=== PATIENT | male | born 1975 | race Caucasian/White ===

== ENCOUNTER 2024-05-02 10:38 | Emergency (ER) | payer SELFPAY ==
[2024-05-02] VITALS (15 sets, daily range): BP systolic 128–161; BP diastolic 69–89; PULSE 66–78; TEMP 36.6; O2SAT 95–100; BMI 32.4
--- NOTE | 2024-05-02 10:45 | ECG_ITS ---
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
--- NOTE | 2024-05-02 10:45 | XR_ITS ---
The [address] [address] Patient Name: JULIO CONCEPCION MRN: [id number] date: 1975 Sex: M Assigned Patient Location: ED.MAIN Current Patient Location: ED.MAIN Accession/Order Number: [id number] Exam Date: 05/02/2024 12:10 Report Date: 05/02/2024 12:27 At the request of: IDRSI QUINTANILLA Procedure: XR chest 1V EXAM: XR chest 1V HISTORY: Shortness of breath COMPARISON: 10/11/2019 TECHNIQUE: Single view of the chest FINDINGS: Heart and vascularity are unremarkable. Lungs are free of focal infiltrates. Minimal increased density is noted in the right cost phrenic angle. Right upper lobe is unremarkable. EKG leads overlie the chest. XR/XR chest 1V IMPRESSION: Small amount of increased density in the left cost phrenic angle. Findings could represent atelectasis, scarring, or less likely an early infiltrate. Remainder of lung mann are unremarkable. Electronically authenticated by: HA MIRANDA Date: 05/02/2024 12:27
[2024-05-02 11:01] LABS: Basophils Absolute Auto 0.1 10^3/uL (0.0-0.1); Basophils Percent Auto 0.6 % (0.2-2.0); Eosinophils Absolute Auto 0.6 10^3/uL (0.0-0.7); Eosinophils Percent Auto 4.4 % (0.9-7.0); Hematocrit 43.4 % (42.0-54.0); Immature Granulocytes Abs Auto 0.05 10^3/uL (0.00-0.03); Immature Granulocytes Pct Auto 0.4 % (0.0-0.5); Lymphocytes Absolute Auto 3.6 10^3/uL (1.2-3.8); Lymphocytes Percent Auto 28.2 % (20.5-60.0); Mean Corpuscular HGB Conc 34.6 g/dL (29.9-35.2); Mean Corpuscular Hemoglobin 27.8 pg (25.9-34.0); Mean Corpuscular Volume 80.5 fL (80.0-94.0); Mean Platelet Volume 9.3 fL (9.5-13.5); Monocytes Absolute Auto 0.7 10^3/uL (0.3-0.8); Monocytes Percent Auto 5.5 % (1.7-12.0); Neutrophils Absolute Auto 7.7 10^3/uL (1.4-6.5); Neutrophils Percent Auto 60.9 % (43.0-75.0); Platelet Count 270 10^3/uL (150-450); Red Blood Count 5.39 10^6/uL (4.70-6.10); Red Cell Distribution Width 13.4 % (11.0-15.0); White Blood Count 12.7 10^3/uL (4.0-11.0)
[2024-05-02] MEDS: IPRATROPIUM/ALBUTEROL SULFATE 3 ML AMPUL.NEB IH ×2 (11:16→13:46)
[2024-05-02 11:21] LABS: Prothrombin Time 9.8 sec (9.0-11.6)
[2024-05-02] MEDS: METHYLPREDNISOLONE SOD SUCC PF 125 MG/2 ML VIAL IVP (11:23)
[2024-05-02 11:26] LABS: Alanine Aminotransferase 23 U/L (16-63); Albumin Globulin Ratio 0.7; Albumin Level 3.2 g/dL (3.4-5.0); Alkaline Phosphatase 93 U/L (46-116); Anion Gap 14.2; BUN Creatinine Ratio 19.8; Bilirubin Total 0.4 mg/dL (0.2-1.0); Calcium 9.2 mg/dL (8.5-10.1); Carbon Dioxide 24.1 mmol/L (21.0-32.0); Estimated GFR (African America >60 (>=60); Estimated GFR (Non-African Ame >60 (>=60); Globulin 4.3 g/dL; Glucose 272 mg/dL (74-106); Magnesium 1.8 mg/dL (1.8-2.4); Total Protein 7.5 g/dL (6.4-8.2); Troponin I High Sensitivity 4.9 pg/mL (4.0-76.1)
[2024-05-02 11:30] LABS: INR <0.93
[2024-05-02 11:30] LABS: Internal Control Within Normal Limits; SARS-CoV-2 Ag NEGATIVE (NEGATIVE)
[2024-05-02 11:31] LABS: Lactate/Lactic Acid 1.3 mmol/L (0.4-2.0)
[2024-05-02 11:45] LABS: Aspartate Amino Transferase <5 U/L (15-37); Chloride 97 mmol/L (98-107); Sodium 131 mmol/L (136-145)
[2024-05-02 11:58] LABS: Potassium 4.3 mmol/L (3.5-5.1)
[2024-05-02 12:14] LABS: Ethanol 3 mg/dL
--- NOTE | 2024-05-02 12:59 | ED_ITS ---
HPI - SOB/Dyspnea General Chief Complaint: Shortness of Breath/Dyspnea Stated Complaint: SOB Time Seen by Provider: 05/02/24 10:45 Source: patient Mode of arrival: Wheelchair Limitations: no limitations History of Present Illness HPI Narrative: The patient have history of COPD he is a smoker of 2 packs of cigarettes daily, presenting to us with 2 days history of generalized body ache associated with cough as well as shortness of breath, it was noted that the patient almost passed out and fell to the floor when he got to the registration he did not actually pass out when I presented to evaluate him he was awake. 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 05/02/24 05/02/24 unit-liraglutide 3.6 mg/mL(3 mL) subcutaneous pen (Xultophy 100/3.6) lisinopril 5 mg tablet 5 mg PO DAILY 05/02/24 05/02/24 metoprolol tartrate 50 mg tablet 50 mg PO BID 05/02/24 05/02/24 oxycodone-acetaminophen 10 mg-325 1 tab PO Q6H PRN pain 05/02/24 05/02/24 mg tablet terbinafine HCl 250 mg tablet 250 mg PO DAILY 05/02/24 05/02/24 Allergies Allergy/AdvReac Type Severity Reaction Status Date / Time morphine Allergy Severe Anaphylaxis Verified 05/02/24 10:51 Review of Systems ROS Status of ROS 10 or more systems reviewed and unremark able except as noted in history and below Exam Narrative Exam Narrative: Nurses notes and vital signs reviewed and patient is not hypoxic. General: Well-appearing and in no apparent distress. Skin: Warm, dry, no pallor noted. No rash. Head: Normocephalic, atraumatic. Neck: Supple, non-tender. Eye: Pupils are equal, round and EOMI. No scleral icterus. Ears, Nose, Mouth, and Throat: TM are clear, no nasal mucosal hypertrophy. Oral mucosa is moist, no posterior oropharynx erythema, uvula is mid-line Cardiovascular: Regular Rate and Rhythm without murmur, gallop or rub. Respiratory: Distant breathing sound bilaterally Chest Wall: no tenderness Back: No midline thoracic or lumbar vertebral tenderness. No CVA tenderness Musculoskeletal: normal ROM, no calf or popliteal tenderness, no lower extremity edema/swelling GI: Abdomen is soft, non-distended. Normal bowel sounds. No masses appreciated. No tenderness to palpation. No rebound, guarding, or rigidity noted. Neurological: A&O x4. No cranial nerve dysfunction observed. No truncal ataxia. Moves all extremities. Sensation intact. Psychiatric: Cooperative and interactive. Normal mood and affect. Constitutional Vital Signs, click to edit/add: Last Vital Signs Temp 97.9 F 05/02/24 10:45 Pulse 67 05/02/24 13:25 Resp 14 05/02/24 13:25 BP 146/82 H 05/02/24 13:25 Pulse Ox 98 05/02/24 13:25 O2 Del Method Room Air 05/02/24 11:17 Course Vital Signs Vital signs: Vital Signs Temperature 97.9 F 05/02/24 10:45 Pulse Rate 78 05/02/24 10:45 Respiratory Rate 22 H 05/02/24 10:45 Blood Pressure 161/89 H 05/02/24 10:45 Pulse Oximetry 98 05/02/24 10:45 Oxygen Delivery Method Room Air 05/02/24 10:45 Temperature 97.9 F 05/02/24 10:45 Pulse Rate 67 05/02/24 13:25 Respiratory Rate 14 05/02/24 13:25 Blood Pressure 146/82 H 05/02/24 13:25 Pulse Oximetry 98 05/02/24 13:25 Oxygen Delivery Method Room Air 05/02/24 11:17 MDM - SOB/Dyspnea MDM Narrative Medical decision making narrative: The patient EKG in the ER showing sinus rhythm with a heart rate of [address] elevation or depression Upon presentation the patient mentioned that he smokes cigarettes almost 2 packs a day His presentation was shortness of breath on exertion as well as generalized body ache could be secondary to viral illness and COPD exacerbation Chest x-ray showed possible infiltrate or atelectasis with the patient presentation he will be covered with azithromycin The patient was feeling much better after breathing treatment in the ER as well as Solu-Medrol Patient was discharged home with the prednisone as well as Z-Pratik The patient is to follow up with primary care physician in next 2-3 days or to return to the emergency department should any of the signs or symptoms worsen or new symptoms develop. The patient agrees with the following Diagnosis and Treatment plan and the patient will be discharged home. Lab Data Labs: Lab Results 05/02/24 05/02/24 Range/Units 10:53 11:07 WBC 12.7 H (4.0-11.0) 10^3/uL RBC 5.39 (4.70-6.10) 10^6/uL Hgb 15.0 (14.0-18.0) g/dL Hct 43.4 (42.0-54.0) % MCV 80.5 (80.0-94.0) fL MCH 27.8 (25.9-34.0) pg MCHC 34.6 (29.9-35.2) g/dL RDW 13.4 (11.0-15.0) % Plt Count 270 (150-450) 10^3/uL MPV 9.3 L (9.5-13.5) fL Neut % (Auto) 60.9 (43.0-75.0) % Lymph % (Auto) 28.2 (20.5-60.0) % [place] % (Auto) 5.5 (1.7-12.0) % Eos % (Auto) 4.4 (0.9-7.0) % Baso % (Auto) 0.6 (0.2-2.0) % Neut # (Auto) 7.7 H (1.4-6.5) 10^3/uL Lymph # (Auto) 3.6 (1.2-3.8) 10^3/uL [place]uming # (Auto) 0.7 (0.3-0.8) 10^3/uL Eos # (Auto) 0.6 (0.0-0.7) 10^3/uL Baso # (Auto) 0.1 (0.0-0.1) 10^3/uL Abs Immat Gran (auto) 0.05 H (0.00-0.03) 10^3/uL Imm/Tot Granulo (auto) 0.4 (0.0-0.5) % PT 9.8 (9.0-11.6) sec INR <0.93 Sodium 131 L (136-145) mmol/L Potassium 4.3 (3.5-5.1) mmol/L Chloride 97 L (98-107) mmol/L Carbon Dioxide 24.1 (21.0-32.0) mmol/L Anion Gap 14.2 BUN 16.0 (7.0-18.0) mg/dL Creatinine 0.81 (0.70-1.30) mg/dL Est GFR ( Amer) >60 (>=60) Est GFR (Non-Af Amer) >60 (>=60) BUN/Creatinine Ratio 19.8 Glucose 272 H (74-106) mg/dL Lactate 1.3 (0.4-2.0) mmol/L Calcium 9.2 (8.5-10.1) mg/dL Magnesium 1.8 (1.8-2.4) mg/dL Total Bilirubin 0.4 (0.2-1.0) mg/dL AST <5 L (15-37) U/L ALT 23 (16-63) U/L Alkaline Phosphatase 93 (46-116) U/L Troponin I High Sens 4.9 (4.0-76.1) pg/mL Total Protein 7.5 (6.4-8.2) g/dL Albumin 3.2 L (3.4-5.0) g/dL Globulin 4.3 g/dL Albumin/Globulin Ratio 0.7 Ethanol Quant 3 mg/dL SARS-CoV-2 Ag (CV2AG) Negative (NEGATIVE) Discharge Plan Discharge Stand Alone Forms: Work/School Release, Portal Instructions Chief Complaint: Shortness of Breath/Dyspnea Clinical Impression: COPD exacerbation, Community acquired pneumonia Patient Disposition: Home, Self-Care Time of Disposition Decision: 13:36 Condition: Good Prescriptions / Home Meds: No Action terbinafine HCl 250 mg tablet 250 mg PO DAILY oxycodone-acetaminophen 10-325 mg tablet 1 tab PO Q6H PRN (Reason: pain) metoprolol tartrate 50 mg tablet 50 mg PO BID lisinopril 5 mg tablet 5 mg PO DAILY fluocinonide 0.05 % cream 1 applic TOPICAL BID Xultophy 100/3.6 100 unit-3.6 mg /mL (3 mL) insulin pen 50 unit SUBCUT .a.m. Print Language: [place] Instructions: COPD (Chronic Obstructive Pulmonary Disease) (DC), Community Acquired Pneumonia (ED) Referrals: Physician,Non-Staff, MD [Primary Care Provider] - 1 week
[2024-05-02] MEDS: KETOROLAC TROMETHAMINE 30 MG/ML VIAL 15 MG IVP (13:49)
[2024-05-02] MEDS: AZITHROMYCIN 250 MG TABLET 500 MG PO (13:50)
== END 2024-05-02 14:05 | disposition home or self-care (01) ==
PROVIDERS: Emergency Provider Emergency Medicine; Family Provider Internal Medicine
DX: J18.9 Pneumonia, unspecified organism (principal); J44.1 Chronic obstructive pulmonary disease with (acute) exacerbation; J44.0 Chronic obstructive pulmonary disease with (acute) lower respiratory infection; F17.210 Nicotine dependence, cigarettes, uncomplicated; Z20.822 Contact with and (suspected) exposure to COVID-19
CPT/HCPCS: 36415; 71045; 80053; 80320; 83605; 83735; 84484; 85025; 85610; 87811; 93005; 94640; 96374; 96375; 99285; J1885; J2919

== ENCOUNTER 2025-01-31 13:48 | Outpatient (OUT) | payer MEDICARE, SELFPAY ==
[2025-01-31 14:11] LABS: Basophils Absolute Auto 0.1 10^3/uL (0.0-0.1); Basophils Percent Auto 0.7 % (0.2-2.0); Eosinophils Absolute Auto 0.9 10^3/uL (0.0-0.7); Eosinophils Percent Auto 7.8 % (0.9-7.0); Hematocrit 42.7 % (42.0-54.0); Hemoglobin 13.8 g/dL (14.0-18.0); Immature Granulocytes Abs Auto 0.05 10^3/uL (0.00-0.03); Immature Granulocytes Pct Auto 0.4 % (0.0-0.5); Lymphocytes Absolute Auto 2.9 10^3/uL (1.2-3.8); Mean Corpuscular HGB Conc 32.3 g/dL (29.9-35.2); Mean Corpuscular Hemoglobin 24.9 pg (25.9-34.0); Mean Corpuscular Volume 77.1 fL (80.0-94.0); Mean Platelet Volume 9.4 fL (9.5-13.5); Monocytes Absolute Auto 0.5 10^3/uL (0.3-0.8); Monocytes Percent Auto 4.6 % (1.7-12.0); Neutrophils Absolute Auto 6.8 10^3/uL (1.4-6.5); Neutrophils Percent Auto 60.5 % (43.0-75.0); Platelet Count 408 10^3/uL (150-450); Red Blood Count 5.54 10^6/uL (4.70-6.10); Red Cell Distribution Width 14.7 % (11.0-15.0); White Blood Count 11.3 10^3/uL (4.0-11.0)
--- NOTE | 2025-01-31 14:24 | CT_ITS ---
The [address] [address] Patient Name: JULIO CONCEPCION MRN: [id number] date: 1975 Sex: M Assigned Patient Location: CT Current Patient Location: CT Accession/Order Number: [id number] Exam Date: 01/31/2025 15:59 Report Date: 01/31/2025 16:15 At the request of: IMANI SMITH Procedure: CT abdomen pelvis w con CT abdomen pelvis w con 01/31/2025 3:54 PM SIGNS AND SYMPTOMS: Abdominal pain greatest in the right upper quadrant TECHNIQUE: Multidetector ct axial images of the abdomen and pelvis were obtained without IV contrast. Multiplanar reformats were performed and reviewed to further define anatomy and possible pathology. CT was performed with one or more of the following dose reduction techniques: Automated exposure control, adjustment of the mA and/or kV according to patient size, or use of iterative reconstruction technique. COMPARISON: 03/12/2020 and 02/28/2020 FINDINGS: Lower Chest: Within normal limits. ABDOMEN: Liver: The liver is mildly hypoattenuating suggesting hepatic steatosis. Bile Ducts: Normal caliber. Gallbladder: No calcified gallstones. Normal caliber wall. Pancreas: There is a heterogeneously enhancing 3.9 x 4.2 cm structure within the body of the pancreas with dilation of the pancreatic duct distally. There are accompanying calcifications. This is larger when compared to the prior exam. This abuts the splenic artery appears to be patent. There is soft tissue fullness in the periportal region suggesting lymphadenopathy with the largest lymph node measuring 1.2 cm in short axis. These are more pronounced when compared to the prior exam suggestive of local metastatic disease. Spleen: Within normal limits. Adrenals: Within normal limits. Kidneys: There is a simple cyst in the left renal cortex requiring no further follow-up. Pelvis: Reproductive Organs: No pelvic masses. Ureters: Within normal limits. Bladder: Within normal limits. Bowel: There is a large amount stool within the rectum suggesting fecal impaction. Uncomplicated colonic diverticula are present. There is a normal appendix in the right lower quadrant. Mesenteric Lymph Nodes: No enlarged mesenteric lymph nodes. Peritoneum: No ascites or free air, no fluid collection. Vessels: within normal limits Retroperitoneum: Within normal limits. Abdominal Wall: Within normal limits. Bones: Degenerative changes are noted in the thoracolumbar spine, greatest at L5-S1 with significant bilateral neural foraminal narrowing at L3-L4, L4-5, and L5-S1. There is evidence of prior posterior decompression at L5-S1. CT/CT abdomen pelvis w con IMPRESSION: There is a heterogeneously enhancing 3.9 x 4.2 cm structure within the body of the pancreas with dilation of the pancreatic duct distally. There are accompanying calcifications. This is larger when compared to the prior exam. This abuts the splenic artery appears to be patent. There is soft tissue fullness in the periportal region suggesting lymphadenopathy with the largest lymph node measuring 1.2 cm in short axis. These are more pronounced when compared to the prior exam suggestive of local metastatic disease. The liver is mildly hypoattenuating suggesting hepatic steatosis. There is a large amount stool within the rectum suggesting fecal impaction. Uncomplicated colonic diverticula are present. Impression dictated by: Farzad Ashby M.D. 01/31/2025 4:15 PM Dictation Location: [place] [address] Electronically authenticated by: [id number] Y Date: 01/31/2025 16:15
[2025-01-31 14:32] LABS: Amylase 124 U/L (25-115)
[2025-01-31 14:34] LABS: Alanine Aminotransferase 19 U/L (16-63); Albumin Globulin Ratio 0.6; Albumin Level 2.9 g/dL (3.4-5.0); Alkaline Phosphatase 103 U/L (46-116); Anion Gap 12.1; Aspartate Amino Transferase 11 U/L (15-37); Bilirubin Total 0.2 mg/dL (0.2-1.0); Calcium 9.1 mg/dL (8.5-10.1); Carbon Dioxide 29.6 mmol/L (21.0-32.0); Chloride 100 mmol/L (98-107); Estimated GFR (African America >60 (>=60 mL/min/1.73m^2); Estimated GFR (Non-African Ame >60 (>=60 mL/min/1.73m^2); Glucose 308 mg/dL (74-106); Potassium 4.7 mmol/L (3.5-5.1); Sodium 137 mmol/L (136-145); Total Protein 7.9 g/dL (6.4-8.2)
--- OUTSIDE RECORDS SUMMARY | 2025-01-31 18:31 | XMS_ITS | CCD ---
Author Organization [facility] Care Team Providers Care Import/Export Clerk Name Role Phone AMBER ZAMARRIPA Unavailable Unavailable AMBER ZAMARRIPA Unavailable Unavailable KIRYB HOLT Unavailable Unavailable DEJEМАРИЯEAMADO N Unavailable Unavailable IKEZUAGU, MBONU N Unavailable Unavailable KIRBY HLOT B Unavailable Unavailable SINCERE LEA Unavailable Unavailable KIRBY HOLT B Unavailable Unavailable ZAKERI, AHMAD Unavailable Unavailable IKEZUAGU, MBONU N Unavailable Unavailable IKEZUAGU, MBONU N Unavailable Unavailable BLOOD, DAYANA P Unavailable Unavailable NARWAL, RAWAN Unavailable Unavailable IKEZUAGU, MBONU N Unavailable Unavailable MYRIAM, CECELIA S Unavailable Unavailable LOBARYEN Unavailable Unavailable CULLEN MONTANA Attending Unavailable CULLEN MONTANA Admitting Unavailable SARAH, DR DIALLO Primary Care Unavailable SARAH, DR DIALLO Primary Care Unavailable CULLEN MONTANA Admitting Unavailable CULLEN MONTANA Attending Unavailable LYNETTE, DR WISE Attending Unavailable LYNETTE, DR WISE Admitting Unavailable SARAH, DR DIALLO Primary Care Unavailable LYNETTE, DR WISE Consulting Unavailable CHIQUIS LOCK Consulting Unavailable SWATHI TITUS Consulting Unavailable ERICA CLAYTON Consulting Unavailable SARAH, DR DIALLO Primary Care Unavailable CULLEN MONTANA Admitting Unavailable CULLEN MONTANA Attending Unavailable SARAH, DR DIALLO Primary Care Unavailable CULLEN MONTANA Attending Unavailable CULLEN MONTANA Admitting Unavailable SARAH, DR DIALLO Primary Care Unavailable CULLEN MONTANA Admitting Unavailable CULLEN MONTANA Attending Unavailable PRINCESS TEJEDA Attending Unavailable PRINCESS TEJEDA Admitting Unavailable SARAH, DR DIALLO Primary Care Unavailable DR MARIE PORTILLO Consulting Unavailable NIRMALA, DR JOYA Garcia Consulting Unavailable CULLEN MONTANA Consulting Unavailable PRINCESS TEJEDA Consulting Unavailable JOSE LEGGETT Consulting Unavailable STEPHAN KC Consulting Unavailable HEATHER, DR GAIL Garcia Attending Unavailable HEATHER, DR GAIL Garcia Admitting Unavailable SARAH, DR DIALLO Primary Care Unavailable HEATHER, DR GAIL Garcia Consulting Unavailable SARAH, DR DIALLO Consulting Unavailable SARAH, DR DIALLO Attending Unavailable SARAH, DR DIALLO Admitting Unavailable SARAH, DR DIALLO Primary Care Unavailable ALLYSON RODRIGEZ Consulting Unavailable SAILAJA SHAW Attending UnavailSTEPHAN Powell Admitting Unavailable HOLT, DR DIALLO Primary Care Unavailable ZIMARIBETH, DR JOYA Garcia Consulting Unavailable SAILAJA SHAW Consulting Unavailabl e CULLEN MONTANA Attending Unavailable HIGHLANDER, CULLEN Ocampo Admitting Unavailable HOLT, DR DIALLO Primary Care Unavailable HOLT, DR DIALLO Primary Care Unavailable HIGHLRAQUEL, CULLEN Ocampo Admitting Unavailable RUBÉN, CULLEN Ocampo Attending Unavailable SARAH, DR DIALLO Primary Care Unavailable RUBÉN, CULLEN Ocampo Admitting Unavailable HIGHLANDER, CULLEN Ocampo Attending Unavailable SARAH, DR DIALLO Primary Care Unavailable RUBÉN, CULLEN Ocampo Admitting Unavailable HIGHLRAQUEL, CULLEN Ocampo Attending Unavailable SARAH, DR DIALLO Primary Care Unavailable CULLEN MONTANA Admitting Unavailable RUBÉN, CULLEN Ocampo Attending Unavailable Kirby Holt MD Primary Care Provider Kirby Holt MD Unavailable [phone] Santiago INSTRUCTIONAL TECHNOLOGY INSTRUCTOR, Faith Unavailable NONE, XXXX Primary Care Physician Unavailab Julio Ramires Attending Unavailable Zahra Wright RN Unavailable Santiago INSTRUCTIONAL TECHNOLOGY INSTRUCTOR, Humera Unavailable Unavailable SELENA CONTRERAS Attending Unavailable KIRBY HOLT Attending Unavailable KIRBY HOLT Attending Unavailable KIRBY HOLT Attending Unavailable KIRBY HOLT Attending Unavailable ANUJ ROBERTSON Attending Unavailable KIRBY HOLT Referring Unavailable Allergies Allergy Classification Reported Allergen(s) Allergy Type Date of Onset Reaction(s) Facility (1 source) Cephalexin Drug Allergy 10-29-2019 [facility] Rep[facility] (3 sources) Morphine; Translations: [morphine] Drug Allergy 08-05-2014 [facility] (20 sources) Morphine; Translations: [morphine] Drug Allergy 05-20-2018 Unknown [facility] Healthcare Work Phone: Medications Current Medications Medication Drug Class(es) Dates Sig (Normalized) Sig (Original) acetaminophen 325 mg / oxyCODONE hydrochloride 10 mg oral tablet (20 sources) Opioid Agonist Start: 12-14-2024 End: 02-18-2025 take 1 tablet by mouth every six hours for pain oxyCODONE-acetamino phen (Percocet) 10-325 MG tablet Indications: Spinal stenosis of lumbar region, unspecified whether neurogenic claudication present Take 1 tablet by mouth every 6 (six) hours if needed for severe pain 120 tablet 01/19/2025 02/18/2025 Active Start: 11-02-2024 End: 12-12-2024 take 1 tablet by mouth every six hours for pain oxyCODONE-acetaminophen (Percocet) 10-32 5 MG tablet Indications: Spinal stenosis of lumbar region, unspecified whether neurogenic claudication present Take 1 tablet by mouth every 6 (six) hours if needed for severe pain 120 tablet 11/07/2024 12/12/2024 Discontinued (Reorder) Start: 07-05-2024 End: 10-31-2024 take 1 tablet by mouth every six hours for pain oxyCODONE-acetaminophen (Percocet) 10-32 5 MG tablet Indications: Spinal stenosis of lumbar region, unspecified whether neurogenic claudication present Take 1 tablet by mouth every 6 (six) hours if needed for severe pain 120 tablet 09/30/2024 10/31/2024 Discontinued (Reorder) Start: 03-30-2024 End: 06-02-2024 take 1 tablet by mouth every six hours for pain oxyCODONE-acetaminophen (Percocet) 10-32 5 MG tablet Indications: Spinal stenosis of lumbar region, unspecified whether neurogenic claudication present Take 1 tablet by mouth every 6 (six) hours if needed for severe pain 120 tablet 06/02/2024 Active [id number] actuat albuterol 0.09 mg/actuat metered dose inhaler (20 sources) beta2-Adrenergic Agonist Start: 06-02-2024 End: 06-02-2025 take 2 puff(s) by inhalation every four hours for wheezing albuterol HFA (Ventolin HFA) 90 mcg/act inhaler Indications: Tachycardia Inhale 2 puffs every 4 (four) hours if needed for wheezing 18 g 11 06/02/2024 06/02/2025 Active End: 06-02-2024 take 1 puff(s) by inhalation every six hours for wheezing albuterol HFA 90 mcg/act inhaler Inhale 1 puff every 6 (six) hours if needed for wheezing or shortness of breath. 06/02/2024 Discontinued ALPRAZolam 0.5 mg oral tablet (20 sources) Benzodiazepine Start: 07-03-2022 take 1 tablet by mouth four times daily as needed for anxiety ALPRAZolam (Xanax) 0.5 MG tablet Take 0.5 mg by mouth 4 (four) times a day as needed for anxiety. 07/03/2022 Active amoxicillin 875 mg / clavulanate 125 mg oral tablet (2 sources) Penicillin-class Antibacterial Start: 08-01-2024 End: 08-11-2024 take 1 tablet by mouth in the morning amoxicillin-clavul anate (Augmentin) 875-125 MG tablet Indications: Acute non-recurrent sinusitis, unspecified location Take 1 tablet (875 mg) by mouth in the morning and 1 tablet (875 mg) before bedtime. Do all this for 10 days. 20 tablet 08/01/2024 08/11/2024 Active azithromycin 250 mg oral tablet (3 sources) Macrolide Antimicrobial Start: 05-02-2024 End: 05-07-2024 azithromycin (Zithromax) 250 MG tablet 05/02/2024 05/07/2024 Active famotidine 20 mg oral tablet (2 sources) Histamine-2 Receptor Antagonist take 1 tablet by mouth once daily famotidine (Pepcid) 20 MG tablet Take 20 mg by mouth Daily Active fluocinonide 0.5 mg/ml topical cream (20 sources) Corticosteroid Start: 04-04-2024 fluocinonide (Lidex) 0.05 % cream Indications: Onychomycosis APPLY TO AFFECTED AREA TWICE A DAY 60 g 5 04/04/2024 Active 3 ml insulin degludec 100 unt/ml / liraglutide 3.6 mg/ml pen injector (20 sources) Insulin Analog, GLP-1 Receptor Agonist Start: 01-01-2024 End: 12-31-2024 insulin degludec-liragluti de (Xultophy) 100-3.6 UNIT-MG/ML pen Indications: Type 2 diabetes mellitus with diabetic polyneuropathy, with long-term current use of insulin ([facility]) , Type 2 diabetes mellitus with other skin complications INJECT 50 UNITS UNDER THE SKIN EVERY DAY 15 mL 9 06/29/2024 Active lisinopril 5 mg oral tablet (20 sources) Angiotensin Converting Enzyme Inhibitor Start: 07-27-2024 End: 08-26-2024 take 1 tablet by mouth once daily lisinopril 5 MG tablet Indications: Essential hypertension (CMS/HCC) Take 1 tablet (5 mg) by mouth Daily 30 tablet 07/27/2024 Active Start: 05-12-2023 End: 05-04-2024 take 1 tablet by mouth once daily lisinopril 5 MG tablet Indications: Essential hypertension (CMS/HCC) Take 1 tablet (5 mg) by mouth Daily 100 tablet 3 05/04/2024 Active loratadine 10 mg oral tablet (20 sources) take 1 tablet by mouth in the morning loratadine (Claritin) 10 MG tablet Take 10 mg by mouth in the morning. Active metoprolol tartrate 50 mg oral tablet (20 sources) beta-Adrenergic Denny Start: 03-18-20 End: 06-02-20 take 1 tablet by mouth in the morning metoprolol tartrate (Lopressor) 50 MG tablet Indications: Tachycardia Take 1 tablet (50 mg) by mouth in the morning and 1 tablet (50 mg) before bedtime. 180 tablet 3 06/02/2024 06/02/2025 Active naproxen 500 mg oral tablet (1 source) Nonsteroidal Anti-inflammatory Drug Start: 08-15-20 End: 08-25-20 take 1 tablet by mouth twice daily naproxen 500 mg Tab 500 mg = 1 tab(s), Oral, BID, X 10 day(s), # 20 tab(s), Refills(s) 0, Pharmacy: [facility]/pharmacy #[id number], 193, cm, 08/15/24 11:51:00 EST, Height/Length Dosing, 119.5, kg, 08/15/24 11:51:00 EST, Weight Dosing Start Date: 08/15/24 Stop Date: 08/25/24 Status: Ordered nystatin 100 unt/mg topical powder (20 sources) Polyene Antifungal Start: 03-31-20 nystatin (Mycostatin) 387449 UNIT/GM powder APPLY DAILY TO SKIN TO AFFECTED AREA TWICE A DAY FOR 2 WEEKS 03/31/2022 Active omeprazole 40 mg delayed release oral capsule (2 sources) Proton Pump Inhibitor Start: 01-24-20 End: 01-24-20 take 1 capsule by mouth in the morning omeprazole (PriLOSEC) [address] capsule Indications: Gastroesophageal reflux disease, unspecified whether esophagitis present Take 1 capsule (40 mg) by mouth in the morning and 1 capsule (40 mg) in the evening. Take before meals. Do not crush or chew. 60 capsule 1 01/23/2025 01/23/2026 Active predniSONE 20 mg oral tablet (3 sources) Start: 05-02-20 End: 05-08-20 predniSONE (Deltasone) 20 MG tablet 05/02/2024 05/08/2024 Active terbinafine 250 mg oral tablet (20 sources) Allylamine Antifungal Start: 07-05-20 End: 11-08-19 take 1 tablet by mouth in the morning terbinafine (LamISIL) 250 MG tablet Indications: Onychomycosis Take 1 tablet (250 mg) by mouth in the morning. 60 tablet 11/07/2024 Active Start: 02-22-2024 End: 05-04-2024 take 1 tablet by mouth in the morning terbinafine (LamISIL) 250 MG tablet Indications: Onychomycosis Take 1 tablet (250 mg) by mouth in the morning. 60 tablet 05/04/2024 Active Completed/Discontinued Medications Medication Drug Class(es) Dates Sig (Normalized) Sig (Original) methylPREDNISolone (7 sources) Corticosteroid Start: 12-29-2024 End: 01-23-2025 methylPREDNISolone (Medrol Dospak) 4 MG tablets Indications: Spinal stenosis of lumbar region, unspecified whether neurogenic claudication present TAKE 6 TABLETS ON DAY 1 DIRECTED ON PACKAGE AND DECREASE BY 1 TAB EACH DAY FOR A TOTAL OF 6 DAYS each 12/29/2024 01/23/2025 Discontinued (Therapy completed) Start: 12-29-2024 methylPREDNISo lone (Medrol Dospak) 4 MG tablets Indications: Spinal stenosis of lumbar region, unspecified whether neurogenic claudication present TAKE 6 TABLETS ON DAY 1 DIRECTED ON PACKAGE AND DECREASE BY 1 TAB EACH DAY FOR A TOTAL OF 6 DAYS 21 each 12/29/2024 Active Start: 09-01-2024 End: 09-08-2024 methylPREDNISolone (Medrol D ospak) 4 MG tablets Indications: Spinal stenosis of lumbar region, unspecified whether neurogenic claudication present Follow schedule on package instructions 21 tablet 09/01/2024 09/08/2024 Active Start: 08-15-2024 End: 08-21-2024 Medrol 4 mg Tab = 1 packet(s ), Oral, As Directed, as directed on package labeling, X 6 day(s), # 21 tab(s), Refills(s) 0, Pharmacy: [facility]/pharmacy #[id number], 193, cm, 08/15/24 11:51:00 EST, Height/Length Dosing, 119.5, kg, 08/15/24 11:51:00 EST, Weight Dosing Start Date: 08/15/24 Stop Date: 08/21/24 Status: Ordered pantoprazole 20 mg delayed release oral tablet (20 sources) Proton Pump Inhibitor End: 01-23-2025 take 1 tablet by mouth before mealtime pantoprazole (Protonix) 20 MG EC tablet Take 20 mg by mouth in the morning. Take before meals. 01/23/2025 Discontinued Problems Active Problems Problem Classification Problem Date Documented Date Episodic/Chronic Abdominal pain (10 sources) Unspecified abdominal pain; Translations: [Epigastric pain] Onset: 01-12-2022 Episodic Anxiety disorders (10 sources) Anxiety disorder, unspecified; Translations: [Generalized anxiety disorder] Onset: 01-10-2022 11-07-2024 Chronic Asthma (20 sources) Mild intermittent asthma; Translations: [Mild intermittent asthma, uncomplicated] Onset: 01-15-2024 01-15-2024 Chronic Chronic obstructive pulmonary disease and bronchiectasis (1 source) Chronic obstructive pulmonary disease, unspecified; Translations: [COPD UNSPECIFIED] Onset: 01-14-2022 Chronic Chronic ulcer of skin (20 sources) Non-pressure chronic ulcer of other part of right foot limited to breakdown of skin; Translations: [Non-pressure chronic ulcer of other part of right foot with fat layer exposed] Onset: 08-15-2021 03-18-2023 Chronic Complications of surgical procedures or medical care (9 sources) Other complications of amputation stump; Translations: [Necrosis of amputation stump, right lower extremity] Onset: 09-12-2021 Episodic Diabetes mellitus with complications (20 sources) Type 2 diabetes mellitus with diabetic polyneuropathy; Translations: [Type 2 diabetes mellitus with hyperglycemia] Onset: 08-08-2021 Chronic Diabetes mellitus without complication (1 source) Type 2 diabetes mellitus without complications; Translations: [Type 2 diabetes mellitus without complications] Onset: 03-26-2018 Chronic Digestive congenital anomalies (20 sources) Disorder of pancreas; Translations: [Other congenital malformations of pancreas and pancreatic duct] Onset: 03-18-2023 03-18-2023 Chronic Disorders of lipid metabolism (20 sources) Mixed hyperlipidemia; Translations: [Mixed hyperlipidemia] Onset: 05-25-2017 05-12-2023 Chronic Diverticulosis and diverticulitis (20 sources) Diverticulosis of colon; Translations: [Diverticulosis of large intestine without perforation or abscess without bleeding] Onset: 03-18-2023 03-18-2023 Chronic Esophageal disorders (2 sources) Gastroesophageal reflux disease; Translations: [Gastro-esophageal reflux disease without esophagitis] 01-23-2025 Chronic Essential hypertension (20 sources) Essential (primary) hypertension; Translations: [Essential hypertension] Onset: 05-24-2017 05-12-2023 Chronic Fluid and electrolyte disorders (1 source) Hypokalemia; Translations: [HYPOKALEMIA] Onset: 01-14-2022 Episodic Infective arthritis and osteomyelitis (except that caused by tuberculosis or sexually transmitted disease) (4 sources) Other acute osteomyelitis, right ankle and foot; Translations: [Other chronic osteomyelitis, right ankle and foot] Onset: 07-30-2021 Chronic Mood disorders (20 sources) Moderate major depression, single episode; Translations: [Major depressive disorder, single episode, moderate] Onset: 03-18-2023 03-18-2023 Chronic Osteoarthritis (1 source) Osteoarthritis of hip; Translations: [Osteoarthritis of hip, unspecified] Onset: 08-15-2024 Chronic Other aftercare (1 source) Other terminal gauger (current) drug therapy; Translations: [OTH RETIREMENT CURRENT DRUG THERAPY] Onset: 01-14-2022 Episodic Other circulatory disease (1 source) Other specified symptoms and signs involving the circulatory and respiratory systems; Translations: [OTH SPEC SX SIGNS INVLV CIRC RS] Onset: 01-10-2022 Episodic Other connective tissue disease (2 sources) Pain in buttock; Translations: [Myalgia, other site] 09-01-2024 Episodic Other hereditary and degenerative nervous system conditions (1 source) Other idiopathic peripheral autonomic neuropathy; Translations: [OTH IDIO PERIPH AUTONOM NEUROPATHY] Onset: 01-10-2022 Chronic Other inflammatory condition of skin (1 source) Psoriasis vulgaris; Translations: [PSORIASIS VULGARIS] Onset: 01-10-2022 Chronic Other inflammatory condition of skin (20 sources) Psoriasis; Translations: [Psoriasis, unspecified] Onset: 03-18-2023 03-18-2023 Chronic Other nervous system disorders (3 sources) Other chronic pain; Translations: [Unspecified cord compression] Onset: 03-12-2018 Chronic Other nervous system disorders (20 sources) Cervical plexopathy; Translations: [Cervical root disorders, not elsewhere classified] Onset: 03-18-2023 03-18-2023 Chronic Other nervous system disorders (1 source) Idiopathic peripheral neuropathy; Translations: [Hereditary and idiopathic neuropathy, unspecified] 09-21-2024 Chronic Other nervous system disorders (1 source) Unspecified disturbances of skin sensation; Translations: [UNS DISTURBANCES OF SKIN SENSATION] Onset: 01-10-2022 Episodic Other nervous system disorders (1 source) Numbness and tingling sensation of skin; Translations: [Anesthesia of skin] 09-21-2024 Episodic Other non-traumatic joint disorders (1 source) Pain of left hip joint; Translations: [Pain in left hip] Onset: 08-15-2024 Episodic Other nutritional; endocrine; and metabolic disorders (2 sources) Morbid (severe) obesity due to excess calories; Translations: [Morbid (severe) obesity due to excess calories] Onset: 03-27-2018 Chronic Other nutritional; endocrine; and metabolic disorders (1 source) Body mass index (BMI) 36.0-36.9, adult; Translations: [BODY MASS INDEX BMI 36.0-36.9 ADULT] Onset: 01-14-2022 Chronic Other nutritional; endocrine; and metabolic disorders (1 source) Body mass index (BMI) 40.0-44.9, adult; Translations: [BODY MASS INDEX BMI 40.0-44.9 ADULT] Onset: 08-15-2021 Chronic Other nutritional; endocrine; and metabolic disorders (20 sources) Body mass index 30+ - obesity; Translations: [Obesity, unspecified] Onset: 03-18-2023 03-18-2023 Chronic Other nutritional; endocrine; and metabolic disorders (4 sources) Weight decreased; Translations: [Abnormal weight loss] 01-23-2025 Episodic Other screening for suspected conditions (not mental disorders or infectious disease) (20 sources) Computed tomography result abnormal; Translations: [Abnormal findings on diagnostic imaging of other specified body structures] Onset: 03-18-2023 03-18-2023 Chronic Other skin disorders (1 source) Disorder of the skin and subcutaneous tissue, unspecified; Translations: [DISORDER SKIN AND SUBQ TISSUE UNS] Onset: 01-10-2022 Episodic Other upper respiratory infections (2 sources) Acute sinusitis; Translations: [Acute sinusitis, unspecified] 08-01-2024 Episodic Pancreatic disorders (not diabetes) (5 sources) Other specified diseases of pancreas; Translations: [Acute pancreatitis without necrosis or infection, unspecified] Onset: 03-03-2022 Episodic Paralysis (1 source) Cauda equina syndrome; Translations: [Cauda equina syndrome] Onset: 03-27-2018 Chronic Peripheral and visceral atherosclerosis (7 sources) Peripheral vascular disease, unspecified; Translations: [Atherosclerosis of [place] arteries of left leg with ulceration of heel and midfoot] Onset: 08-15-2021 05-04-2024 Chronic Spondylosis; intervertebral disc disorders; other back problems (20 sources) Other intervertebral disc displacement, thoracic region; Translations: [Prolapsed cervical intervertebral disc without myelopathy] Onset: 03-12-2018 03-18-2023 Chronic Substance-related disorders (19 sources) Nicotine dependence, cigarettes, uncomplicated; Translations: [Nicotine dependence, cigarettes, with other nicotine-induced disorders] Onset: 01-10-2022 08-15-2024 Chronic Comment on above: Added secondary to d ocumentation in Social History. Unclassified (1 source) CONTACT W/AND (SUSP) EXPOS COVID-19; Translations: [CONTACT W/AND (SUSP) EXPOS COVID-19] Onset: 03-03-2022 Unclassified (1 source) LOW BACK PAIN, UNSPECIFIED; Translations: [LOW BACK PAIN, UNSPECIFIED] Onset: 01-14-2022 Past or Other Problems Problem Classification Problem Date Documented Da te Episodic/Chronic Cardiac dysrhythmias (20 sources) Tachycardia, unspecified; Translations: [Tachycardia] Onset: 01-10-2022 03-18-2023 Episodic Mycoses (20 sources) Onychomycosis; Translations: [Tinea unguium] Onset: 03-18-2023 03-18-2023 Episodic Other aftercare (20 sources) Long-term current use of insulin; 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] Onset: 07-17-2021 06-12-2023 Episodic Other connective tissue disease (20 sources) Neurogenic claudication; Translations: [Other symptoms and signs involving the nervous system] Onset: 11-12-2018 05-12-2023 Episodic Other connective tissue disease (20 sources) Muscle pain; Translations: [Myalgia, unspecified site] Onset: 10-13-2023 10-13-2023 Episodic Other diseases of kidney and ureters (20 sources) Hydronephrosis; Translations: [Unspecified hydronephrosis] Onset: 03-18-2023 03-18-2023 Episodic Other skin disorders (1 source) Ingrowing nail; Translations: [INGROWING NAIL] Onset: 09-10-2021 Episodic Other skin disorders (1 source) Corns and callosities; Translations: [CORNS AND CALLOSITIES] Onset: 08-15-2021 Episodic Spondylosis; intervertebral disc disorders; other back problems (20 sources) Low back pain; Translations: [Lumbosacral radiculitis] Onset: 03-26-2018 03-18-2023 Episodic Results Test Name Value Interpretation Reference Range Facility Laboratory - Hematology and Cell countson 11-07-2024 HbA1c (Bld) [Mass fraction] 8.9 % [facility] No Panel Informationon 11-07 Interpretation and review of laboratory results Abnormal [facility] EMG 2 Extremitieson 09-21-19 25 EMG/NCS BLE Severe sensory-motor neuropathy [facility] EMG AND NERVE CONDUCTION RENA DYon 09-21-2024 [facility] NVC 9-10 Nerveson 09-21-2024 EMG/NCS BLE Severe sensory-motor neuropathy [facility] ED Note-Physicianon 08-19-20 24 ED Note-Physician ED Note-Physician Basic Information Time Seen: Chong KENDRICK, Raul Henderson 08/15/2024 12:34 Chief Complaint Pt states left hip pain for 3-4 weeks. denies known ALEXANDRO. He states he falls frequently but does not think it is from that. hx of back surgeries and arthritis. History of Present Illness Patient is a 48-year-old male that presents today for evaluation of his left hip pain. Patient states it has been going on for the last 3 to 4 weeks and has been worsening. He is on Percocet for his chronic back pain and does note that he has had back pain with this hip pain. He states he has history of back surgeries and arthritis in his back. Has screws and rods and had this done in [place] many years ago. He denies any recent inciting injury or event. He states that the Percocet that he takes daily is not helping his pain but he is not taking anything else on top of this. He does note that his pain will occasionally radiate from his back all the way down to his left foot. He denies any saddle anesthesia, loss of bowel or bladder control, or lower extremity weakness. Review of Systems No other aggravating or relieving factors no other associated symptoms no other prior treatments or complaints. Family: Reviewed and noncontributory Social: lives at home Review of systems negative unless otherwise specified in the HPI. Physical Exam Vitals & Measurements T: 36.7 ???C(Oral) HR: 85(Peripheral) RR: 16 BP: 141/74 SpO2: 97% HT: 193.04 cm WT: 119.5 kg BMI: 32.07 Vital Signs reviewed and noted. General: Alert, no acute distress, patient resting comfortably Skin: warm, intact, no pallor noted Head: Normocephalic, atraumatic Eye: Normal conjunctiva Cardiac: Normal peripheral perfusion Respiratory: No acute distress Musculoskeletal: No deformity, full ROM. Tenderness to the lateral aspect of the left hip. Mild pain with flexion extension of the hip. No pain with internal and external rotation of the hip. Neurovascular intact distally. DPP 2+ bilaterally. Sensation intact distally. Lumbar spine: There is mild left-sided tenderness to palpation of the lumbar spine. Negative straight leg raise. No step-off or crepitus appreciated. Intact strength and sensation to bilateral lower extremities. Neurological: alert and oriented, normal sensory and motor observed. Psychiatric: Cooperative Medical Decision Making Patient is a 48-year-old male who presents today for evaluation of his left hip pain. Is been going on for the last 3 to 4 weeks and has been worsening. He is on Percocet for his chronic back pain has had multiple surgeries and arthritis in his back. Denies any signs or symptoms concerning for cauda equina syndrome. On exam the patient is afebrile nontoxic-appearing. He does have tenderness to the lateral aspect of the left hip. Mild pain with range of motion of the left hip specifically flexion and extension. Mild tenderness to the left side of the lumbar spine. Intact strength and sensation of bilateral lower extremities. X-rays of the left hip and pelvis demonstrate mild osteoarthritis of the left hip but no acute findings. I spoke with the patient he likely has pain stemming from both the hip as well as the chronic lower back issues that he has given his radicular symptoms. He is already on Percocet and will continue on this and we will start him on naproxen and a Medrol Dosepak. I did provide him with a dose of IM Toradol as well as Kenalog here in the ED. He will be provided with Dr. Gunn neurosurgery as well as Dr. Young orthopedics to follow-up with as an outpatient. Return to ED precautions were reviewed with the patient at length. Assessment/Plan Left hip pain (M25.552: Pain in left hip) Low back pain (M54.50: Low back pain, unspecified) Lumbar radiculopathy (M54.16: Radiculopathy, lumbar region) Osteoarthritis of hip (M16.9: Osteoarthritis of hip, unspecified) Orders: ketorolac, 30 mg = 1 mL, Injection, IntraMuscular, Once, Stop date 08/15/24 13:19:00 EST, STAT, Start date 08/15/24 13:19:00 EST, 08/15/24 13:19:00 EST methylPREDNISolone, = 1 packet(s), Oral, As Directed, as directed on package labeling, X 6 day(s), # 21 tab(s), Refills(s) 0, Pharmacy: [facility]/pharm[facility] #[id number], 193, cm, 08/15/24 11:51:00 EST, Height/Length Dosing, 119.5, kg, 08/15/24 11:51:00 EST, Weight Dosing naproxen, 500 mg = 1 tab(s), Oral, BID, X 10 day(s), # 20 tab(s), Refills(s) 0, Pharmacy: [facility]/pharmacy #[id number], 193, cm, 08/15/24 11:51:00 EST, Height/Length Dosing, 119.5, kg, 08/15/24 11:51:00 EST, Weight Dosing triamcinolone, 40 mg = 1 mL, Susp-Inj, IntraMuscular, Once, Stop date 08/15/24 13:19:00 EST, STAT, Start date 08/15/24 13:19:00 EST, 08/15/24 13:19:00 EST Medications Administered Given Kenalog 40 mg Injection, 40 mg, IntraMuscular ketorolac 30 mg/mL Inj 1 mL, 30 mg, IntraMuscular Disposition Plan Patient Discharge Condition Stable Discharge Disposition Home Discharge Prescription List Prescriptions Medrol 4 mg Tab, 1 packet(s), Oral, As Directed (more content not included)... Normal [facility] Comment on above: Result Comment: Elec tronically Signed By: Raul Schwarz PA-C\.br\Date and Time Signed: 08/15/24 13:43 EST\.br\Electronically Co-Signed By: Julio Tapia DO\.br\Date and Time Co-Signed: 08/19/24 07:21 EST ED Clinical Summaryon 2023 ED Clinical Summary ED Clinical Summary [place] [id number] ED Clinical Summary Person [facility] Age[facility] 48 Years : 1975 Sex: Male Language: Hebrew PCP: NONE, XXXX Marital Status: Single Phone: [phone] Visit Id: Visit Reason: Hip pain-swelling; HIP PAIN Speciality: Acuity: 4 Enc Type: Emergency Med Service: Emergency Arrival: 08/15/2024 11:30:10 Discharge: 08/15/2024 13:42:21 LOS: 000 02:12 Checkin: 08/15/2024 11:30:10 Checkout: 08/15/2024 13:42:21 Dispo Type: Home (Routine DC) EVENTS: Event Name Event Status Request Date/Time Start Date/Time Complete Date/Time Arrive Complete 08/15/2024 11:30:10 08/15/2024 11:30:10 08/15/2024 11:30:10 Document Home Meds Request 08/15/2024 11:30:10 Triage Complete 08/15/2024 11:30:10 08/15/2024 11:51:04 08/15/2024 11:51:04 Registration Complete 08/15/2024 11:44:40 08/15/2024 11:44:40 08/15/2024 11:44:40 Reg Complete Request 08/15/2024 11:44:40 Reg Bed Request Complete 08/15/2024 11:44:40 08/15/2024 11:44:40 08/15/2024 11:44:40 X-Ray Cancel 08/15/2024 11:51:46 08/15/2024 12:03:43 X-Ray Complete 08/15/2024 12:03:42 08/15/2024 12:03:56 08/15/2024 12:20:42 Wet Read Request 08/15/2024 12:20:42 Bed Assign Complete 08/15/2024 12:34:09 08/15/2024 12:34:09 08/15/2024 12:34:09 Dr Exam Complete 08/15/2024 12:34:09 08/15/2024 12:34:31 08/15/2024 12:34:31 RN Exam Complete 08/15/2024 12:34:09 08/15/2024 12:41:45 08/15/2024 12:41:45 Registration Request 08/15/2024 12:34:31 Dr Exam Complete 08/15/2024 12:43:29 08/15/2024 12:43:29 08/15/2024 12:43:29 Meds Admin Complete 08/15/2024 13:20:09 08/15/2024 13:38:00 Discharge Complete 08/15/2024 13:22:42 08/15/2024 13:42:32 08/15/2024 13:42:32 Transfer Complete 08/15/2024 13:42:32 08/15/2024 13:42:32 08/15/2024 13:42:32 ADDRESS: [address] [place] [id number] PHYS DOC NOTES: MEDICAL INFORMATION: Prescriptions Given: New Medications [id number], [address], [place] [id number], [phone] methylPREDNISolone (Medrol 4 mg Tab) 1 Packets By Mouth As Directed for 6 Days. as directed on package labeling. Refills: 0. naproxen (naproxen 500 mg Tab) 1 Tablets By Mouth 2 times a day for 10 Days. Refills: 0. PATIENT EDUCATION INFORMATION: Instructions: Radicular Pain; Hip Pain Follow up: With: Address: When: Zoran Young [address] [place] [address] [employer] (1) In 3 days 08/18/2024 With: Address: When: Rodrick Gunn [address] [facility], [address] [place] [phone] [employer] (1) In 3 days 08/18/2024 DIAGNOSIS: Left hip pain; Low back pain; Lumbar radiculopathy; Osteoarthritis of hip Normal [facility] ED Patient Summaryon 024 ED Patient Summary ED Patient Summary [address] [address] Patient Discharge Instructions Person Information Name: JULIO LOUISE Age: 48 Years Arrival Date: 08/15/2024 11:30:10 Discharge Diagnosis: Left hip pain; Low back pain; Lumbar radiculopathy; Osteoarthritis of hip Primary Care Physician: NONE, XXXX Provider Information Primary Provider: Julio Tapia DO [employer] Lead:Raul Schwarz PA-C The exam and treatment you received in the Emergency Department were for an urgent problem and are not intended as complete care. It is important that you follow up with a doctor, nurse practitioner, or physician???s judicial administrative assistant for ongoing care. If your symptoms become worse or you do not improve as expected and you are unable to reach your usual health care provider, you should return to the Emergency Department. We are available 24 hours a day. JULIO LOUISE has been given the following list of patient education materials, prescriptions and follow-up instructions: Follow-up Instructions: With: Address: When: Zoran Young [address] [place] [address] [employer] (1) In 3 days 08/18/2024 With: Address: When: Rodrick Gunn [address] [facility], [address] [place] [phone] [employer] (1) In 3 days 08/18/2024 In the event that this physician does not participate in your insurance network, please consult with your insurance company to find a nearby participating provider. Patient Education Materials: Radicular Pain; Hip Pain A MESSAGE TO ALL PATIENTS REGARDING OPIOIDS PRESCRIPTION OPIOIDS: WHAT YOU NEED TO KNOW Prescription opioids can be used to help relieve ewbmpwrt-vs-lixvsx pain and are often prescribed following a surgery or injury, or for certain health conditions. These medications can be an important part of the treatment but also come with serious risks. It is important to work with your healthcare provider to make sure you are getting the safest, most effective care. WHAT ARE THE RISKS AND SIDE EFFECTS OF OPIOID USE? Prescription opioids carry serious risks of addiction and overdose, especially with prolonged use. An opioid overdose, often marked by slowed breathing, can cause sudden . The use of prescription opioids can have a number of side effects as well, even when taken as directed: ??? Tolerance???meaning you might need to take more of the medication for the same pain relief ??? Physical dependence???meaning you have symptoms of withdrawal when a medication is stopped ??? Increased sensitivity to pain ??? Constipation ??? Nausea, vomiting, and dry mouth ??? Sleepiness and dizziness ??? Confusion ??? Depression ??? Low levels of testosterone that can result in lower sex drive, energy, and strength ??? Itching and sweating RISKS ARE GREATER WITH: ??? History of drug misuse, substance use disorder, or overdose ??? Mental health conditions (such as depression or anxiety) ??? Sleep apnea ??? Older age (65 years and older) ??? Avoid alcohol while taking prescription opioids. Also, unless specifically advised by your health care provider, medications to avoid include: ??? Benzodiazepines (such as Xanax or Valium) ??? Muscle relaxants (such as Soma or Flexeril) ??? Hypnotics (such as Ambien or Lunesta) ??? Other prescription opioids KNOW YOUR OPTIONS Talk to your health care provider about ways to manage your pain that don???t involve prescription opioids. Some of these options may actually work better and have fewer risks and side effects. Options may include: ??? Pain relievers such as acetaminophen, ibuprofen, and naproxen ??? Some medication that are also used for depression or seizures ??? Physical therapy and exercise ??? Cognitive behavioral therapy, a psychological, goal-directed approach, in which patients learn how to modify physical, behavioral, and emotional triggers of pain and stress. IF YOU ARE PRESCRIBED OPIOIDS FOR PAIN: ??? Never take opioids in greater amounts or more often than prescribed. ??? Follow up with your primary health care provider. o Work together to create a plan on how to manage your pain. o Talk about ways to help manage your pain that don???t involve prescription opioids. o Talk about any and all concerns and side effects. ??? Help prevent misuse and abuse o Never sell or share prescription opioids. o Never use another person???s prescription opioids. ??? Store prescription opioids in a secure place and out of reach of others (this may include visitors, children, friends, and family). ??? Safely dispose of unused prescription opioids: Find your community drug take-back program or your pharmacy mail-back program, or flush them down the toilet, following guidance from the Food and Drug Administration (www.fda.gov/Drugs/Resou rcesForYou). ??? Visit (more content not included)... Normal [facility] XR Hip 2-3 Views Left + Pelv lori 08-15-2024 XR Hip 2-3 Views Left + Pelvis Exam Date/Time: 08/15/2024 12:20 EST Reason for Exam: Pain, Non Traumatic Report IMPRESSION: NO ACUTE OSSEOUS ABNORMALITY. EXAMINATION: XR Hip 2-3 Views Left + Pelvis HISTORY: Hip pain COMPARISONS: None available TECHNIQUE: Frontal view of the pelvis and frontal and lateral views of the hip. FINDINGS: No acute proximal femur fracture. No hip dislocation. Mild degenerative changes of both hips. Degenerative changes of the lower lumbar spine. Soft tissues are within normal limits. Ordering Provider: Julio Tapia FINAL REPORT Dictated: 08/15/2024 12:23 pm Chi Ferris DO Signed (Electronic Signature): 08/15/2024 12:23 pm Signed by: Chi Ferris DO Transcribed by: KEMAR Technologist: AMAURI Technical Comments Radiation Dose: Ka,r in mGy = . DAP = . Normal [facility] - Hematology and Cell countson 08-01-2024 HbA1c (Bld) [Mass fraction] 8.9 % [facility] No Panel Informationon 08-01 [facility] MRI ABDOMEN WO W CONon 07-0 MRI ABDOMEN WO W CON CLINICAL HISTORY: Disorder of pancreas. As per patient, pancreatitis. EXAMINATION: Unenhanced, enhanced MRI of the abdomen: 03/12/2022. COMPARISON: Enhanced CT scan of the abdomen and pelvis: 02/27/2022. TECHNIQUE: Multiplanar, multisequence images through upper abdomen without and following administration of intravenous contrast were obtained. FINDINGS:The visualized lung bases, cardial chambers seem normal. There is a vague masslike density in the body of the pancreas which demonstrates increased signal slightly on the single shot fast spin echo images and measures 2.7 x 3.4 cm, demonstrates low signal on T1-weighted images. The pancreas proximal to it is slightly atrophic. There is mildly dilated pancreatic duct proximal to it. The pancreas distal to it including head and neck are of normal appearance as well as the uncinate process is normal. On the postcontrast images there is no significant enhancement of this lesion. There is some induration of fat surrounding the pancreas. The spleen, adrenal glands, gallbladder, kidneys appear normal. The liver demonstrates signal characteristics compatible with fatty infiltration. The abdominal aorta has normal caliber. There is no definite retroperitoneal adenopathy. The visualized lung bases, cardiac chambers seem normal. IMPRESSION: 1. There is a vague masslike density in the body of the pancreas which results in mild atrophy of the proximal portion of the pancreas with diffuse induration of pancreas around this mass as well as along the distal body and tail probably superimposed pancreatitis. Nonetheless, this mass is concerning and further evaluation with endoscopic ultrasound with possible biopsy might be of value. Vague density could be seen in this area on the CT examination as well with a punctate calcification. The lesion is concerning for possible malignancy. 2. Fibrofatty changes of the liver. 3. The remaining study is grossly within normal limits. Electronically authenticated by: ALLYSON RODRIGEZ Date: 2022-03-14 13:38 Normal [facility] AMYLASEon 02-27-2022 Amylase [Catalytic activity/Vol] 37 U/L Normal 25-115 [facility] Comment on above: Performed By: #### L IVER, BMP, LAURI, LIPA #### [facility] [address] [place] [address] Dr. Desirae Prabhakar CBC AUTO DIFFon 02-27-2022 BASO # 0.1 103/ul Normal 0.0-0.1 [facility] Comment on above: Performed By: #### C BC #### [facility] [address] [place] [address] Dr. Desirae Prabhakar Basophils/100 WBC (Bld) 0.4 % Normal 0.2-2.0 [facility] Comment on above: Performed By: #### C BC #### [facility] [address] [place] [address] Dr. Desirae Prabhakar EO # 0.6 103/ul Normal 0.0-0.7 [facility] Comment on above: Performed By: #### C BC #### [facility] [address] [place] [address] Dr. Desirae Prabhakar Eosinophils/100 WBC (Bld) 5.4 % Normal 0.9-7.0 [facility] Comment on above: Performed By: #### C BC #### [facility] [address] [place] [address] Dr. Desirae Prabhakar Erythrocyte distribution width (RBC) [Ratio] 13.6 % Normal 11.0-15.0 [facility] Comment on above: Performed By: #### C BC #### [facility] [address] [place] [address] Dr. Desirae Prabhakar Hematocrit (Bld) [Volume fraction] 44.6 % Normal 42.0-54.0 [facility] Comment on above: Performed By: #### C BC #### [facility] [address] [place] [address] Dr. Desirae Prabhakar Hemoglobin (Bld) [Mass/Vol] 14.5 g/dL Normal 14.0-18.0 [facility] Comment on above: Performed By: #### C BC #### [facility] [address] [place] [address] Dr. Desirae Prabhakar IG # 0.05 10e3/ul Critically high 0.00-0.03 [facility] Comment on above: Performed By: #### C BC #### [facility] [address] [place] [address] Dr. Desirae Prabhakar IG % 0.4 % Normal 0.0-0.5 [facility] Comment on above: Performed By: #### C BC #### [facility] [address] [place] [address] Dr. Desirae Prabhakar LYMPH # 2.3 103/ul Normal 1.2-3.8 [facility] Comment on above: Performed By: #### C BC #### [facility] [address] [place] [address] Dr. Desirae Prabhakar Lymphocytes/100 WBC (Bld) 19.1 % Critically low 20.5-60.0 [facility] Comment on above: Performed By: #### C BC #### [facility] [address] [place] [address] Dr. Desirae Prabhakar MANUAL DIFF REQ NO Normal [facility] Comment on above: Performed By: #### C BC #### [facility] [address] [place] [address] Dr. Desirae Prabhakar MCH (RBC) [Entitic mass] 26.0 pg Normal 25.9-34.0 [facility] Comment on above: Performed By: #### C BC #### [facility] [address] [place] [address] Dr. Desirae Prabhakar MCHC (RBC) [Mass/Vol] 32.5 g/dL Normal 29.9-35.2 [facility] Comment on above: Performed By: #### C BC #### [facility] [address] [place] [address] Dr. Desirae Prabhakar MCV (RBC) [Entitic vol] 80.1 fL Normal 80.0-94.0 [facility] Comment on above: Performed By: #### C BC #### [facility] [address] [place] [address] Dr. Desirae Prabhakar MONO # 0.6 103/ul Normal 0.3-0.8 [facility] Comment on above: Performed By: #### C BC #### [facility] [address] [place] [address] [address] Desirae Prabhakar Monocytes/100 WBC (Bld) 5.4 % Normal 1.7-12.0 [facility] Comment on above: Performed By: #### C BC #### [facility] [address] [place] [address] [address] Desirae Prabhakar NEUT # 8.2 103/ul Critically high 1.4-6.5 [facility] Comment on above: Performed By: #### C BC #### [facility] [address] [place] [address] [address] Desirae Prabhakar Neutrophils/100 WBC (Bld) 69.3 % Normal 43.0-75.0 [facility] Comment on above: Performed By: #### C BC #### [facility] [address] [place] [address] Dr. Desirae Prabhakar Platelet mean volume (Bld) [Entitic vol] 8.6 fL Critically low 9.5-13.5 [facility] Comment on above: Performed By: #### C BC #### [facility] [address] [place] [address] Dr. Desirae Prabhakar PLT 295 103/ul Normal 150-450 [facility] Comment on above: Performed By: #### C BC #### [facility] [address] [place] [address] Dr. Desirae Prabhakar RBC 5.57 106/ul Normal 4.70-6.10 [facility] Comment on above: Performed By: #### C BC #### [facility] [address] [place] [address] Dr. Desirae Prabhakar WBC 11.9 103/ul Critically high 4.0-11.0 [facility] Comment on above: Performed By: #### C BC #### [facility] [address] [place] [address] ABD/PELV W CONon 02-28-[address] ABD/PELV W CON TECHNIQUE: CT abdome n and pelvis. Helically acquired axial images of the abdomen and pelvis from the diaphragm to the iliac crest and the iliac crest to the symphysis pubis. Sagittal and coronal multiplanar reconstructions. . HISTORY: Left lower quadrant pain COMPARISON: CT abdomen/pelvis dated 08/18/2018 FINDINGS: The lung bases are clear. The heart size is normal. Mild diffuse low-attenuation of the liver is seen, which is a nonspecific finding, but which can be seen with mild diffuse fatty infiltration. The gallbladder, spleen and bilateral adrenal glands appear unremarkable. Peripancreatic mesenteric fat stranding is seen, most prominent surrounding the pancreatic body and tail where small peripancreatic free fluid is also seen, suggestive of acute pancreatitis. Stable 5 mm calcification is seen in the pancreatic body. Ill-defined hypoattenuation is seen in the pancreatic body near the tail, which measures approximately 1 cm, and which appears new since prior examination. A pancreatic protocol MRI with and without contrast is recommended for further evaluation. Bilateral kidneys demonstrate normal size, morphology and contrast enhancement. There is no evidence for hydronephrosis bilaterally. The stomach and duodenum appear unremarkable. Nonobstructive bowel pattern is seen. Normal-appearing appendix is visualized. Extensive colonic diverticula are seen without significant associated inflammatory changes. The urinary bladder appears unremarkable. No significant free fluid or abnormal fluid collection is seen in the abdomen and pelvis. The vascular structures demonstrate normal caliber and contrast enhancement. Small fat-containing bilateral inguinal hernia is seen. No acute osseous abnormality is seen. IMPRESSION: Peripancreatic mesenteric fat stranding and tiny free fluid is seen, most prominent surrounding the pancreatic body and tail, suggestive of acute pancreatitis. No peripancreatic abnormal fluid collection is seen. Approximately 1 cm ill-defined low density seen in the pancreatic body, which appears new since prior examination. Pancreatic MRI with and without contrast recommended for further evaluation. Likely mild diffuse fatty infiltration of the liver. Diffuse colonic diverticulosis without CT evidence for diverticulitis. Small fat-containing bilateral hernia. There is no evidence for bowel obstruction. Electronically authenticated by: ERICA CLAYTON Date: 2022-02-27 20:06 Normal [facility] Covid-19 PCR (CVDTB)on 02-06 SARS-CoV-2 (COVID-19) RNA CRISTHIAN+probe Ql (Unsp spec) Not detected Normal NOT DETECTED [facility] Comment on above: Result Comment: When diagnostic testing is negative, the possibility of a false negative should be considered in the context of a patient's recent exposures and the presence of clinical signs and symptoms consistent with SARS-CoV-2. This test is not yet approved or cleared by the [place] FDA. When there are no FDA-approved or cleared tests available, and other criteria are met, FDA can make tests available under an emergency access mechanism called an Emergency Use Authorization (EUA). The EUA for this test is supported by the [employer] of Health and Human Service's declaration that circumstances exist to justify the emergency use of in vitro diagnostics for the detection and/or diagnosis of the virus that causes COVID-19. This EUA will remain in effect for the duration of the COVID-19 declaration justifying emergency of IVDs, unless it is terminated or revoked by the FDA (after which the test may no longer be used). Performed By: #### C VDTBH #### [facility] [address] [place] [address] Dr. Desirae Prabhakar LIPASEon 02-27-2022 Lipase [Catalytic activity/Vol] 363.0 U/L Normal 73.0-393.0 [facility] Comment on above: Performed By: #### L CARLENE BMP, LAURI, LIPA #### [facility] [address] [place] [address] Dr. Desirae Prabhakar LIVER PROFILEon 02-27-2022 Albumin [Mass/Vol] 3.1 g/dL Critically low 3.4-5.0 [facility] Comment on above: Performed By: #### L IVER BMP, LAURI, LIPA #### [facility] [address] [place] [address] Dr. Desirae Prabhakar Albumin/Globulin [Mass ratio] 0.6 {ratio} Normal [facility] Comment on above: Performed By: #### L IVER BMP, LAURI, LIPA #### [facility] [address] [place] [address] Dr. Desirae Prabhakar ALP [Catalytic activity/Vol] 89 U/L Normal 46-116 [facility] Comment on above: Performed By: #### L IVER, BMP, LAURI, LIPA #### [facility] [address] [place] [address] Dr. Desirae Prabhakar ALT [Catalytic activity/Vol] 24 U/L Normal 16-63 [facility] Comment on above: Performed By: #### L IVER, BMP, LAURI, LIPA #### [facility] [address] [place] [address] Dr. Desirae Prabhakar AST [Catalytic activity/Vol] 15 U/L Normal 15-37 [facility] Comment on above: Performed By: #### L IVER, BMP, LAURI, LIPA #### [facility] [address] [place] [address] Dr. Desirae Prabhakar BILI, CONJUGATED 0.1 mg/dL Normal 0.0-0.2 [facility] Comment on above: Performed By: #### L IVER, BMP, LAURI, LIPA #### [facility] [address] [place] [address] Dr. Desirae Prabhakar Bilirubin [Mass/Vol] 0.4 mg/dL Normal 0.2-1.0 [facility] Comment on above: Performed By: #### L IVER, BMP, LAURI, LIPA #### [facility] [address] [place] [address] Dr. Desirae Prabhakar Globulin (S) [Mass/Vol] 5.4 g/dL Normal [facility] Comment on above: Performed By: #### L IVER, BMP, LAURI, LIPA #### [facility] [address] [place] [address] Dr. Desirae Prabhakar Protein [Mass/Vol] 8.5 g/dL Critically high 6.4-8.2 [facility] Comment on above: Performed By: #### L IVER, BMP, LAURI, LIPA #### [facility] [address] [place] [address] Dr. Desirae Prabhakar PROF CHEM 8 (BAS METB)on Anion gap [Moles/Vol] 14.2 mmol/L Normal [facility] Comment on above: Performed By: #### L IVER, BMP, LAURI, LIPA #### [facility] [address] [place] [address] Dr. Desirae Prabhakar Calcium [Mass/Vol] 9.2 mg/dL Normal 8.5-10.1 [facility] Comment on above: Performed By: #### L IVER, BMP, LAURI, LIPA #### [facility] [address] [address] [address] Desirae Prabhakar Chloride [Moles/Vol] 98 mmol/L Normal 98-107 [facility] Comment on above: Performed By: #### L IVER, BMP, LAURI, LIPA #### [facility] [address] [address] [address] Desirae Prabhakar CO2 [Moles/Vol] 25.6 mmol/L Normal 21.0-32.0 [facility] Comment on above: Performed By: #### L IVER, BMP, LAURI, LIPA #### [facility] [address] [address] [address] Desirae Prabhakar Creatinine [Mass/Vol] 0.86 mg/dL Normal 0.70-1.30 [facility] Comment on above: Performed By: #### L IVER, BMP, LAURI, LIPA #### [facility] [address] [address] [address] Desirae Prabhakar EGFR-AF CZECH >60 Normal >=60 [facility] Comment on above: Performed By: #### L IVER, BMP, LAURI, LIPA #### [facility] [address] [address] [address] Desirae Prabhakar EGFR-NON AF CZECH >60 Normal >=60 [facility] Comment on above: Performed By: #### L IVER, BMP, LAURI, LIPA #### [facility] [address] [address] [address] Desirae Prabhakar Glucose [Mass/Vol] 195 mg/dL Critically high 74-106 [facility] Comment on above: Performed By: #### L IVER, BMP, LAURI, LIPA #### [facility] [address] [address] [address] Desirae Prabhakar Potassium [Moles/Vol] 3.8 mmol/L Normal 3.5-5.1 [facility] Comment on above: Performed By: #### L IVER, BMP, LAURI, LIPA #### [facility] [address] [place] [address] Dr. Desirae Prabhakar Sodium [Moles/Vol] 134 mmol/L Critically low 136-145 Th e [facility] Comment on above: Performed By: #### L IVER, BMP, LAURI, LIPA #### [facility] [address] [place] [address] Dr. Desirae Prabhakar Urea nitrogen [Mass/Vol] 14.0 mg/dL Normal 7.0-18.0 [facility] Comment on above: Performed By: #### L IVER, BMP, LAURI, LIPA #### [facility] [address] [place] [address] Dr. Desirae Prabhakar Urea nitrogen/Creatinine [Mass ratio] 16.3 mg/mg Normal [facility] Comment on above: Performed By: #### L IVER, BMP, LAURI, LIPA #### [facility] [address] [place] [address] Dr. Deisrae Prabhakar AMYLASEon 01-12-2022 Amylase [Catalytic activity/Vol] 84 U/L Normal 25-115 [facility] Comment on above: Performed By: #### C BC #### [facility] [address] [place] [address] Dr. Desirae Prabhakar CBC AUTO DIFFon 01-12-2022 BASO # 0.1 103/ul Normal 0.0-0.1 [facility] Comment on above: Performed By: #### C BC #### [facility] [address] [place] [address] Dr. Desirae Prabhakar Basophils/100 WBC (Bld) 0.4 % Normal 0.2-2.0 [facility] Comment on above: Performed By: #### C BC #### [facility] [address] [place] [address] Dr. Desirae Prabhakar EO # 0.7 103/ul Normal 0.0-0.7 [facility] Comment on above: Performed By: #### C BC #### [facility] [address] [address] [address] Desirae Prabhakar Eosinophils/100 WBC (Bld) 4.1 % Normal 0.9-7.0 [facility] Comment on above: Performed By: #### C BC #### [facility] [address] [place] [address] Dr. Desirae Prabhakar Erythrocyte distribution width (RBC) [Ratio] 13.8 % Normal 11.0-15.0 [facility] Comment on above: Performed By: #### C BC #### [facility] [address] [place] [address] Dr. Desirae Prabhakar Hematocrit (Bld) [Volume fraction] 46.2 % Normal 42.0-54.0 [facility] Comment on above: Performed By: #### C BC #### [facility] [address] [place] [address] Dr. Desirae Prabhakar Hemoglobin (Bld) [Mass/Vol] 15.5 g/dL Normal 14.0-18.0 [facility] Comment on above: Performed By: #### C BC #### [facility] [address] [place] [address] Dr. Desirae Prabhakar IG # 0.07 10e3/ul Critically high 0.00-0.03 [facility] Comment on above: Performed By: #### C BC #### [facility] [address] [place] [address] Dr. Desirae Prabhakar IG % 0.4 % Normal 0.0-0.5 [facility] Comment on above: Performed By: #### C BC #### [facility] [address] [place] [address] Dr. Desirae Prabhakar LYMPH # 2.3 103/ul Normal 1.2-3.8 [facility] Comment on above: Performed By: #### C BC #### [facility] [address] [place] [address] Dr. Desirae Prabhakar Lymphocytes/100 WBC (Bld) 13.4 % Critically low 20.5-60.0 [facility] Comment on above: Performed By: #### C BC #### [facility] [address] [place] [address] Dr. Desirae Prabhakar MANUAL DIFF REQ NO Normal [facility] Comment on above: Performed By: #### C BC #### [facility] [address] [place] [address] Dr. Desirae Prabhakar MCH (RBC) [Entitic mass] 27.1 pg Normal 25.9-34.0 [facility] Comment on above: Performed By: #### C BC #### [facility] [address] [place] [address] Dr. Desirae Prabhakar MCHC (RBC) [Mass/Vol] 33.5 g/dL Normal 29.9-35.2 [facility] Comment on above: Performed By: #### C BC #### [facility] [address] [place] [address] Dr. Desirae Prabhakar MCV (RBC) [Entitic vol] 80.9 fL Normal 80.0-94.0 [facility] Comment on above: Performed By: #### C BC #### [facility] [address] [place] [address] Dr. Desirae Prabhakar MONO # 0.7 103/ul Normal 0.3-0.8 [facility] Comment on above: Performed By: #### C BC #### [facility] [address] [place] [address] Dr. Desirae Prabhakar Monocytes/100 WBC (Bld) 4.4 % Normal 1.7-12.0 [facility] Comment on above: Performed By: #### C BC #### [facility] [address] [place] [address] Dr. Desirae Prabhakar NEUT # 13.0 103/ul Critically high 1.4-6.5 [facility] Comment on above: Performed By: #### C BC #### [facility] [address] [place] [address] Dr. Desirae Prabhakar Neutrophils/100 WBC (Bld) 77.3 % Critically high 43.0-75.0 [facility] Comment on above: Performed By: #### C BC #### [facility] [address] [place] [address] Dr. Desirae Prabhakar Platelet mean volume (Bld) [Entitic vol] 8.9 fL Critically low 9.5-13.5 [facility] Comment on above: Performed By: #### C BC #### [facility] [address] [place] [address] Dr. Desirae Prabhakar PLT 321 103/ul Normal 150-450 [facility] Comment on above: Performed By: #### C BC #### [facility] [address] [place] [address] Dr. Desirae Prabhakar RBC 5.71 106/ul Normal 4.70-6.10 [facility] Comment on above: Performed By: #### C BC #### [facility] [address] [place] [address] Dr. Desirae Prabhakar WBC 16.8 103/ul Critically high 4.0-11.0 [facility] Comment on above: Performed By: #### C BC #### [facility] [address] [place] [address] Dr. Desirae Prabhakar LIPASEon 01-12-2022 Lipase [Catalytic activity/Vol] 518.0 U/L Critically high 73.0-393.0 [facility] Comment on above: Performed By: #### C RASTA MARTÍNEZ AMY #### [facility] [address] [place] [address] Dr. Desirae Prabhakar PROF 14(COMP METB)on 022 Albumin [Mass/Vol] 3.1 g/dL Critically low 3.4-5.0 [facility] Comment on above: Performed By: #### C BC #### [facility] [address] [place] [address] Dr. Desirae Prabhakar Albumin/Globulin [Mass ratio] 0.7 {ratio} Normal [facility] Comment on above: Performed By: #### C BC #### [facility] [address] [place] [address] Dr. Desirae Prabhakar ALP [Catalytic activity/Vol] 104 U/L Normal 46-116 [facility] Comment on above: Performed By: #### C BC #### [facility] [address] [address] [address] Desirae Prabhakar ALT [Catalytic activity/Vol] 33 U/L Normal 16-63 [facility] Comment on above: Performed By: #### C BC #### [facility] [address] [place] [address] Dr. Desirae Prabhakar Anion gap [Moles/Vol] 10.1 mmol/L Normal [facility] Comment on above: Performed By: #### C BC #### [facility] [address] [address] [address] Desirae Prabhakar AST [Catalytic activity/Vol] 14 U/L Critically low 15-37 [facility] Comment on above: Performed By: #### C BC #### [facility] [address] [place] [address] Dr. Desirae Prabhakar Bilirubin [Mass/Vol] 0.5 mg/dL Normal 0.2-1.0 [facility] Comment on above: Performed By: #### C BC #### [facility] [address] [place] [address] Dr. Desirae Prabhakar Calcium [Mass/Vol] 8.3 mg/dL Critically low 8.5-10.[address] [facility] Comment on above: Performed By: #### C BC #### [facility] [address] [place] [address] Dr. Desirae Prabhakar Chloride [Moles/Vol] 95 mmol/L Critically low 98-107 [facility] Comment on above: Performed By: #### C BC #### [facility] [address] [place] [address] Dr. Desirae Prabhakar CO2 [Moles/Vol] 25.9 mmol/L Normal 21.0-32.0 [facility] Comment on above: Performed By: #### C BC #### [facility] [address] [place] [address] Dr. Desirae Prabhakar Creatinine [Mass/Vol] 0.68 mg/dL Critically low 0.70-1.30 [facility] Comment on above: Performed By: #### C BC #### [facility] [address] [place] [address] Dr. Desirae Prabhakar EGFR-AF CZECH >60 Normal >=60 [facility] Comment on above: Performed By: #### C BC #### [facility] [address] [address] [address] Desirae Prabhakar EGFR-NON AF CZECH >60 Normal >=60 [facility] Comment on above: Performed By: #### C BC #### [facility] [address] [address] [address] Desirae Prabhakar Globulin (S) [Mass/Vol] 4.6 g/dL Normal [facility] Comment on above: Performed By: #### C BC #### [facility] [address] [address] [address] Desirae Prabhakar Glucose [Mass/Vol] 212 mg/dL Critically high 74-106 [facility] Comment on above: Performed By: #### C BC #### [facility] [address] [address] [address] Desirae Prabhakar Potassium [Moles/Vol] 4.0 mmol/L Normal 3.5-5.1 [facility] Comment on above: Performed By: #### C BC #### [facility] [address] [place] [address] Dr. Desirae Prabhakar Protein [Mass/Vol] 7.7 g/dL Normal 6.4-8.[address] [facility] Comment on above: Performed By: #### C BC #### [facility] [address] [address] [address] Desirae Prabhakar Sodium [Moles/Vol] 127 mmol/L Critically low 136-[address] [facility] Comment on above: Performed By: #### C BC #### [facility] [address] [address] [address] Desirae Prabhakar Urea nitrogen [Mass/Vol] 12.0 mg/dL Normal 7.0-18.0 [facility] Comment on above: Performed By: #### C BC #### [facility] [address] [address] [address] Desirae Prabhakar Urea nitrogen/Creatinine [Mass ratio] 17.6 mg/mg Normal [facility] Comment on above: Performed By: #### C BC #### [facility] [address] [id number] [address] Desirae Prabhakar Q - CULTURE,URINE,ROUTINEon 01-01-2022 CULTURE, URINE, ROUTINE SEE NOTE Normal [facility] Comment on above: Order Comment: [facility] performed at: [facility], [facility], [address] [facility], [address] [place], [address], [employer]: Jeremy May MD [facility] Collection Date/Time: [id number] [facility] Results Received Date/Time: [facility] Reported Date/Time: Result Comment: CULT URE, URINE, ROUTINE Micro Number: [id number] Test Status: Final Specimen Source: Urine Specimen Quality: Adequate Result: Mixed genital lucio isolated. These superficial bacteria are not indicative of a urinary tract infection. No further organism identification is warranted on this specimen. If clinically indicated, recollect clean-catch, mid-stream urine and transfer immediately to Urine Culture Transport Tube. Performed By: #### [id number] #### [facility] Default [address] [place] [id number] ACID FAST SMEAR AND CXon Acid Fast Culture Negative Normal [facility] Comment on above: Result Comment: No a rob fast bacilli isolated after 6 weeks. Performed By: #### C VDTBH #### [facility] [address] [place], [place] [id number] Dr. Desirae Prabhakar Acid Fast Smear Negative Normal [facility] Comment on above: Performed By: #### C VDTBH #### [facility] [address] [place], [place] [id number] Dr. Desirae Prabhakar AFB Specimen Processing Tissue Grinding Normal [facility] Comment on above: Performed By: #### C VDTBH #### [facility] [address] [place], [place] [id number] Dr. Desirae Prabhakar FUNGAL CULTUREon 08-30-2021 Fungus (Mycology) Culture Final report Normal [facility] Comment on above: Performed By: #### C BC #### [facility] [address] [place] [address] Dr. Desirae Prabhakar Fungus Stain Final report Normal [facility] Comment on above: Performed By: #### C BC #### [facility] [address] [place] [address] Dr. Desirae Prabhakar Result 1 Comment Normal [facility] Comment on above: Result Comment: FREDDIE/ Calcofluor preparation: no fungus observed. Performed By: #### C BC #### [facility] [address] [place] [address] Dr. Desirae Prabhakar Result Comment: No y east or mold isolated after 4 weeks. CBC AUTO DIFFon 07-31-2021 BASO # 0.1 103/ul Normal 0.0-0.1 [facility] Comment on above: Performed By: #### C BC #### [facility] [address] [place] [address] Dr. Desirae Prabhakar Basophils/100 WBC (Bld) 0.4 % Normal 0.2-2.0 [facility] Comment on above: Performed By: #### C BC #### [facility] [address] [place] [address] Dr. Desirae Prabhakar EO # 0.4 103/ul Normal 0.0-0.7 [facility] Comment on above: Performed By: #### C BC #### [facility] [address] [place] [address] Dr. Desirae Prabhakar Eosinophils/100 WBC (Bld) 3.1 % Normal 0.9-7.0 [facility] Comment on above: Performed By: #### C BC #### [facility] [address] [place] [address] Dr. Desirae Prabhakar Erythrocyte distribution width (RBC) [Ratio] 13.5 % Normal 11.0-15.0 [facility] Comment on above: Performed By: #### C BC #### [facility] [address] [place] [address] Dr. Desirae Prabhakar Hematocrit (Bld) [Volume fraction] 39.2 % Critically low 42.0-54.0 [facility] Comment on above: Performed By: #### C BC #### [facility] [address] [address] [address] Desirae Prabhakar Hemoglobin (Bld) [Mass/Vol] 12.7 g/dL Critically low 14.0-18.0 [facility] Comment on above: Performed By: #### C BC #### [facility] [address] [address] [address] Desirae Prabhakar IG # 0.07 10e3/ul Critically high 0.00-0.03 [facility] Comment on above: Performed By: #### C BC #### [facility] [address] [place] [address] Dr. Desirae Prabhakar IG % 0.5 % Normal 0.0-0.5 [facility] Comment on above: Performed By: #### C BC #### [facility] [address] [place] [address] Dr. Dseirae Prabhakar LYMPH # 3.2 103/ul Normal 1.2-3.8 [facility] Comment on above: Performed By: #### C BC #### [facility] [address] [place] [address] Dr. Desirae Prabhakar Lymphocytes/100 WBC (Bld) 24.3 % Normal 20.5-60.0 [facility] Comment on above: Performed By: #### C BC #### [facility] [address] [place] [address] Dr. Desirae Prabhakar MANUAL DIFF REQ NO Normal [facility] Comment on above: Performed By: #### C BC #### [facility] [address] [place] [address] Dr. Desirae Prabhakar MCH (RBC) [Entitic mass] 26.6 pg Normal 25.9-34.0 [facility] Comment on above: Performed By: #### C BC #### [facility] [address] [place] [address] Dr. Desirae Prabhakar MCHC (RBC) [Mass/Vol] 32.4 g/dL Normal 29.9-35.2 [facility] Comment on above: Performed By: #### C BC #### [facility] [address] [place] [address] Dr. Desirae Prabhakar MCV (RBC) [Entitic vol] 82.2 fL Normal 80.0-94.0 [facility] Comment on above: Performed By: #### C BC #### [facility] [address] [place] [address] Dr. Desirae Prabhakar MONO # 0.7 103/ul Normal 0.3-0.8 [facility] Comment on above: Performed By: #### C BC #### [facility] [address] [place] [address] Dr. Desirae Prabhakar Monocytes/100 WBC (Bld) 5.3 % Normal 1.7-12.0 [facility] Comment on above: Performed By: #### C BC #### [facility] [address] [place] [address] Dr. Desirae Prabhakar NEUT # 8.8 103/ul Critically high 1.4-6.[address] [facility] Comment on above: Performed By: #### C BC #### [facility] [address] [place] [address] Dr. Desirae Prabhakar Neutrophils/100 WBC (Bld) 66.4 % Normal 43.0-75.0 [facility] Comment on above: Performed By: #### C BC #### [facility] [address] [place] [address] Dr. Desirae Prabhakar Platelet mean volume (Bld) [Entitic vol] 8.9 fL Critically low 9.5-13.5 [facility] Comment on above: Performed By: #### C BC #### [facility] [address] [place] [address] Dr. Desirae Prabhakar PLT 383 103/ul Normal 150-450 [facility] Comment on above: Performed By: #### C BC #### [facility] [address] [place] [address] Dr. Desirae Prabhakar RBC 4.77 106/ul Normal 4.70-6.10 [facility] Comment on above: Performed By: #### C BC #### [facility] [address] [place] [address] Dr. Desirae Prabhakar WBC 13.3 103/ul Critically high 4.0-11.0 [facility] Comment on above: Performed By: #### C BC #### [facility] [address] [place] [address] Dr. Desirae Prabhakar POINT OF CARE GLUCOSEon 07-09 Glucose [Mass/Vol] 169 mg/dL Critically high 74-106 [facility] Comment on above: Performed By: #### C BC #### [facility] [address] [place] [address] Dr. Desirae Prabhakar Glucose [Mass/Vol] 143 mg/dL Critically high 74-106 [facility] Comment on above: Performed By: #### P OCGLUC #### [facility] [address] [place] [address] Dr. Desirae Prabhakar CBC AUTO DIFFon 07-30-2021 BASO # 0.1 103/ul Normal 0.0-0.1 [facility] Comment on above: Performed By: #### C VDTBH #### [facility] [address] [place] [address] Dr. Desirae Prabhakar Basophils/100 WBC (Bld) 0.4 % Normal 0.2-2.0 [facility] Comment on above: Performed By: #### C VDTBH #### [facility] [address] [place] [address] Dr. Desirae Prabhakar EO # 0.4 103/ul Normal 0.0-0.7 [facility] Comment on above: Performed By: #### C VDTBH #### [facility] [address] [place] [address] Dr. Desirae Prabhakar Eosinophils/100 WBC (Bld) 2.9 % Normal 0.9-7.0 [facility] Comment on above: Performed By: #### C VDTBH #### [facility] [address] [place] [address] Dr. Desirae Prabhakar Erythrocyte distribution width (RBC) [Ratio] 13.3 % Normal 11.0-15.0 [facility] Comment on above: Performed By: #### C VDTBH #### [facility] [address] [place] [address] Dr. Desirae Prabhakar Hematocrit (Bld) [Volume fraction] 39.6 % Critically low 42.0-54.0 [facility] Comment on above: Performed By: #### C VDTBH #### [facility] [address] [place] [address] Dr. Desirae Prabhakar Hemoglobin (Bld) [Mass/Vol] 12.9 g/dL Critically low 14.0-18.0 [facility] Comment on above: Performed By: #### C VDTBH #### [facility] [address] [place] [address] Dr. Desirae Prabhakar IG # 0.07 10e3/ul Critically high 0.00-0.03 [facility] Comment on above: Performed By: #### C VDTBH #### [facility] [address] [place] [address] Dr. Desirae Prabhakar IG % 0.5 % Normal 0.0-0.5 [facility] Comment on above: Performed By: #### C VDTBH #### [facility] [address] [place] [address] Dr. Desirae Prabhakar LYMPH # 2.6 103/ul Normal 1.2-3.8 [facility] Comment on above: Performed By: #### C VDTBH #### [facility] [address] [place] [address] Dr. Desirae Prabhakar Lymphocytes/100 WBC (Bld) 19.4 % Critically low 20.5-60.0 [facility] [facility] Comment on above: Performed By: #### C VDTBH #### [facility] [address] [place] [address] Dr. Desirae Prabhakar MANUAL DIFF REQ NO Normal [facility] Comment on above: Performed By: #### C VDTBH #### [facility] [address] [place] [address] Dr. Desirae Prabhakar MCH (RBC) [Entitic mass] 26.9 pg Normal 25.9-34.0 [facility] Comment on above: Performed By: #### C VDTBH #### [facility] [address] [place] [address] Dr. Desirae Prabhaakr MCHC (RBC) [Mass/Vol] 32.6 g/dL Normal 29.9-35.2 [facility] Comment on above: Performed By: #### C VDTBH #### [facility] [address] [place] [address] Dr. Desirae Prabhakar MCV (RBC) [Entitic vol] 82.7 fL Normal 80.0-94.0 [facility] Comment on above: Performed By: #### C VDTBH #### [facility] [address] [place] [address] Dr. Desirae Prabhakar MONO # 0.6 103/ul Normal 0.3-0.8 [facility] Comment on above: Performed By: #### C VDTBH #### [facility] [address] [place] [address] Dr. Desirae Prabhakar Monocytes/100 WBC (Bld) 4.7 % Normal 1.7-12.0 [facility] Comment on above: Performed By: #### C VDTBH #### [facility] [address] [place] [address] Dr. Desirae Prabhakar NEUT # 9.6 103/ul Critically high 1.4-6.5 [facility] Comment on above: Performed By: #### C VDTBH #### [facility] [address] [place] [address] Dr. Desirae Prabhakar Neutrophils/100 WBC (Bld) 72.1 % Normal 43.0-75.0 [facility] Comment on above: Performed By: #### C VDTBH #### [facility] [address] [place] [address] Dr. Desirae Prabhakar Platelet mean volume (Bld) [Entitic vol] 8.8 fL Critically low 9.5-13.5 [facility] Comment on above: Performed By: #### C VDTBH #### [facility] [address] [place] [address] Dr. Desirae Prabhakar PLT 402 103/ul Normal 150-450 [facility] Comment on above: Performed By: #### C VDTBH #### [facility] [address] [address] [address] Desirae Prabhakar RBC 4.79 106/ul Normal 4.70-6.10 [facility] Comment on above: Performed By: #### C VDTBH #### [facility] [address] [address] [address] Desirae Prabhakar WBC 13.3 103/ul Critically high 4.0-11.0 [facility] Comment on above: Performed By: #### C VDTBH #### [facility] [address] [address] [address] Desirae Prabhakar CULTURE ANAEROBICon 07-30-20 21 CULTURE ANAEROBIC Culture Observations : NO GROWTH OF ANAEROBES AT 72 HOURS. Normal [facility] Comment on above: Performed By: #### C BC #### [facility] [address] [place] [address] Dr. Desirae Prabhakar CULTURE OTHERon 07-30-2021 CULTURE OTHER Culture Observations : NO GROWTH AT 72 HRS Normal [facility] Comment on above: Performed By: #### C BC #### [facility] [address] [place] [address] Dr. Desirae Prabhakar Covid-19 PCR ([facility])on 07-09 SARS-CoV-2 (COVID-19) RNA CRISTHIAN+probe Ql (Unsp spec) Not detected Normal NOT DETECTED [facility] Comment on above: Result Comment: This test is not yet approved or cleared by the [place] FDA. When there are no FDA-approved or cleared tests available, and other criteria are met, FDA can make tests available under an emergency access mechanism called an Emergency Use Authorization (EUA). The EUA for this test is supported by the [place] of Health and Human Service's (HHS's) declaration that circumstances exist to justify the emergency use of in vitro diagnostics for the detection and/or diagnosis of the virus that causes COVID-19. This EUA will remain in effect (meaning this test can be used) for the duration of the COVID-19 declaration justifying emergency of IVDs, unless it is terminated or revoked by FDA (after which the test may no longer be used). When diagnostic testing is negative, the possibility of a false negative should be considered in the context of a patient's recent exposures and the presence of clinical signs and symptoms consistent with SARS-CoV-2. Performed By: #### C VDTBH #### [facility] [address] [place] [address] Dr. Desirae LOPEZ STAINon 07-30-2021 DIPHTHEROIDS Normal [facility] Comment on above: Performed By: #### C VDTBH #### [facility] [address] [place] [address] Dr. Desirae Prabhakar EPITHELIALS Normal [facility] Comment on above: Performed By: #### C VDTBH #### [facility] [address] [place] [address] Dr. Desirae Prabhakar FUNGAL ELEMENTS Normal [facility] Comment on above: Performed By: #### C VDTBH #### [facility] [address] [place] [address] Dr. Desirae LOPEZ NEG BACILLI Normal [facility] Comment on above: Performed By: #### C VDTBH #### [facility] [address] [place] [address] Dr. Desirae LOPEZ NEG DIPPLOCOCCI Normal [facility] Comment on above: Performed By: #### C VDTBH #### [facility] [address] [place] [address] Dr. Desirae LOPEZ POS BACILLI Normal [facility] Comment on above: Performed By: #### C VDTBH #### [facility] [address] [place] [address] Dr. Desirae Prabhakar GRAM POSITIVE COCCI Normal [facility] Comment on above: Performed By: #### C VDTBH #### [facility] [address] [place] [address] Dr. Desirae Prabhakar GRAM STAIN SOURCE Right 1st metatarsal clean bone Normal [facility] Comment on above: Performed By: #### C VDTBH #### [facility] [address] [place] [address] Dr. Desirae Prabhakar GS_DIPTH Normal [facility] Comment on above: Performed By: #### C VDTBH #### [facility] [address] [address] [address] Desirae Prabhakar WBC NONE SEEN Normal [facility] Comment on above: Performed By: #### C VDTBH #### [facility] [address] [address] [address] Desirae Prabhakar POINT OF CARE GLUCOSEon 11-2 Glucose [Mass/Vol] 146 mg/dL Critically high 74-106 [facility] Comment on above: Performed By: #### P OCGLUC #### [facility] [address] [address] [address] Desirae Prabhakar Glucose [Mass/Vol] 151 mg/dL Critically high -106 [facility] Comment on above: Performed By: #### C BC #### [facility] [address] [address] [address] Desirae Prabhakar Hemoglobin A1Con 03-29-2018 Glucose mass conc 134 mg/dL Normal [facility] Comment on above: Result Comment: The ADA and AACC recommend providing the estimated average glucose result to permit better patient understanding of their HBA1c result.ADDED ON Performed By: #### L ACWB, CDP, PT, TROPI, BMP, LIPR, LIVP, GLYHGB ####[facility]RoseVq[facility] [place], [place] [id number] Hemoglobin A1c/Hemoglobin.total mass fraction (Bld) 6.3 % High 4.0-6.0 [facility] Comment on above: Result Comment: ADDE D ON Performed By: #### L ACWB, CDP, PT, TROPI, BMP, LIPR, LIVP, GLYHGB ####[facility] [address] [place], [place] [id number] Basic Metab w/rfx MGon 03-27 (cont.) Normal [facility] Comment on above: Result Comment: Aver age GFR for 40-49 years old: 99 mL/min/1.73sq mChronic Kidney Disease: <60 mL/min/1.73sq mKidney failure: <15 mL/min/1.73sq meGFR calculated using average adult body mass. Additional eGFR calculator available at:http://[email or web address]_crcl_2011.htm Performed By: #### L ACWB, CDP, PT, TROPI, BMP, LIPR, LIVP, GLYHGB ####[facility] [address] [place] [address] Anion gap 11 mmol/L Normal 9-17 [facility] Comment on above: Performed By: #### L ACWB, CDP, PT, TROPI, BMP, LIPR, LIVP, GLYHGB ####[facility] [address] [place] [address] Calcium 8.5 mg/dL Low 8.6-10.4 [facility] Comment on above: Performed By: #### L ACWB, CDP, PT, TROPI, BMP, LIPR, LIVP, GLYHGB ####[facility] [address] [place] [address] Chloride 97 mmol/L Low 98-107 [facility] Comment on above: Performed By: #### L ACWB, CDP, PT, TROPI, BMP, LIPR, LIVP, GLYHGB ####[facility] [address] [place] [address] CO2 26 mmol/L Normal 20-31 [facility] Comment on above: Performed By: #### L ACWB, CDP, PT, TROPI, BMP, LIPR, LIVP, GLYHGB ####[facility] [address] [place] [address] Creatinine 0.74 mg/dL Normal 0.70-1.20 [facility] Comment on above: Performed By: #### L ACWB, CDP, PT, TROPI, BMP, LIPR, LIVP, GLYHGB ####[facility] [address] [place] [address] GFR, Amer >60 Normal >60 [facility] Comment on above: Performed By: #### L ACWB, CDP, PT, TROPI, BMP, LIPR, LIVP, GLYHGB ####[facility] [address] [place] [address] GFR,non Amer >60 Normal >60 [facility] Comment on above: Performed By: #### L ACWB, CDP, PT, TROPI, BMP, LIPR, LIVP, GLYHGB ####[facility] [address] [place] [address] Glucose mass conc 120 mg/dL High 70-99 [facility] Comment on above: Performed By: #### L ACWB, CDP, PT, TROPI, BMP, LIPR, LIVP, GLYHGB ####[facility] [address] [place] [address] Potassium molar conc 4.0 mmol/L Normal 3.7-5.3 [facility] Comment on above: Performed By: #### L ACWB, CDP, PT, TROPI, BMP, LIPR, LIVP, GLYHGB ####[facility] [address] [place] [address] Sodium 134 mmol/L Low 135-144 [facility] Comment on above: Performed By: #### L ACWB, CDP, PT, TROPI, BMP, LIPR, LIVP, GLYHGB ####[facility] [address] [place] [address] Urea nitrogen 14 mg/dL Normal 6-20 [facility] Comment on above: Performed By: #### L ACWB, CDP, PT, TROPI, BMP, LIPR, LIVP, GLYHGB ####[facility] [place] [address] BUN/CRE Ratio NOT REPORTED Normal 9-20 [facility] Comment on above: Performed By: #### L ACWB, CDP, PT, TROPI, BMP, LIPR, LIVP, GLYHGB ####[address] [address] Staging: NOT REPORTED Normal [facility] Comment on above: Performed By: #### L ACWB, CDP, PT, TROPI, BMP, LIPR, LIVP, GLYHGB ####[address] [address] CBC with Diffon 03-27-2018 Abs. Basophil 0.05 k/uL Normal 0.00-0.20 [facility] Comment on above: Performed By: #### L ACWB, CDP, PT, TROPI, BMP, LIPR, LIVP, GLYHGB ####[address] [address] Abs.Imm.Granulocyte 0.04 k/uL Normal 0.00-0.30 [facility] Comment on above: Performed By: #### L ACWB, CDP, PT, TROPI, BMP, LIPR, LIVP, GLYHGB ####[address] [address] Abs.Neutrophil (Seg) 8.29 k/uL High 1.50-8.10 [facility] Comment on above: Performed By: #### L ACWB, CDP, PT, TROPI, BMP, LIPR, LIVP, GLYHGB ####[address] [address] Basophils/100 WBC Auto (Bld) 0 % Normal 0-2 [facility] Comment on above: Performed By: #### L ACWB, CDP, PT, TROPI, BMP, LIPR, LIVP, GLYHGB ####[address] [address] Eosinophils 0.36 10*3/uL Normal 0.00-0.44 [facility] Comment on above: Performed By: #### L ACWB, CDP, PT, TROPI, BMP, LIPR, LIVP, GLYHGB ####[address] [address] Eosinophils/100 leukocytes 3 % Normal 1-4 [facility] Comment on above: Performed By: #### L ACWB, CDP, PT, TROPI, BMP, LIPR, LIVP, GLYHGB ####[address] [address] Erythrocyte distribution width Auto Ratio (RBC) 15.0 % High 11.8-14.4 [facility] Comment on above: Performed By: #### L ACWB, CDP, PT, TROPI, BMP, LIPR, LIVP, GLYHGB ####[address] [address] Erythrocyte morphology ANISOCYTOSIS PRESENT Normal [facility] Comment on above: Result Comment: MICR OCYTOSIS PRESENT Performed By: #### L ACWB, CDP, PT, TROPI, BMP, LIPR, LIVP, GLYHGB ####[address] [address] Erythrocytes (RBC) 5.13 10*6/uL Normal 4.21-5.77 [facility] Comment on above: Performed By: #### L ACWB, CDP, PT, TROPI, BMP, LIPR, LIVP, GLYHGB ####[address] [address] Hematocrit (HCT) 39.9 % Low 40.7-50.3 [facility] Comment on above: Performed By: #### L ACWB, CDP, PT, TROPI, BMP, LIPR, LIVP, GLYHGB ####[address] [address] Hemoglobin mass conc (Bld) 12.6 g/dL Low 13.0-17.0 [facility] Comment on above: Performed By: #### L ACWB, CDP, PT, TROPI, BMP, LIPR, LIVP, GLYHGB ####[address] [place] [address] Immature granulocytes #/vol (Bld) 0 % Normal 0 [facility] Comment on above: Performed By: #### L ACWB, CDP, PT, TROPI, BMP, LIPR, LIVP, GLYHGB ####[address] [place] [address] Lymphocytes 2.71 10*3/uL Normal 1.10-3.70 [facility] Comment on above: Performed By: #### L ACWB, CDP, PT, TROPI, BMP, LIPR, LIVP, GLYHGB ####[address] [address] Lymphocytes/100 leukocytes 23 % Low 24-43 [facility] Comment on above: Performed By: #### L ACWB, CDP, PT, TROPI, BMP, LIPR, LIVP, GLYHGB ####[facility] [place] [address] MCH 24.6 pg Low 25.2-33.5 [facility] Comment on above: Performed By: #### L ACWB, CDP, PT, TROPI, BMP, LIPR, LIVP, GLYHGB ####[address] [place] [address] MCHC mass conc (RBC) 31.6 g/dL Normal 28.4-34.8 [facility] Comment on above: Performed By: #### L ACWB, CDP, PT, TROPI, BMP, LIPR, LIVP, GLYHGB ####[address] [place] [address] MCV 77.8 fL Low 82.6-102.9 [facility] Comment on above: Performed By: #### L ACWB, CDP, PT, TROPI, BMP, LIPR, LIVP, GLYHGB ####[address] [place] [address] Monocytes 0.62 10*3/uL Normal 0.10-1.20 [facility] Comment on above: Performed By: #### L ACWB, CDP, PT, TROPI, BMP, LIPR, LIVP, GLYHGB ####[address] [address] Monocytes/100 leukocytes 5 % Normal 3-12 [facility] Comment on above: Performed By: #### L ACWB, CDP, PT, TROPI, BMP, LIPR, LIVP, GLYHGB ####[address] [address] Neutrophil (Seg) 69 % High 36-65 [facility] Comment on above: Performed By: #### L ACWB, CDP, PT, TROPI, BMP, LIPR, LIVP, GLYHGB ####[address] [address] NRBC Automated 0.0 per 100 WBC Normal 0.0 [facility] Comment on above: Performed By: #### L ACWB, CDP, PT, TROPI, BMP, LIPR, LIVP, GLYHGB ####[address] [place] [address] Platelet mean volume (PMV) 9.1 fL Normal 8.1-13.5 [facility] Comment on above: Performed By: #### L ACWB, CDP, PT, TROPI, BMP, LIPR, LIVP, GLYHGB ####[address] [address] Platelets 365 10*3/uL Normal 138-453 [facility] Comment on above: Performed By: #### L ACWB, CDP, PT, TROPI, BMP, LIPR, LIVP, GLYHGB ####[address] [address] WBC (Leukocytes) 12.1 10*3/uL High 3.5-11.3 [facility] Comment on above: Performed By: #### L ACWB, CDP, PT, TROPI, BMP, LIPR, LIVP, GLYHGB ####[address] [address] Auto Diff Performed NOT REPORTED Normal [facility] Comment on above: Performed By: #### L ACWB, CDP, PT, TROPI, BMP, LIPR, LIVP, GLYHGB ####[address] [address] Platelets NOT REPORTED Normal [facility] Comment on above: Performed By: #### L ACWB, CDP, PT, TROPI, BMP, LIPR, LIVP, GLYHGB ####[address] [address] WBC Morphology NOT REPORTED Normal [facility] Comment on above: Performed By: #### L ACWB, CDP, PT, TROPI, BMP, LIPR, LIVP, GLYHGB ####[address] [address] Calcium, Ionicon 03-27-2018 Calcium 1.18 mmol/L Normal 1.13-1.33 [facility] Comment on above: Performed By: #### L ACWB, CDP, PT, TROPI, BMP, LIPR, LIVP, GLYHGB ####[address] [address] Cult,Urine,CCon 03-27-2018 Cult,Urine,CC Specimen Description .CLEAN CATCH URINE Special Requests NOT REPORTED Culture NO GROWTH Report Status FINAL 03/27/2018 Normal [facility] Comment on above: Performed By: #### L ACWB, CDP, PT, TROPI, BMP, LIPR, LIVP, GLYHGB ####[address] [place] [address] Discharge Summaryon 03-27-20 18 HIM IP Note OR Automation And Control Engineer Normal [facility] Plan of Careon 03-27-2018 HIM IP Note OR Automation And Control Engineer Normal [facility] Progress Noteon 03-27-2018 HIM IP Note OR Automation And Control Engineer Normal [facility] HIM IP Note OR Automation And Control Engineer Normal [facility] Urinalysis, Routineon 2017 Acetaminophen mass conc SMALL Abnormal NEG [facility] Comment on above: Performed By: #### L ACWB, CDP, PT, TROPI, BMP, LIPR, LIVP, GLYHGB ####[address] [place] [address] Bilirubin, SemiQt,Ur Negative Normal NEG [facility] Comment on above: Performed By: #### L ACWB, CDP, PT, TROPI, BMP, LIPR, LIVP, GLYHGB ####[address] [place] [address] Color DARK YELLOW Abnormal YEL [facility] Comment on above: Performed By: #### L ACWB, CDP, PT, TROPI, BMP, LIPR, LIVP, GLYHGB ####[facility] [address] [place] [address] Glucose,Semi-qnt,Ur Negative Normal NEG [facility] Comment on above: Performed By: #### L ACWB, CDP, PT, TROPI, BMP, LIPR, LIVP, GLYHGB ####[address] [place] [address] Hemoglobin, Ur Negative Normal NEG [facility] Comment on above: Performed By: #### L ACWB, CDP, PT, TROPI, BMP, LIPR, LIVP, GLYHGB ####[address] [place] [address] Leuckocyte Esterase Negative Normal NEG [facility] Comment on above: Performed By: #### L ACWB, CDP, PT, TROPI, BMP, LIPR, LIVP, GLYHGB ####[address] [address] Nitrite,Ur Negative Normal NEG [facility] Comment on above: Performed By: #### L ACWB, CDP, PT, TROPI, BMP, LIPR, LIVP, GLYHGB ####[address] [address] PH,Ur 5.5 Normal 5.0-8.0 [facility] Comment on above: Performed By: #### L ACWB, CDP, PT, TROPI, BMP, LIPR, LIVP, GLYHGB ####[address] [address] Protein, Semi-qnt,Ur 2+ Abnormal NEG [facility] Comment on above: Performed By: #### L ACWB, CDP, PT, TROPI, BMP, LIPR, LIVP, GLYHGB ####[address] [place] [address] Spec. [place],Ur 1.031 High 1.005-1.030 [facility] Comment on above: Performed By: #### L ACWB, CDP, PT, TROPI, BMP, LIPR, LIVP, GLYHGB ####[address] [address] Turbidity CLEAR Normal CLEAR [facility] Comment on above: Performed By: #### L ACWB, CDP, PT, TROPI, BMP, LIPR, LIVP, GLYHGB ####[address] [address] Urobilinogen,Ur Normal Normal NORM [facility] Comment on above: Performed By: #### L ACWB, CDP, PT, TROPI, BMP, LIPR, LIVP, GLYHGB ####[address] [address] Comment NOT REPORTED Normal [facility] Comment on above: Performed By: #### L ACWB, CDP, PT, TROPI, BMP, LIPR, LIVP, GLYHGB ####[address] [address] Urinalysis,Microon 8 ----- Normal [facility] Comment on above: Performed By: #### L ACWB, CDP, PT, TROPI, BMP, LIPR, LIVP, GLYHGB ####[address] [address] Casts 5 TO 10 HYALINE Normal 0-8 [facility] Comment on above: Result Comment: Refe rence range defined for non-centrifuged specimen. Performed By: #### L ACWB, CDP, PT, TROPI, BMP, LIPR, LIVP, GLYHGB ####[address] [address] Epithelial cells 5 TO 10 Normal 0-5 [facility] Comment on above: Performed By: #### L ACWB, CDP, PT, TROPI, BMP, LIPR, LIVP, GLYHGB ####[address] [address] Urine WBC's 0 TO 2 Normal 0-5 [facility] Comment on above: Performed By: #### L ACWB, CDP, PT, TROPI, BMP, LIPR, LIVP, GLYHGB ####[address] [address] Urine, erythrocytes None Normal 0-4 [facility] Comment on above: Result Comment: Refe rence range defined for non-centrifuged specimen. Performed By: #### L ACWB, CDP, PT, TROPI, BMP, LIPR, LIVP, GLYHGB ####[address] [address] Amorphous Sediment NOT REPORTED Normal NONE [facility] Comment on above: Performed By: #### L ACWB, CDP, PT, TROPI, BMP, LIPR, LIVP, GLYHGB ####[address] [address] Bacteria NOT REPORTED Normal NONE [facility] Comment on above: Performed By: #### L ACWB, CDP, PT, TROPI, BMP, LIPR, LIVP, GLYHGB ####[address] [address] Crystals NOT REPORTED Normal NONE [facility] Comment on above: Performed By: #### L ACWB, CDP, PT, TROPI, BMP, LIPR, LIVP, GLYHGB ####[address] [address] Epithelial, Renal NOT REPORTED Normal 0 [facility] Comment on above: Performed By: #### L ACWB, CDP, PT, TROPI, BMP, LIPR, LIVP, GLYHGB ####[address] [address] Mucus Strands NOT REPORTED Normal NONE [facility] Comment on above: Performed By: #### L ACWB, CDP, PT, TROPI, BMP, LIPR, LIVP, GLYHGB ####[address] [place] [address] Other Observations NOT REPORTED Normal NREQ [facility] Comment on above: Performed By: #### L ACWB, CDP, PT, TROPI, BMP, LIPR, LIVP, GLYHGB ####[facility] [address] [place] [address] Trichomonas NOT REPORTED Normal NONE [facility] Comment on above: Performed By: #### L ACWB, CDP, PT, TROPI, BMP, LIPR, LIVP, GLYHGB ####[facility] [address] [place] [address] Yeast NOT REPORTED Normal [facility] Comment on above: Performed By: #### L ACWB, CDP, PT, TROPI, BMP, LIPR, LIVP, GLYHGB ####[address] [address] Consulton 03-26-2018 HIM IP Note OR Automation And Control Engineer Normal [facility] ED Noteon 03-26-2018 HIM IP Note OR Automation And Control Engineer Normal [facility] HIM IP Note OR Automation And Control Engineer Normal [facility] HIM IP Note OR Automation And Control Engineer Normal [facility] HIM IP Note OR Automation And Control Engineer Normal [facility] History and Physicalon 03-26 HIM IP Note OR Automation And Control Engineer Normal [facility] Plan of Careon 03-26-2018 HIM IP Note OR Automation And Control Engineer Normal [facility] HIM IP Note OR Automation And Control Engineer Normal [facility] Progress Noteon 03-26-2018 HIM IP Note OR Automation And Control Engineer Normal [facility] HIM IP Note OR Automation And Control Engineer Normal [facility] HIM IP Note OR Automation And Control Engineer Normal [facility] HIM IP Note OR Automation And Control Engineer Normal [facility] HIM IP Note OR Automation And Control Engineer Normal [facility] Urinalysis w/ Microon 2017 ----- Normal [facility] Comment on above: Performed By: #### L ACWB, CDP, PT, TROPI, BMP, LIPR, LIVP, GLYHGB ####[address] [address] Acetaminophen mass conc SMALL Abnormal NEG [facility] Comment on above: Performed By: #### L ACWB, CDP, PT, TROPI, BMP, LIPR, LIVP, GLYHGB ####[address] [address] Bilirubin, SemiQt,Ur Negative Normal NEG [facility] Comment on above: Performed By: #### L ACWB, CDP, PT, TROPI, BMP, LIPR, LIVP, GLYHGB ####[address] [address] Casts 2 TO 5 HYALINE Normal 0-8 [facility] Comment on above: Result Comment: Refe rence range defined for non-centrifuged specimen. Performed By: #### L ACWB, CDP, PT, TROPI, BMP, LIPR, LIVP, GLYHGB ####[address] [address] Color YELLOW Normal YEL [facility] Comment on above: Performed By: #### L ACWB, CDP, PT, TROPI, BMP, LIPR, LIVP, GLYHGB ####[address] [address] Epithelial cells 2 TO 5 Normal 0-5 [facility] Comment on above: Performed By: #### L ACWB, CDP, PT, TROPI, BMP, LIPR, LIVP, GLYHGB ####[address] [address] Glucose,Semi-qnt,Ur Negative Normal NEG [facility] Comment on above: Performed By: #### L ACWB, CDP, PT, TROPI, BMP, LIPR, LIVP, GLYHGB ####[address] [place] [address] Hemoglobin, Ur Negative Normal NEG [facility] Comment on above: Performed By: #### L ACWB, CDP, PT, TROPI, BMP, LIPR, LIVP, GLYHGB ####[address] [address] Leuckocyte Esterase Negative Normal NEG [facility] Comment on above: Performed By: #### L ACWB, CDP, PT, TROPI, BMP, LIPR, LIVP, GLYHGB ####[address] [address] Nitrite,Ur Negative Normal NEG [facility] Comment on above: Performed By: #### L ACWB, CDP, PT, TROPI, BMP, LIPR, LIVP, GLYHGB ####[address] [address] PH,Ur 6.0 Normal 5.0-8.0 [facility] Comment on above: Performed By: #### L ACWB, CDP, PT, TROPI, BMP, LIPR, LIVP, GLYHGB ####[address] [address] Protein, Semi-qnt,Ur 1+ Abnormal NEG [facility] Comment on above: Performed By: #### L ACWB, CDP, PT, TROPI, BMP, LIPR, LIVP, GLYHGB ####[address] [place] [address] Spec. Melcroft,Ur 1.026 Normal 1.005-1.030 [facility] Comment on above: Performed By: #### L ACWB, CDP, PT, TROPI, BMP, LIPR, LIVP, GLYHGB ####[address] [address] Turbidity CLEAR Normal CLEAR [facility] Comment on above: Performed By: #### L ACWB, CDP, PT, TROPI, BMP, LIPR, LIVP, GLYHGB ####[address] [place] [address] Urine WBC's None Normal 0-5 [facility] Comment on above: Performed By: #### L ACWB, CDP, PT, TROPI, BMP, LIPR, LIVP, GLYHGB ####[facility] [address] [place] [address] Urine, erythrocytes None Normal 0-4 [facility] Comment on above: Result Comment: Refe rence range defined for non-centrifuged specimen. Performed By: #### L ACWB, CDP, PT, TROPI, BMP, LIPR, LIVP, GLYHGB ####[facility] [address] [place] [address] Urobilinogen,Ur Normal Normal NORM [facility] Comment on above: Performed By: #### L ACWB, CDP, PT, TROPI, BMP, LIPR, LIVP, GLYHGB ####[address] [place] [address] Amorphous Sediment NOT REPORTED Normal NONE [facility] Comment on above: Performed By: #### L ACWB, CDP, PT, TROPI, BMP, LIPR, LIVP, GLYHGB ####[facility] [address] [place] [address] Bacteria NOT REPORTED Normal NONE [facility] Comment on above: Performed By: #### L ACWB, CDP, PT, TROPI, BMP, LIPR, LIVP, GLYHGB ####[facility] [address] [place] [address] Crystals NOT REPORTED Normal NONE [facility] Comment on above: Performed By: #### L ACWB, CDP, PT, TROPI, BMP, LIPR, LIVP, GLYHGB ####[facility] [address] [place] [address] Epithelial, Renal NOT REPORTED Normal 0 [facility] Comment on above: Performed By: #### L ACWB, CDP, PT, TROPI, BMP, LIPR, LIVP, GLYHGB ####[facility] [address] [place] [address] Mucus Strands NOT REPORTED Normal NONE [facility] Comment on above: Performed By: #### L ACWB, CDP, PT, TROPI, BMP, LIPR, LIVP, GLYHGB ####[facility] [address] [place] [address] Other Observations NOT REPORTED Normal NREQ [facility] Comment on above: Performed By: #### L ACWB, CDP, PT, TROPI, BMP, LIPR, LIVP, GLYHGB ####[facility] [address] [place] [address] Trichomonas NOT REPORTED Normal NONE [facility] Comment on above: Performed By: #### L ACWB, CDP, PT, TROPI, BMP, LIPR, LIVP, GLYHGB ####[facility] [address] [place] [address] Yeast NOT REPORTED Normal NONE [facility] Comment on above: Performed By: #### L ACWB, CDP, PT, TROPI, BMP, LIPR, LIVP, GLYHGB ####[facility] [address] [place] [address] Consulton 03-25-2018 HIM IP Note OR Automation And Control Engineer Normal [facility] ED Noteon 03-25-2018 HIM IP Note OR Automation And Control Engineer Normal [facility] HIM IP Note OR Automation And Control Engineer Normal [facility] HIM IP Note OR Automation And Control Engineer Normal [facility] ED Provider Noteon 8 HIM IP Note OR Automation And Control Engineer Normal [facility] Consulton 03-12-2018 HIM IP Note OR Automation And Control Engineer Normal [facility] ED Noteon 03-12-2018 HIM IP Note OR Automation And Control Engineer Normal [facility] HIM IP Note OR Automation And Control Engineer Normal [facility] HIM IP Note OR Automation And Control Engineer Normal [facility] HIM IP Note OR Automation And Control Engineer Normal [facility] HIM IP Note OR Automation And Control Engineer Normal [facility] HIM IP Note OR Automation And Control Engineer Normal [facility] HIM IP Note OR Automation And Control Engineer Normal [facility] HIM IP Note OR Automation And Control Engineer Normal [facility] ED Provider Noteon 8 HIM IP Note OR Automation And Control Engineer Normal [facility] MRI LUMBAR SPINE WO CONTRAST on 03-12-2018 MRI LUMBAR SPINE WO CONTRAST EXAMINATION:MRI OF THE LUMBAR SPINE WITHOUT CONTRAST, 03/12/2018 6:46 amTECHNIQUE:Multiplanar multisequence MRI of the lumbar spine was performed without theadministration of intravenous contrast.COMPARISON:None .HISTORY:ORDERING SYSTEM PROVIDED HISTORY: r/o cord compressionBack painFINDINGS:BONES/ALIGN MENT: There is normal alignment of the spine. The vertebral bodyheights are maintained. The bone marrow signal appears unremarkable.Hemangioma noted L2 vertebral bodySPINAL CORD: The conus terminates normally.SOFT TISSUES: No paraspinal mass identified.L1-L2: There is no significant disc herniation, spinal canal stenosis orneural foraminal narrowing.L2-L3: There is no significant disc herniation, spinal canal stenosis orneural foraminal narrowing.L3-L4: There is no significant disc herniation, spinal canal stenosis orneural foraminal narrowing. Facet arthrosis.L4-L5: There is no significant disc herniation, spinal canal stenosis orneural foraminal narrowing. Facet arthrosisL5-S1: There is disc osteophyte complex with posterior osteophytic ridgingand facet arthrosis which does not cause significant canal stenosis. Thereis bilateral neural foraminal narrowing.IMPRESSION: Spondylotic changes as described. No canal compromise.Interpreted by:BLESSING Marigned by:Zoran Melo MD7/6/18Final result Normal [facility] MRI THORACIC SPINE WO THIERRY Chen 03-12-2018 MRI THORACIC SPINE WO CONTRAST EXAMINATION:MRI OF THE THORACIC SPINE WITHOUT CONTRAST 03/12/2018 6:46 amTECHNIQUE:Multiplanar multisequence MRI of the thoracic spine was performed without theadministration of intravenous contrast.COMPARISON:None .HISTORY:ORDERING SYSTEM PROVIDED HISTORY: r/o cord compressionBack pain.FINDINGS:BONES/ALIG NMENT: There is normal alignment of the spine. The vertebral bodyheights are maintained. The bone marrow signal appears unremarkable. Thereis a T9 vertebral body hemangioma.SPINAL CORD: No abnormal cord signal is seen.SOFT TISSUES: No paraspinal mass identified.DEGENERATIVE CHANGES: At T3-4, there is a left paracentral disc protrusionwithout significant canal stenosis. At T4-5 there is a central discprotrusion without significant canal stenosis. At C5-6 there is a centraldisc protrusion which effaces ventral thecal sac. 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 Bowel gas pattern isunremarkable. No acute osseous abnormality.IMPRESSION: No metallic density foreign body.Interpreted by:BLESSING Marigned by:Zoran Melo MD03/12/18Final result Normal [facility] CBCon 05-27-2017 Erythrocyte distribution width Auto Ratio (RBC) 15.2 % Normal 12.5-15.4 [facility] Comment on above: Performed By: #### L ACWB, CDP, PT, TROPI, BMP, LIPR, LIVP, GLYHGB ####[address] [address] Erythrocytes (RBC) 3.81 10*6/uL Low 4.5-5.9 [facility] Comment on above: Performed By: #### L ACWB, CDP, PT, TROPI, BMP, LIPR, LIVP, GLYHGB ####[address] [address] Hematocrit (HCT) 30.4 % Low 41-53 [facility] Comment on above: Performed By: #### L ACWB, CDP, PT, TROPI, BMP, LIPR, LIVP, GLYHGB ####[address] [address] Hemoglobin mass conc (Bld) 10.4 g/dL Low 13.5-17.5 [facility] Comment on above: Performed By: #### L ACWB, CDP, PT, TROPI, BMP, LIPR, LIVP, GLYHGB ####[address] [address] MCH 27.3 pg Normal 26-34 [facility] Comment on above: Performed By: #### L ACWB, CDP, PT, TROPI, BMP, LIPR, LIVP, GLYHGB ####[address] [address] MCHC mass conc (RBC) 34.2 g/dL Normal 31-37 [facility] Comment on above: Performed By: #### L ACWB, CDP, PT, TROPI, BMP, LIPR, LIVP, GLYHGB ####[address] [address] MCV 79.7 fL Low 80-100 [facility] Comment on above: Performed By: #### L ACWB, CDP, PT, TROPI, BMP, LIPR, LIVP, GLYHGB ####[facility] [place] [address] Platelet mean volume (PMV) 7.7 fL Normal 6.0-12.0 [facility] Comment on above: Result Comment: [address] [place] [address] Performed By: #### L ACWB, CDP, PT, TROPI, BMP, LIPR, LIVP, GLYHGB ####[address] [place] [address] Platelets 345 10*3/uL Normal 140-450 [facility] Comment on above: Performed By: #### L ACWB, CDP, PT, TROPI, BMP, LIPR, LIVP, GLYHGB ####[address] [place] [address] WBC (Leukocytes) 12.6 10*3/uL High 3.5-11.0 [facility] Comment on above: Performed By: #### L ACWB, CDP, PT, TROPI, BMP, LIPR, LIVP, GLYHGB ####[address] [address] Discharge Summaryon 05-27-20 17 HIM 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 Additional eGFR calculator available at:http://www.globalrph.com/multiple_crcl_2012.htm[facility] [address] [place] [address] Performed By: #### L ACWB, CDP, PT, TROPI, BMP, LIPR, LIVP, GLYHGB ####[address] [place] [address] Anion gap 11 mmol/L Normal 9-17 [facility] Comment on above: Performed By: #### L ACWB, CDP, PT, TROPI, BMP, LIPR, LIVP, GLYHGB ####[address] [place] [address] Calcium 7.8 mg/dL Low 8.6-10.4 [facility] Comment on above: Performed By: #### L ACWB, CDP, PT, TROPI, BMP, LIPR, LIVP, GLYHGB ####[facility] [address] [place] [address] Chloride 103 mmol/L Normal 98-107 [facility] Comment on above: Performed By: #### L ACWB, CDP, PT, TROPI, BMP, LIPR, LIVP, GLYHGB ####[address] [place] [address] CO2 25 mmol/L Normal 20-31 [facility] Comment on above: Performed By: #### L ACWB, CDP, PT, TROPI, BMP, LIPR, LIVP, GLYHGB ####[facility] [address] [place] [address] Creatinine 0.58 mg/dL Low 0.70-1.20 [facility] Comment on above: Performed By: #### L ACWB, CDP, PT, TROPI, BMP, LIPR, LIVP, GLYHGB ####[address] [address] GFR, Amer >60 Normal >60 [facility] Comment on above: Performed By: #### L ACWB, CDP, PT, TROPI, BMP, LIPR, LIVP, GLYHGB ####[address] [place] [address] GFR,non Amer >60 Normal >60 [facility] Comment on above: Performed By: #### L ACWB, CDP, PT, TROPI, BMP, LIPR, LIVP, GLYHGB ####[facility] [address] [place] [address] Glucose mass conc 165 mg/dL High 70-99 [facility] Comment on above: Performed By: #### L ACWB, CDP, PT, TROPI, BMP, LIPR, LIVP, GLYHGB ####[address] [address] Potassium molar conc 4.1 mmol/L Normal 3.7-5.3 [facility] Comment on above: Performed By: #### L ACWB, CDP, PT, TROPI, BMP, LIPR, LIVP, GLYHGB ####[facility] [place] [address] Sodium 139 mmol/L Normal 135-144 [facility] Comment on above: Performed By: #### L ACWB, CDP, PT, TROPI, BMP, LIPR, LIVP, GLYHGB ####[facility] [address] [place] [address] Urea nitrogen 6 mg/dL Normal 6-20 [facility] Comment on above: Performed By: #### L ACWB, CDP, PT, TROPI, BMP, LIPR, LIVP, GLYHGB ####[address] [place] [address] BUN/CRE Ratio NOT REPORTED Normal 9-20 [facility] Comment on above: Performed By: #### L ACWB, CDP, PT, TROPI, BMP, LIPR, LIVP, GLYHGB ####[address] [address] Staging: NOT REPORTED Normal [facility] Comment on above: Performed By: #### L ACWB, CDP, PT, TROPI, BMP, LIPR, LIVP, GLYHGB ####[address] [address] CBCon 05-26-2017 Erythrocyte distribution width Auto Ratio (RBC) 14.8 % Normal 12.5-15.4 [facility] Comment on above: Performed By: #### L ACWB, CDP, PT, TROPI, BMP, LIPR, LIVP, GLYHGB ####[address] [address] Erythrocytes (RBC) 3.47 10*6/uL Low 4.5-5.9 [facility] Comment on above: Performed By: #### L ACWB, CDP, PT, TROPI, BMP, LIPR, LIVP, GLYHGB ####[address] [address] Hematocrit (HCT) 27.7 % Low 41-53 [facility] Comment on above: Performed By: #### L ACWB, CDP, PT, TROPI, BMP, LIPR, LIVP, GLYHGB ####[address] [place] [address] Hemoglobin mass conc (Bld) 9.4 g/dL Low 13.5-17.5 [facility] Comment on above: Performed By: #### L ACWB, CDP, PT, TROPI, BMP, LIPR, LIVP, GLYHGB ####[address] [address] MCH 26.9 pg Normal 26-34 [facility] Comment on above: Performed By: #### L ACWB, CDP, PT, TROPI, BMP, LIPR, LIVP, GLYHGB ####[address] [address] [facility] mass conc (RBC) 33.7 g/dL Normal 31-37 [facility] Comment on above: Performed By: #### L ACWB, CDP, PT, TROPI, BMP, LIPR, LIVP, GLYHGB ####[address] [address] MCV 79.8 fL Low 80-100 [facility] Comment on above: Performed By: #### L ACWB, CDP, PT, TROPI, BMP, LIPR, LIVP, GLYHGB ####[address] [address] Platelet mean volume (PMV) 7.7 fL Normal 6.0-12.0 [facility] Comment on above: Result Comment: [address] [place] [address] Performed By: #### L ACWB, CDP, PT, TROPI, BMP, LIPR, LIVP, GLYHGB ####[address] [address] Platelets 263 10*3/uL Normal 140-450 [facility] Comment on above: Performed By: #### L ACWB, CDP, PT, TROPI, BMP, LIPR, LIVP, GLYHGB ####[address] [address] WBC (Leukocytes) 11.1 10*3/uL High 3.5-11.0 [facility] Comment on above: Performed By: #### L ACWB, CDP, PT, TROPI, BMP, LIPR, LIVP, GLYHGB ####[address] [place] [address] CTA ABD PELVIS W WO CONTRAST on 05-26-2017 CTA ABD PELVIS W WO CONTRAST EXAMINATION:CTA OF THE ABDOMEN AND PELVIS WITH AND WITHOUT CONTRAST 05/24/2017 8:35 pmTECHNIQUE:CTA of the abdomen and pelvis was performed without and with theadministration of intravenous contrast. Multiplanar reformatted images areprovided for review. MIP images are provided for review. Dose modulation,iterative reconstruction, and/or weight based adjustment of the mA/kV wasutilized to reduce the radiation dose to as low as reasonably achievable.Reformatted MIP images were also obtained.COMPARISON:None .HISTORY:ORDERING SYSTEM PROVIDED HISTORY: GI bleed, ok for oral contrastFINDINGS:CTA: No acute abnormality of the abdominal aorta, including no aneurysm ordissection. The celiac axis, SMA and CONSUELO vessels are widely patent.Bilateral renal arteries are widely patent. No acute abnormality of themajor pelvic arteries. No areas of extravasation identified within the bowel.Lower Chest: Minimal dependent atelectatic changes in the right lung base.Otherwise no acute abnormality in the visualized lungs. Visualized heart andmediastinum are unremarkable.Organs: Mild hepatic steatosis. Otherwise no acute liver abnormality.Gallbladder demonstrates no acute abnormality. Spleen is unremarkable.Bilateral adrenal glands are unremarkable. Bilateral kidneys areunremarkable. Mild left pelviectasis. No acute pancreatic abnormality.There is nonspecific coarse calcification within the pancreatic body.GI/Bowel: No acute abnormality of the stomach. No acute abnormality of thesmall bowel. Appendix is unremarkable. Extensive sigmoid diverticulosiswithout evidence of diverticulitis. Otherwise no acute colonic abnormality.Pelvis: No acute abnormality.Peritoneum/R etroperitoneum: No free fluid. No significant lymphadenopathy.No acute abnormality of the IVC. No free intraperitoneal air.Bones/Soft Tissues: Moderate degenerative disc disease at L5-S1. Otherwiseno acute osseous abnormality.IMPRESSION: 1. No acute findings within the abdomen or pelvis.2. Extensive sigmoid diverticulosis without evidence of diverticulitis.3. Appendix is unremarkable.4. Unremarkable CT angiogram without areas of extravasation in the GI tractto account for patient's bleeding.5. Hepatic steatosisInterpreted by:BLESSING Walligned by:Raheem Cordero MD05/26/17CC Recipients:Amado Fairchild MD - In Basket (authorizing provider)Final result Normal [facility] Hgb/Hcton 05-26-2017 Hematocrit (HCT) 30.8 % Low 41-53 [facility] Comment on above: Result Comment: [facility] [address] [place] [address] Performed By: #### L ACWB, CDP, PT, TROPI, BMP, LIPR, LIVP, GLYHGB ####[facility] [address] [place] [address] Hemoglobin mass conc (Bld) 10.4 g/dL Low 13.5-17.5 [facility] Comment on above: Performed By: #### L ACWB, CDP, PT, TROPI, BMP, LIPR, LIVP, GLYHGB ####[address] [address] Microalb.,Random Uron 2016 Creatinine 72.7 mg/dL Normal 39.0-259.0 [facility] Comment on above: Performed By: #### L ACWB, CDP, PT, TROPI, BMP, LIPR, LIVP, GLYHGB ####[address] [address] Microalb/Creat Ratio 109 mcg/mg creat High <17 [facility] Comment on above: Result Comment: [facility] [address] [place] [address] Performed By: #### L ACWB, CDP, PT, TROPI, BMP, LIPR, LIVP, GLYHGB ####[address] [address] Microalbumin conc. 79 mg/L High <21 [facility] Comment on above: Performed By: #### L ACWB, CDP, PT, TROPI, BMP, LIPR, LIVP, GLYHGB ####[address] [address] Calcium, Ionicon 05-25-2017 Calcium 1.08 mmol/L Low 1.13-1.33 [facility] Comment on above: Result Comment: [address] [address] Performed By: #### L ACWB, CDP, PT, TROPI, BMP, LIPR, LIVP, GLYHGB ####[address] [address] Hemoglobin A1Con 05-25-2017 Glucose mass conc 203 mg/dL Normal [facility] Comment on above: Result Comment: The ADA and AACC recommend providing the estimated average glucose result to permit better patient understanding of their HBA1c result.[address] [address] Performed By: #### L ACWB, CDP, PT, TROPI, BMP, LIPR, LIVP, GLYHGB ####[address] [address] Hemoglobin A1c/Hemoglobin.total mass fraction (Bld) 8.7 % High 4.0-6.0 [facility] Comment on above: Performed By: #### L ACWB, CDP, PT, TROPI, BMP, LIPR, LIVP, GLYHGB ####[address] [address] Hgb/Hcton 05-25-2017 Hematocrit (HCT) 29.7 % Low 41-53 [facility] Comment on above: Result Comment: [address] [address] Performed By: #### L ACWB, CDP, PT, TROPI, BMP, LIPR, LIVP, GLYHGB ####[address] [address] Hemoglobin mass conc (Bld) 10.0 g/dL Low 13.5-17.5 [facility] Comment on above: Performed By: #### L ACWB, CDP, PT, TROPI, BMP, LIPR, LIVP, GLYHGB ####[address] [address] MRSA, DNA, Nasalon 7 MRSA, DNA, Nasal NEGATIVE: MRSA DNA n ot detected by nucleic acid amplification. Normal [facility] Comment on above: Result Comment: Resu lts should be used as an adjunct to nosocomial control efforts to identify patients needing enhanced precautions.The test is not intended to identify patients with staphylococcal infections. Results should not be used to guide or monitor treatment for MRSA infections.[address] [address] Performed By: #### L ACWB, CDP, PT, TROPI, BMP, LIPR, LIVP, GLYHGB ####[address] [address] Basic Metabolic Profon 05-24 Anion gap 15 mmol/L Normal -17 [facility] Comment on above: Performed By: #### L ACWB, CDP, PT, TROPI, BMP, LIPR, LIVP, GLYHGB ####[address] [address] Calcium 8.0 mg/dL Low 8.6-10.4 [facility] Comment on above: Performed By: #### L ACWB, CDP, PT, TROPI, BMP, LIPR, LIVP, GLYHGB ####[address] [address] Chloride 104 mmol/L Normal 98-107 [facility] Comment on above: Performed By: #### L ACWB, CDP, PT, TROPI, BMP, LIPR, LIVP, GLYHGB ####[address] [address] CO2 20 mmol/L Normal 20-31 [facility] Comment on above: Performed By: #### L ACWB, CDP, PT, TROPI, BMP, LIPR, LIVP, GLYHGB ####[address] [place] [address] Creatinine 0.59 mg/dL Low 0.70-1.20 [facility] Comment on above: Performed By: #### L ACWB, CDP, PT, TROPI, BMP, LIPR, LIVP, GLYHGB ####[facility] [address] [place] [address] GFR, Amer >60 Normal >60 [facility] Comment on above: Performed By: #### L ACWB, CDP, PT, TROPI, BMP, LIPR, LIVP, GLYHGB ####[address] [address] GFR,non Amer >60 Normal >60 [facility] Comment on above: Performed By: #### L ACWB, CDP, PT, TROPI, BMP, LIPR, LIVP, GLYHGB ####[address] [place] [address] Glucose mass conc 280 mg/dL High 70-99 [facility] Comment on above: Performed By: #### L ACWB, CDP, PT, TROPI, BMP, LIPR, LIVP, GLYHGB ####[facility] [address] [place] [address] Potassium molar conc 4.3 mmol/L Normal 3.7-5.3 [facility] Comment on above: Performed By: #### L ACWB, CDP, PT, TROPI, BMP, LIPR, LIVP, GLYHGB ####[facility] [place] [address] Sodium 139 mmol/L Normal 135-144 [facility] Comment on above: Performed By: #### L ACWB, CDP, PT, TROPI, BMP, LIPR, LIVP, GLYHGB ####[address] [address] Urea nitrogen 14 mg/dL Normal 6-20 [facility] Comment on above: Performed By: #### L ACWB, CDP, PT, TROPI, BMP, LIPR, LIVP, GLYHGB ####[address] [address] (cont.) Normal [facility] Comment on above: Result Comment: Aver age GFR for 40-49 years old: 99 mL/min/1.73sq mChronic Kidney Disease: <60 mL/min/1.73sq mKidney failure: <15 mL/min/1.73sq meGFR calculated using average adult body mass. Additional eGFR calculator available at:http://www.Girltank/multiple_crcl_2012.htm[address] [address] Performed By: #### L ACWB, CDP, PT, TROPI, BMP, LIPR, LIVP, GLYHGB ####[address] [address] BUN/CRE Ratio NOT REPORTED Normal -20 [facility] Comment on above: Performed By: #### L ACWB, CDP, PT, TROPI, BMP, LIPR, LIVP, GLYHGB ####[address] [place] [address] Staging: NOT REPORTED Normal [facility] Comment on above: Performed By: #### L ACWB, CDP, PT, TROPI, BMP, LIPR, LIVP, GLYHGB ####[address] [address] CBC with Diffon 05-24-2017 Abs. Basophil 0.20 k/uL Normal 0.0-0.2 [facility] Comment on above: Performed By: #### L ACWB, CDP, PT, TROPI, BMP, LIPR, LIVP, GLYHGB ####[address] [address] Abs.Neutrophil (Seg) 12.00 k/uL High 1.8-7.7 [facility] Comment on above: Performed By: #### L ACWB, CDP, PT, TROPI, BMP, LIPR, LIVP, GLYHGB ####[address] [address] Basophils/100 WBC Auto (Bld) 1 % Normal [facility] Comment on above: Performed By: #### L ACWB, CDP, PT, TROPI, BMP, LIPR, LIVP, GLYHGB ####[address] [address] Eosinophils 0.10 10*3/uL Normal 0.0-0.4 [facility] Comment on above: Performed By: #### L ACWB, CDP, PT, TROPI, BMP, LIPR, LIVP, GLYHGB ####[address] [address] Eosinophils/100 leukocytes 1 % Normal [facility] Comment on above: Performed By: #### L ACWB, CDP, PT, TROPI, BMP, LIPR, LIVP, GLYHGB ####[address] [address] Erythrocyte distribution width Auto Ratio (RBC) 15.3 % Normal 12.5-15.4 [facility] Comment on above: Performed By: #### L ACWB, CDP, PT, TROPI, BMP, LIPR, LIVP, GLYHGB ####[address] [address] Erythrocyte morphology MICROCYTOSIS PRESENT Normal [facility] Comment on above: Result Comment: [facility] [address] [place] [address] Performed By: #### L ACWB, CDP, PT, TROPI, BMP, LIPR, LIVP, GLYHGB ####[facility] [place] [address] Erythrocytes (RBC) 4.28 10*6/uL Low 4.5-5.9 [facility] Comment on above: Performed By: #### L ACWB, CDP, PT, TROPI, BMP, LIPR, LIVP, GLYHGB ####[address] [place] [address] Hematocrit (HCT) 33.9 % Low 41-53 [facility] Comment on above: Performed By: #### L ACWB, CDP, PT, TROPI, BMP, LIPR, LIVP, GLYHGB ####[address] [address] Hemoglobin mass conc (Bld) 11.5 g/dL Low 13.5-17.5 [facility] Comment on above: Performed By: #### L ACWB, CDP, PT, TROPI, BMP, LIPR, LIVP, GLYHGB ####[address] [address] Lymphocytes 2.20 10*3/uL Normal 1.0-4.8 [facility] Comment on above: Performed By: #### L ACWB, CDP, PT, TROPI, BMP, LIPR, LIVP, GLYHGB ####[address] [place] [address] Lymphocytes/100 leukocytes 15 % Normal [facility] Comment on above: Performed By: #### L ACWB, CDP, PT, TROPI, BMP, LIPR, LIVP, GLYHGB ####[address] [place] [address] MCH 26.8 pg Normal 26-34 [facility] Comment on above: Performed By: #### L ACWB, CDP, PT, TROPI, BMP, LIPR, LIVP, GLYHGB ####[address] [address] MCHC mass conc (RBC) 33.8 g/dL Normal 31-37 [facility] Comment on above: Performed By: #### L ACWB, CDP, PT, TROPI, BMP, LIPR, LIVP, GLYHGB ####[address] [address] MCV 79.4 fL Low 80-100 [facility] Comment on above: Performed By: #### L ACWB, CDP, PT, TROPI, BMP, LIPR, LIVP, GLYHGB ####[address] [address] Monocytes 0.60 10*3/uL Normal 0.1-1.2 [facility] Comment on above: Performed By: #### L ACWB, CDP, PT, TROPI, BMP, LIPR, LIVP, GLYHGB ####[address] [address] Monocytes/100 leukocytes 4 % Normal [facility] Comment on above: Performed By: #### L ACWB, CDP, PT, TROPI, BMP, LIPR, LIVP, GLYHGB ####[address] [address] Neutrophil (Seg) 79 % Normal [facility] Comment on above: Performed By: #### L ACWB, CDP, PT, TROPI, BMP, LIPR, LIVP, GLYHGB ####[address] [address] Platelet mean volume (PMV) 7.7 fL Normal 6.0-12.0 [facility] Comment on above: Performed By: #### L ACWB, CDP, PT, TROPI, BMP, LIPR, LIVP, GLYHGB ####[address] [address] Platelets 325 10*3/uL Normal 140-450 [facility] Comment on above: Performed By: #### L ACWB, CDP, PT, TROPI, BMP, LIPR, LIVP, GLYHGB ####[address] [address] WBC (Leukocytes) 15.1 10*3/uL High 3.5-11.0 [facility] Comment on above: Performed By: #### L ACWB, CDP, PT, TROPI, BMP, LIPR, LIVP, GLYHGB ####[address] [address] Auto Diff Performed NOT REPORTED Normal [facility] Comment on above: Performed By: #### L ACWB, CDP, PT, TROPI, BMP, LIPR, LIVP, GLYHGB ####[address] [address] Platelets NOT REPORTED Normal [facility] Comment on above: Performed By: #### L ACWB, CDP, PT, TROPI, BMP, LIPR, LIVP, GLYHGB ####[address] [address] WBC Morphology NOT REPORTED Normal [facility] Comment on above: Performed By: #### L ACWB, CDP, PT, TROPI, BMP, LIPR, LIVP, GLYHGB ####[address] [address] Calcium, Ionicon 05-24-2017 Calcium 1.04 mmol/L Low 1.13-1.33 [facility] Comment on above: Result Comment: [facility] [address] [place] [address] Performed By: #### L ACWB, CDP, PT, TROPI, BMP, LIPR, LIVP, GLYHGB ####[facility] [address] [place] [address] Hgb/Hcton 05-24-2017 Hematocrit (HCT) 29.3 % Low 41-53 [facility] Comment on above: Result Comment: [facility] [address] [place] [address] Performed By: #### H H, IOCAL ####[address] [address] Hemoglobin mass conc (Bld) 9.8 g/dL Low 13.5-17.5 [facility] Comment on above: Performed By: #### H H, IOCAL ####[address] [address] History and Physicalon 05-24 HIM IP Note OR Automation And Control Engineer Normal [facility] Lactic Acid,Whole Blon 05-24 Lactic Acid,Whole Bl 1.9 mmol/L Normal 0.7-2.1 [facility] Comment on above: Result Comment: [facility] [address] [place] [address] Performed By: #### L ACWB, CDP, PT, TROPI, BMP, LIPR, LIVP, GLYHGB ####[address] [place] [address] Lipid Profileon 05-24-2017 Cholesterol 145 mg/dL Normal <200 [facility] Comment on above: Result Comment: Chol esterol Guidelines: <200 Desirable 200-240 Borderline >240 Undesirable Performed By: #### L ACWB, CDP, PT, TROPI, BMP, LIPR, LIVP, GLYHGB ####[address] [place] [address] Cholesterol to HDL Ratio 8.5 {ratio} High <5 [facility] Comment on above: Performed By: #### L ACWB, CDP, PT, TROPI, BMP, LIPR, LIVP, GLYHGB ####[address] [place] [address] HDL Cholesterol 17 mg/dL Low >40 [facility] Comment on above: Result Comment: HDL Guidelines: <40 Undesirable 40-59 Borderline >59 Desirable Performed By: #### L ACWB, CDP, PT, TROPI, BMP, LIPR, LIVP, GLYHGB ####[facility] [address] [place] [address] LDL Cholesterol 61 mg/dL Normal 0-130 [facility] Comment on above: Result Comment: LDL Guidelines: <100 Desirable 100-129 Near to/above Desirable 130-159 Borderline >159 UndesirableDirect (measured) LDL and calculated LDL are not interchangeable tests. Performed By: #### L ACWB, CDP, PT, TROPI, BMP, LIPR, LIVP, GLYHGB ####[facility] [address] [place] [address] Triglyceride 335 mg/dL High <150 [facility] Comment on above: Result Comment: Trig lyceride Guidelines: <150 Desirable 150- 199 Borderline 200-499 High >499 Very high Based on AHA Guidelines for fasting triglyceride, June 2012.[address] [place] [address] Performed By: #### L ACWB, CDP, PT, TROPI, BMP, LIPR, LIVP, GLYHGB ####[facility] [address] [place] [address] Cholesterol in VLDL mass conc NOT REPORTED Normal 1-30 [facility] Comment on above: Performed By: #### L ACWB, CDP, PT, TROPI, BMP, LIPR, LIVP, GLYHGB ####[address] [address] Liver Profileon 05-24-2017 Alanine aminotransferase (ALT) 23 U/L Normal 5-41 [facility] Comment on above: Performed By: #### L ACWB, CDP, PT, TROPI, BMP, LIPR, LIVP, GLYHGB ####[address] [address] Albumin 3.0 g/dL Low 3.5-5.2 [facility] Comment on above: Performed By: #### L ACWB, CDP, PT, TROPI, BMP, LIPR, LIVP, GLYHGB ####[address] [address] Albumin/Globulin Ratio 1.0 {ratio} Normal 1.0-2.5 [facility] Comment on above: Result Comment: [address] [address] Performed By: #### L ACWB, CDP, PT, TROPI, BMP, LIPR, LIVP, GLYHGB ####[address] [address] Alkaline Phos 72 U/L Normal 40-129 [facility] Comment on above: Performed By: #### L ACWB, CDP, PT, TROPI, BMP, LIPR, LIVP, GLYHGB ####[address] [address] Aspartate aminotransferase (AST) 18 U/L Normal <40 [facility] Comment on above: Performed By: #### L ACWB, CDP, PT, TROPI, BMP, LIPR, LIVP, GLYHGB ####[address] [address] Bilirubin (direct) 0.09 mg/dL Normal <0.31 [facility] Comment on above: Performed By: #### L ACWB, CDP, PT, TROPI, BMP, LIPR, LIVP, GLYHGB ####[facility] [id number] [place] [address] Bilirubin Ql (U) 0.33 mg/dL Normal 0.3-1.2 [facility] Comment on above: Performed By: #### L ACWB, CDP, PT, TROPI, BMP, LIPR, LIVP, GLYHGB ####[facility] [address] [place] [address] Bilirubin, Indirect 0.24 mg/dL Normal 0.00-1.00 [facility] Comment on above: Performed By: #### L ACWB, CDP, PT, TROPI, BMP, LIPR, LIVP, GLYHGB ####[address] [address] Protein 5.9 g/dL Low 6.4-8.3 [facility] Comment on above: Performed By: #### L ACWB, CDP, PT, TROPI, BMP, LIPR, LIVP, GLYHGB ####[address] [place] [address] Globulin NOT REPORTED Normal 1.5-3.8 [facility] Comment on above: Performed By: #### L ACWB, CDP, PT, TROPI, BMP, LIPR, LIVP, GLYHGB ####[facility] [address] [place] [address] MRSA, DNA, Nasalon 7 Specimen Description .NASAL SWAB Normal [facility] Comment on above: Performed By: #### L ACWB, CDP, PT, TROPI, BMP, LIPR, LIVP, GLYHGB ####[address] [place] [address] PTon 05-24-2017 INR Coag RelTime (PPP) 1.0 {INR} Normal [facility] Comment on above: Result Comment: Ther apeutic Range: Moderate Anticoagulant Intensity: INR = 2.0-3.0 High Anticoagulant Intensity: INR = 2.5-3.[address] [address] Performed By: #### L ACWB, CDP, PT, TROPI, BMP, LIPR, LIVP, GLYHGB ####[address] [address] Prothrombin time (PT) Coag time (PPP) 10.4 s Normal 9.4-12.6 [facility] Comment on above: Performed By: #### L ACWB, CDP, PT, TROPI, BMP, LIPR, LIVP, GLYHGB ####[place] [address] Troponinon 05-24-2017 Troponin I.cardiac mass conc Normal [facility] Comment on above: Result Comment: Refe rence Range: <0.03 Within reference range. 0.03-0.09 Possible myocardial damage.Repeat at appropriate intervals to rule out chronic elevation. >= 0.10 Indicative of myocardial damage.[address] [address] Performed By: #### L ACWB, CDP, PT, TROPI, BMP, LIPR, LIVP, GLYHGB ####[address] [address] Troponin T.cardiac mass conc ug/L Normal <0.03 [facility] Comment on above: Result Comment: Trop onin T results cannot be compared to Troponin-I results. Performed By: #### L ACWB, CDP, PT, TROPI, BMP, LIPR, LIVP, GLYHGB ####[address] [address] Vital Signs Date Time Vital Sign Value Performing Clinician Facility 01-23-2025 14:57-0400 Body height 188 cm Kirby Holt MD Work Phone: [facility] 01-23-2025 14:57-0400 Body mass index (BMI) [Ratio] 30.17 kg/m2 Kirby Holt MD Work Phone: [facility] 01-23-2025 14:57-0400 Body temperature 97.9 [degF] Kiryb Holt MD Work Phone: [facility] 01-23-2025 14:57-0400 Body weight 106.59 kg Kirby Holt MD Work Phone: [facility] 01-23-2025 14:57-0400 Diastolic blood pressure 70 mm[Hg] Kirby Holt MD Work Phone: [facility] 01-23-2025 14:57-0400 Heart rate 84 /min Kirby Holt MD Work Phone: [facility] 01-23-2025 14:57-0400 SaO2% (BldA) [Mass fraction] 96 % Kirby Holt MD Work Phone: [facility] 01-23-2025 14:57-0400 Systolic blood pressure 126 mm[Hg] Kirby Holt MD Work Phone: [facility] 11-07-2024 16:07-0500 Body height 188 cm Selena Hemmer PA Work Phone: [facility] 11-07-2024 16:07-0500 Body mass index (BMI) [Ratio] 32.92 kg/m2 Selena Hemmer PA Work Phone: [facility] 11-07-2024 16:07-0500 Body weight 116.3 kg Selena Hemmer PA Work Phone: [facility] 11-07-2024 16:07-0500 Diastolic blood pressure 74 mm[Hg] Selena Hemmer PA Work Phone: [facility] 11-07-2024 16:07-0500 Heart rate 86 /min Selena Hemmer PA Work Phone: [facility] 11-07-2024 16:07-0500 Respiratory rate 16 /min Selena Contreras PA Work Phone: [facility] 11-07-2024 16:07-0500 SaO2% (BldA) [Mass fraction] 97 % Selena Afia PA Work Phone: [facility] 11-07-2024 16:07-0500 Systolic blood pressure 136 mm[Hg] Selena Contreras PA Work Phone: [facility] 09-01-2024 11:50-0500 Body height 188 cm Kirby Holt MD Work Phone: [facility] 09-01-2024 11:50-0500 Body mass index (BMI) [Ratio] 33.77 kg/m2 Kirby Holt MD Work Phone: [facility] 09-01-2024 11:50-0500 Body weight 119.3 kg Kirby Holt MD Work Phone: [facility] 09-01-2024 11:50-0500 Diastolic blood pressure 86 mm[Hg] Kirby Holt MD Work Phone: [facility] 09-01-2024 11:50-0500 Heart rate 84 /min Kirby Holt MD Work Phone: [facility] 09-01-2024 11:50-0500 SaO2% (BldA) [Mass fraction] 97 % Kirby Holt MD Work Phone: [facility] 09-01-2024 11:50-0500 Systolic blood pressure 122 mm[Hg] Kirby Holt MD Work Phone: [facility] 08-15-2024 11:47-0500 Body temperature 98.06 [degF] Julio Tapia [facility] 08-15-2024 11:47-0500 Diastolic blood pressure 74 mm[Hg] Julio Tapia [facility] 08-15-2024 11:47-0500 Heart rate 85 /min Julio Tapia [facility] 08-15-2024 11:47-0500 Respiratory rate 16 /min Julio Tapia [facility] 08-15-2024 11:47-0500 SaO2% (BldA) [Mass fraction] 97 % Julio Tapia [facility] 08-15-2024 11:47-0500 Systolic blood pressure 141 mm[Hg] Julio Tapia [facility] 08-01-2024 16:07-0500 Body height 188 cm Kirby Holt MD Work Phone: [facility] 08-01-2024 16:07-0500 Body mass index (BMI) [Ratio] 33.77 kg/m2 Kirby Holt MD Work Phone: [facility] 08-01-2024 16:07-0500 Body weight 119.3 kg Kirby Holt MD Work Phone: [facility] 08-01-2024 16:07-0500 Diastolic blood pressure 80 mm[Hg] Kirby Holt MD Work Phone: [facility] 08-01-2024 16:07-0500 Heart rate 88 /min Kirby Holt MD Work Phone: [facility] 08-01-2024 16:07-0500 SaO2% (BldA) [Mass fraction] 97 % Kirby Holt MD Work Phone: [facility] 08-01-2024 16:07-0500 Systolic blood pressure 126 mm[Hg] Kirby Holt MD Work Phone: [facility] 05-04-2024 11:15-0400 Body height 188 cm Kirby Holt MD Work Phone: [facility] 05-04-2024 11:15-0400 Diastolic blood pressure 76 mm[Hg] Kirby Holt MD Work Phone: [facility] 05-04-2024 11:15-0400 Heart rate 78 /min Kirby Holt MD Work Phone: [facility] 05-04-2024 11:15-0400 SaO2% (BldA) [Mass fraction] 97 % Kirby Holt MD Work Phone: [facility] 05-04-2024 11:15-0400 Systolic blood pressure 128 mm[Hg] Kirby Holt MD Work Phone: [facility] Encounters Encounter Date Encounter Type Care Provider Facility Start: 01-23-2025 End: 01-23-2025 Office outpatient visit 25 minutes Kirby Holt MD Work Phone: [facility] Comment on above: Generalized abdomina l pain (Primary Dx); Weight loss; Gastroesophageal reflux disease, unspecified whether esophagitis present Start: 01-23-2025 End: 01-23-2025 ambulatory KIRBY HOLT Not Available Start: 01-23-2025 End: 01-23-2025 Bamboo flowsheet Kirby Holt MD Work Phone: [facility] Start: 01-23-2025 End: 01-23-2025 Bamboo flowsheet Kirby Holt MD Work Phone: [facility] Start: 01-18-2025 End: 01-19-2025 Refill Zahra Humphrey MA [facility] Comment on above: Spinal stenosis of l umbar region, unspecified whether neurogenic claudication present Start: 12-12-2024 End: 12-14-2024 Refill Kirby Holt MD Work Phone: [facility] Comment on above: Spinal stenosis of l umbar region, unspecified whether neurogenic claudication present Start: 11-07-2024 End: 11-07-2024 Office outpatient visit 25 minutes Selena DIAZ Work Phone: [facility] Comment on above: Type 2 diabetes mariella itus with diabetic polyneuropathy, with long-term current use of insulin (CMS/HCC) (Primary Dx); Spinal stenosis of lumbar region, unspecified whether neurogenic claudication present; Onychomycosis; senior living current use of insulin (CMS/HCC); Current smoker; Generalized anxiety disorder (CMS/HCC) Start: 11-07-2024 End: 11-07-2024 ambulatory SELENA CONTRERAS Not Available Start: 11-07-2024 End: 11-07-2024 Bamboo flowsheet Selena Contreras PA Work Phone: [facility] Start: 11-07-2024 End: 11-07-2024 Bamboo flowsheet Selena Contreras PA Work Phone: [facility] Start: 10-31-2024 End: 11-02-2024 Refill Kirby Holt MD Work Phone: [facility] Comment on above: Spinal stenosis of l umbar region, unspecified whether neurogenic claudication present Start: 09-29-2024 End: 09-30-2024 Refill Billie Cuevas LPN [facility] Comment on above: Spinal stenosis of l umbar region, unspecified whether neurogenic claudication present Start: 09-21-2024 End: 09-21-2024 Bamboo flowsheet Anuj Citlaly DO Work Phone: [facility] Start: 09-21-2024 End: 09-21-2024 Bamboo flowsheet Anuj Citlaly DO Work Phone: [facility] Start: 09-21-2024 End: 09-21-2024 ambulatory ANUJ CITLALY Not Available Start: 09-21-2024 End: 09-21-2024 Patient encounter procedure Anuj Citlaly DO Work Phone: [facility] [employer] Comment on above: Idiopathic periphera l neuropathy (Primary Dx); Spinal stenosis of lumbar region, unspecified whether neurogenic claudication present; Numbness and tingling Start: 09-01-2024 End: 09-01-2024 Office outpatient visit 25 minutes Kirby Holt MD Work Phone: [facility] Comment on above: Gluteal pain (Primar y Dx); Spinal stenosis of lumbar region, unspecified whether neurogenic claudication present Start: 09-01-2024 End: 09-01-2024 ambulatory KIRBY HOLT Not Available Start: 08-15-2024 End: 08-15-2024 Emergency department patient visit Julio Tapia [facility] Start: 08-01-2024 End: 08-01-2024 Office outpatient visit 25 minutes Kirby Holt MD Work Phone: [facility] Comment on above: Acute non-recurrent sinusitis, unspecified location (Primary Dx); Type 2 diabetes mellitus with diabetic polyneuropathy, with long-term current use of insulin (CMS/HCC); Spinal stenosis of lumbar region, unspecified whether neurogenic claudication present Start: 08-01-2024 End: 08-01-2024 ambulatory KIRBY HOLT Not Available Start: 08-01-2024 End: 08-01-2024 Bamboo flowsheet Kirby Holt MD Work Phone: [facility] Start: 08-01-2024 End: 08-01-2024 Bamboo flowsheet Kirby Holt MD Work Phone: [facility] Start: 06-02-2024 End: 06-02-2024 Refsilva Humphrey MA [facility] Comment on above: Spinal stenosis of l umbar region, unspecified whether neurogenic claudication present; Tachycardia Start: 05-04-2024 End: 05-04-2024 Bamboo flowsheet Kirby Holt MD Work Phone: [facility] Start: 05-04-2024 End: 05-04-2024 Bamboo flowsheet Kirby Holt MD Work Phone: [facility] Start: 05-04-2024 End: 05-04-2024 Office outpatient visit 25 minutes Kirby Holt MD Work Phone: [facility] Comment on above: Moderate persistent asthma with exacerbation (CMS/HCC) (Primary Dx); Type 2 diabetes mellitus with foot ulcer (CODE) (CMS/HCC); Non-pressure chronic ulcer of other part of unspecified foot with unspecified severity (CMS/HCC); Major depressive disorder, single episode, moderate (HCC) (CMS/HCC); Atherosclerosis of [place] arteries of left leg with ulceration of other part of foot (CMS/HCC); Spinal stenosis of lumbar region, unspecified whether neurogenic claudication present; Onychomycosis; Essential hypertension (CMS/[facility]) Start: 05-04-2024 End: 05-04-2024 ambulatory KIRBY HOLT Not Available Start: 03-12-2022 End: 03-13-[address] KIRBY HOLT Facility:[facility] Start: 02-27-2022 End: 02-28-[address] FRANDY OJEDA Facility:[facility] Start: 01-28-2022 ambulatory [facility] [place] Faci lity:[facility] Start: 01-12-2022 End: 01-13-[address] GAIL ROMERO Facility:[facility] Start: 01-01-2022 End: 01-02-2022 ambulatory [facility] [place] Facility:[facility] Start: 12-04-2021 End: 12-05-[address] KIRBY HOLT Facility:[facility] Start: 11-06-2021 End: 11-07-[address] KIRBY HOLT Facility:[facility] Start: 10-16-2021 End: 10-17-[address] KIRBY HOLT Facility:[facility] Start: 09-12-2021 End: 09-13-[address] KIRBY HOLT Facility:[facility] Start: 08-29-2021 End: 08-30-[address] KIRBY HOLT Facility:[facility] Start: 2021 End: 08-23-[address] KIRBY HOLT Facility:[facility] Start: 08-15-2021 End: 08-16-[address] KIRBY HOLT Facility:[facility] Start: 08-08-2021 End: 08-09-[address] KIRBY HOLT Facility:[facility] Start: 07-30-2021 End: 07-31-2021 ambulatory PRINCESS TEJEDA Facility:[facility] Start: 03-25-2018 End: 03-27-2018 Evaluation and management of inpatient KIRBY Raymond HOLT [facility] Start: 03-12-2018 End: 03-12-2018 Emergency department patient visit KIRBY Raymond HOLT [facility] Start: 05-24-2017 End: 05-27-2017 Evaluation and management of inpatient AMBER ZAMARRIPA [facility] Procedures Date Procedure Procedure Detail Performing Clinician Start: 11-07-2024 Hemoglobin glycosylated a1c Selena lazaro PA Work Phone: Start: 09-21-2024 EMG AND NERVE CONDUCTION STUDY Kirby Holt MD Work Phone: Start: 09-21-2024 End: 09-21-2024 Needle emg ea extremty w/paraspinl area complete Anuj Huizarner DO Work Phone: Start: 08-01-2024 Hemoglobin glycosylated a1c Kirby steel MD Work Phone: Start: 07-30-2021 Detachment at Right 1st Toe, Complete, Open Approach [facility] [place] Start: 03-27-2018 DISCHARGE PATIENT AMBER ZAMARRIPA Start: 03-27-2018 AMB REFERRAL TO DIABETIC EDUCATION AMBER ZAMARRIPA Start: 03-27-2018 AMB REFERRAL TO PHYSICAL THERAPY AMBER MCKEON Start: 03-27-2018 POCT GLUCOSE AMBER ZAMARRIPA Start: 03-27-2018 CALCIUM, IONIZED AMBER ZAMARRIPA Start: 03-27-2018 POC GLUCOSE FINGERSTICK AMBER ZAMARRIPA Start: 03-27-2018 INITIATE OXYGEN THERAPY PROTOCOL AMBER MCKEON Start: 03-27-2018 POCT GLUCOSE AMBER ZAMARRIPA Start: 03-27-2018 INTAKE AND OUTPUT AMBER ZAMARRIPA Start: 03-27-2018 BASIC METABOLIC PANEL W/ REFLEX TO MG FOR LOW K AMBER ZAMARRIPA Start: 03-27-2018 Blood count complete auto&auto difrntl wbc AMBER ZAMARRIPA Start: 03-27-2018 Hemoglobin glycosylated a1c AMBER ZAMARRIPA Start: 03-27-2018 Microscopic urinalysis AMBER ZAMARRIPA Start: 03-27-2018 Urnls dip stick/tablet rgnt auto w/o microscopy AMBER ZAMARRIPA Start: 03-26-2018 POC GLUCOSE FINGERSTICK AMBER ZAMARRIPA Start: 03-26-2018 MEASURE POST VOID RESIDUAL AMBER ZAMARRIPA Start: 03-26-2018 Urnls dip stick/tablet reagent auto microscopy AMBER ZAMARRIPA Start: 03-26-2018 URINE CULTURE CLEAN CATCH AMBER ZAMARRIPA Start: 03-26-2018 PATIENT STATUS (FROM ED OR OR/PROCEDURAL) AMBER ZAMARRIPA Start: 03-26-2018 POC GLUCOSE FINGERSTICK AMBER ZAMARRIPA Start: 03-26-2018 IP CONSULT TO UROLOGY AMBER ZAMARRIPA Start: 03-26-2018 INITIATE OXYGEN THERAPY PROTOCOL AMBER MCKEON Start: 03-26-2018 DIET GENERAL AMBER ZAMARRIPA Start: 03-26-2018 FULL CODE AMBER ZAMARRIPA Start: 03-26-2018 INITIATE OXYGEN THERAPY PROTOCOL AMBER T MIKE Start: 03-26-2018 INTAKE AND OUTPUT AMBER ZAMARRIPA Start: 03-26-2018 IP CONSULT TO SOCIAL WORK AMBER ZAMARRIPA Start: 03-26-2018 NEURO/VASCULAR CHECKS AMBER ZAMARRIPA Start: 03-26-2018 NOTIFY PHYSICIAN (SPECIFY) AMBER ZAMARRIPA Start: 03-26-2018 OT EVAL AND TREAT AMBER ZAMARRIPA Start: 03-26-2018 PLACE INTERMITTENT PNEUMATIC COMPRESSION DEVICE AMBER ZAMARRIPA Start: 03-26-2018 PT EVAL AND TREAT AMBER ZAMARRIPA Start: 03-26-2018 REASON FOR NO CHEMICAL VTE PROPHYLAXIS AMBER ZAMARRIPA Start: 03-26-2018 STRICT INTAKE AND OUTPUT AMBER ZAMARRIPA Start: 03-26-2018 VITAL SIGNS AMBER ZAMARRIPA Start: 03-26-2018 IP CONSULT TO INTERNAL MEDICINE AMBER CAIN Start: 03-25-2018 IP CONSULT TO NEUROSURGERY AMBER ZAMARRIPA Start: 03-12-2018 IP CONSULT TO NEUROSURGERY AMBER ZAMARRIPA Start: 03-12-2018 Mri spinal canal lumbar w/o contrast material AMBER ZAMARRIPA Start: 03-12-2018 Mri spinal canal thoracic w/o contrast matrl AMBER ZAMARRIPA Start: 03-12-2018 Radiologic exam abdomen 1 view AMBER [place] Start: 05-27-2017 DISCHARGE PATIENT AMBER ZAMARRIPA Start: 05-27-2017 POCT GLUCOSE AMBER ZAMARRIPA Start: 05-27-2017 PULSE OXIMETRY, CONTINUOUS AMBER ZAMARRIPA Start: 05-27-2017 POC GLUCOSE FINGERSTICK AMBER ZAMARRIPA Start: 05-27-2017 POCT GLUCOSE AMBER ZAMARRIPA Start: 05-27-2017 HEMOGLOBIN AND HEMATOCRIT, BLOOD AMBER Interiano MIKE Start: 05-27-2017 PULSE OXIMETRY, CONTINUOUS AMBER ZAMARRIPA Start: 05-27-2017 CBC AMBER ZAMARRIPA Start: 05-27-2017 POC GLUCOSE FINGERSTICK AMBER ZAMARRIPA Start: 05-27-2017 POCT GLUCOSE AMBER ZAMARRIPA Start: 05-27-2017 PULSE OXIMETRY, CONTINUOUS AMBER ZAMARRIPA Start: 05-27-2017 INTAKE AND OUTPUT AMBER ZAMARRIPA Start: 05-27-2017 PULSE OXIMETRY, CONTINUOUS AMBER ZAMARRIPA Start: 05-26-2017 HEMOGLOBIN AND HEMATOCRIT, BLOOD AMBER [place] MIKE Start: 05-26-2017 MICROALBUMIN, UR AMBER ZAMARRIPA Start: 05-26-2017 PREVIOUS SPECIMEN AMBER ZAMARRIPA Start: 05-26-2017 POC GLUCOSE FINGERSTICK AMBER ZAMARRIPA Start: 05-26-2017 POCT GLUCOSE AMBER ZAMARRIPA Start: 05-26-2017 PULSE OXIMETRY, CONTINUOUS AMBER MARILOU Start: 05-26-2017 POC GLUCOSE FINGERSTICK AMBER MARILOU Start: 05-26-2017 PULSE OXIMETRY, CONTINUOUS AMBER ZAMARRIPA Start: 05-26-2017 DIET CARB CONTROL AMBER ZAMARRIPA Start: 05-26-2017 POCT GLUCOSE AMBER MARILOU Start: 05-26-2017 PULSE OXIMETRY, CONTINUOUS AMBER MARILOU Start: 05-26-2017 POC GLUCOSE FINGERSTICK AMBER MARILOU Start: 05-26-2017 IP CONSULT TO COMPUTER GRAPHIC DESIGNER AMBER CAIN Start: 05-26-2017 BASIC METABOLIC PANEL AMBER ZAMARRIPA Start: 05-26-2017 CBC AMBER MARILOU Start: 05-26-2017 POCT GLUCOSE AMBER ZAMARRIPA Start: 05-26-2017 PULSE OXIMETRY, CONTINUOUS AMBER ZAMARRIPA Start: 05-26-2017 POC GLUCOSE FINGERSTICK AMBER ZAMARRIPA Start: 05-26-2017 POCT GLUCOSE AMBER ZAMARRIPA Start: 05-26-2017 PULSE OXIMETRY, CONTINUOUS AMBER RAMSEYA Start: 05-26-2017 IP CONSULT TO SOCIAL WORK AMBER ZAMARRIPA Start: 05-26-2017 OT EVAL AND TREAT AMBER ZAMARRIPA Start: 05-26-2017 INTAKE AND OUTPUT AMBER ZAMARRIPA Start: 05-26-2017 PULSE OXIMETRY, CONTINUOUS AMBER RAMSEYA Start: 05-26-2017 POC GLUCOSE FINGERSTICK AMBER ZAMARRIPA Start: 05-25-2017 POC GLUCOSE FINGERSTICK AMBER ZAMARRIPA Start: 05-25-2017 POCT GLUCOSE AMBER ZAMARRIPA Start: 05-25-2017 PULSE OXIMETRY, CONTINUOUS AMBER RAMSEYA Start: 05-25-2017 POC GLUCOSE FINGERSTICK AMBER ZAMARRIPA Start: 05-25-2017 PULSE OXIMETRY, CONTINUOUS AMBER ZAMARRIPA Start: 05-25-2017 PT EVAL AND TREAT AMBER ZAMARRIPA Start: 05-25-2017 POCT GLUCOSE AMBER ZAMARRIPA Start: 05-25-2017 PULSE OXIMETRY, CONTINUOUS AMBER ZAMARRIPA Start: 05-25-2017 POC GLUCOSE FINGERSTICK AMBER ZAMARRIPA Start: 05-25-2017 TRANSFER PATIENT AMBER ZAMARRIPA Start: 05-25-2017 ELEVATE HEELS OFF OF BED AMBER ZAMARRIPA Start: 05-25-2017 HEAD OF BED 60 DEGREES OR LESS AMBER [place] Start: 05-25-2017 MISCELLANEOUS NURSING CARE ORDER (SPECIFY) AMBER ZAMARRIPA Start: 05-25-2017 NURSING COMMUNICATION AMBER ZAMARRIPA Start: 05-25-2017 TURN PATIENT AMBER ZAMARRIPA Start: 05-25-2017 POCT GLUCOSE AMBER MARILOU Start: 05-25-2017 PULSE OXIMETRY, CONTINUOUS AMBER ZAMARRIPA Start: 05-25-2017 POC GLUCOSE FINGERSTICK AMBER MARILOU Start: 05-25-2017 RHYTHM STRIP REPORT AMBER MARILOU Start: 05-25-2017 CALCIUM, IONIZED AMBER ZAMARRIPA Start: 05-25-2017 POCT GLUCOSE AMBER MARILOU Start: 05-25-2017 PULSE OXIMETRY, CONTINUOUS AMBER MARILOU Start: 05-25-2017 HEMOGLOBIN AND HEMATOCRIT, BLOOD AMBER Jaydon MIKE Start: 05-25-2017 DAILY WEIGHTS AMBER MARILOU Start: 05-25-2017 ENDO PROCEDURE AMBER MARILOU Start: 05-25-2017 INTAKE AND OUTPUT AMBER MARILOU Start: 05-25-2017 VERIFY INFORMED CONSENT AMBER ZAMARRIPA Start: 05-25-2017 PULSE OXIMETRY, CONTINUOUS AMBER MARILOU Start: 05-24-2017 POC GLUCOSE FINGERSTICK AMBER MARILOU Start: 05-24-2017 Ct angio abd&plvis cntrst mtrl w/wo cntrst img AMBER ZAMARRIPA Start: 05-24-2017 POCT GLUCOSE AMBER MARILOU Start: 05-24-2017 PULSE OXIMETRY, CONTINUOUS AMBER MARILOU Start: 05-24-2017 TRANSFER PATIENT AMBER MARILOU Start: 05-24-2017 POC GLUCOSE FINGERSTICK AMBER MARILOU Start: 05-24-2017 CALCIUM, IONIZED AMBER MARILOU Start: 05-24-2017 HEMOGLOBIN AND HEMATOCRIT, BLOOD AMBER Jaydon MIKE Start: 05-24-2017 PULSE OXIMETRY, CONTINUOUS AMBER MARILOU Start: 05-24-2017 Esophagogastroduodenoscopy AMBER MARILOU Start: 05-24-2017 POC GLUCOSE FINGERSTICK AMBER MARILOU Start: 05-24-2017 VERIFY INFORMED CONSENT AMBER ZAMARRIPA Start: 05-24-2017 POCT GLUCOSE AMBER MARILOU Start: 05-24-2017 PULSE OXIMETRY, CONTINUOUS AMBER MARILOU Start: 05-24-2017 MRSA DNA PROBE, NASAL AMBER ZAMARRIPA Start: 05-24-2017 BASIC METABOLIC PANEL AMBER ZAMARRIPA Start: 05-24-2017 CBC WITH AUTO DIFFERENTIAL AMBER ZAMARRIPA Start: 05-24-2017 HEMOGLOBIN A1C AMBER ZAMARRIPA Start: 05-24-2017 HEPATIC FUNCTION PANEL AMBER ZAMARRIPA Start: 05-24-2017 LACTIC ACID, WHOLE BLOOD AMBER ZAMARRIPA Start: 05-24-2017 Lipid panel AMBER ZAMARRIPA Start: 05-24-2017 PROTIME-INR AMBER ZAMARRIPA Start: 05-24-2017 TROPONIN AMBER ZAMARRIPA Start: 05-24-2017 EKG 12-LEAD AMBER ZAMARRIPA Start: 05-24-2017 POCT GLUCOSE AMBER ZAMARRIPA Start: 05-24-2017 POC GLUCOSE FINGERSTICK AMBER ZAMARRIPA Start: 05-24-2017 FULL CODE AMBER ZAMARRIPA Start: 05-24-2017 IP CONSULT TO GI AMBER ZAMARRIPA Start: 05-24-2017 NOTIFY PHYSICIAN (SPECIFY) AMBER MARILOU Start: 05-24-2017 PLACE INTERMITTENT PNEUMATIC COMPRESSION DEVICE AMBER ZAMARRIPA Start: 05-24-2017 PULSE OXIMETRY, CONTINUOUS AMBER ZAMARRIPA Start: 05-24-2017 REASON FOR NO CHEMICAL VTE PROPHYLAXIS AMBER ZAMARRIPA Start: 05-24-2017 RESPIRATORY CARE EVALUATION ONLY AMBER MCKEON Start: 05-24-2017 INTAKE AND OUTPUT AMBER ZAMARRIPA Start: 05-24-2017 TELEMETRY MONITORING AMBER ZAMARRIPA Start: 05-24-2017 VITAL SIGNS AMBER ZAMARRIPA Start: 05-24-2017 PATIENT STATUS (DIRECT) ABMER ZAMARRIPA Plan of Treatment Date Care Activity Detail Author Start: 05-08-2025 Influenza vaccination Influenz a Vaccine (Season Ended) [facility] Start: 02-07-2025 Hemoglobin A1c measurement Diabetes: Hemoglobin A1C [facility] Start: 01-23-2025 End: 01-23-2025 Patient encounter procedure [facility] Comment on above: Arrived Start: 01-23-2025 End: 01-23-2026 Amylase [Enzymatic activity/volume] in Serum or Plasma Amylase Lab Routine Generalized abdominal pain Expected: 01/23/2025 (Approximate), Expires: 01/23/2026 [facility] Comment on above: Expected: 01/23/2025 (Approximate), Expires: 01/23/2026 Start: 01-23-2025 End: 01-23-2026 Comprehensive metabolic 2000 panel - Serum or Plasma Comprehensive metabolic panel Lab Routine Generalized abdominal pain Expected: 01/23/2025 (Approximate), Expires: 01/23/2026 [facility] Work Phone: Comment on above: Expected: 01/23/2025 (Approximate), Expires: 01/23/2026 Start: 01-23-2025 End: 01-23-2026 CT Abdomen and Pelvis W contrast IV CT abdomen pelvis w IV contrast Imaging Routine Generalized abdominal pain Weight loss Expected: 01/23/2025, Expires: 01/23/2026 [facility] Comment on above: Expected: 01/23/2025 , Expires: 01/23/2026 Start: 01-23-2025 End: 01-23-2026 Lipase [Enzymatic activity/volume] in Serum or Plasma Lipase Lab Routine Generalized abdominal pain Expected: 01/23/2025 (Approximate), Expires: 01/23/2026 [facility] Comment on above: Expected: 01/23/2025 (Approximate), Expires: 01/23/2026 Start: 01-14-2025 Medicare Annual Well ness (AWV) Medicare Annual Wellness (AWV) [facility] Start: 01-14-2025 Screening for malign ant neoplasm of colon Colorectal Cancer Screening [facility] Comment on above: Postponed from 08/22 (Patient Refused) Start: 01-14-2025 Urine screening for protein Diabetes: Urine Protein Screening [facility] Start: 11-07-2024 End: 11-07-2024 Patient encounter procedure [facility] Comment on above: Arrived Start: 11-07-2024 End: 11-07-2025 Comprehensive metabolic 2000 panel - Serum or Plasma Comprehensive metabolic panel Lab Routine Type 2 diabetes mellitus with diabetic polyneuropathy, with long-term current use of insulin ([facility]) Expected: 11/07/2024 (Approximate), Expires: 11/07/2025 [facility] Comment on above: Expected: 11/07/2024 (Approximate), Expires: 11/07/2025 Start: 11-07-2024 End: 11-07-2025 Microalbumin/Creatinine panel in random Urine Microalbumin / creatinine, urine ratio Lab Routine Type 2 diabetes mellitus with diabetic polyneuropathy, with long-term current use of insulin ([facility]) Expected: 11/07/2024 (Approximate), Expires: 11/07/2025 [facility] Work Phone: Comment on above: Expected: 11/07/2024 (Approximate), Expires: 11/07/2025 Start: 11-01-2024 Hemoglobin A1c measurement Diabetes: Hemoglobin A1C [facility] Start: 10-03-2024 End: 10-03-2024 Patient encounter procedure 10/03/2024 1:30 PM EST Office Visit [facility] [address] [place] [address] [place] [address] Kirby Holt MD [address] [facility] [address] [place] [address] [facility] Start: 09-01-2024 End: 09-01-2025 EMG AND NERVE CONDUCTION STUDY EMG AND NERVE CONDUCTION STUDY Neurology Routine Spinal stenosis of lumbar region, unspecified whether neurogenic claudication present Expected: 09/01/2024 (Approximate), Expires: 09/01/2025 [facility] Work Phone: Comment on above: Expected: 09/01/2024 (Approximate), Expires: 09/01/2025 Start: 08-01-2024 End: 08-01-2024 Patient encounter procedure 08/01/2024 4:00 PM EST Office Visit [facility] [address] [facility] [address] [place] [address] Kirby Holt MD [address] [facility] [address] [place] [address] Arrived [facility] Comment on above: Arrived Start: 05-08-2024 Influenza vaccination Influenza Vacc ine (#1) [facility] Start: 05-04-2024 End: 05-04-2024 Patient encounter procedure 05/04/2024 11:15 AM EDT Office Visit [facility] [address] [facility] [address] [place] [address] Kirby Holt MD [address] [facility] [address] [place] [address] Arrived [facility] Comment on above: Arrived Start: 12-28-2023 Hemoglobin A1c measurement Diabetes: Hemoglobin A1C [facility] Start: 07-17-2023 Glaucoma screening Diabetes: R etinopathy Screening [facility] Start: 10-27-2020 Urine screening for protein Diabetes: Urine Protein Screening [facility] Start: 1975 Screening for malign ant neoplasm of colon [facility] CBC W Auto Different ial panel - Blood CBC and differential Lab Routine Generalized abdominal pain Ordered: 01/23/2025 [facility] Comment on above: Ordered: 01/23/2025 Immunizations Immunization Date Immunization Notes Care Provider Fa cility 07-11-2019 influenza, injectabl e, madin dougie canine kidney, preservative free Kirby Holt MD Work Phone: [facility] 07-11-2019 influenza virus vacc ine, unspecified formulation Kirby Holt MD Work Phone: [facility] Payers Date Payer Category Payer Medicare [id number] 2017 Unknown [id number] 2016 Unknown [id number] 1974 Unknown [id number] 2.16.84 0.1.271607.3.579.2.593 1974 Unknown [id number] 2.16.84 0.1.174546.3.579.2.593 1974 Unknown [id number] 2.16.84 0.1.975669.3.579.2.593 1974 Unknown [id number] 2.16.84 0.1.940894.3.579.2.593 1974 Unknown [id number] 2.16.84 0.1.289800.3.579.2.593 1974 Unknown [id number] 2.16.84 0.1.718565.3.579.2.593 1974 Unknown [id number] 2.16.84 0.1.176644.3.579.2.593 1974 Unknown [id number] 2.16.84 0.1.686198.3.579.2.593 1974 Unknown [id number] 2.16.84 0.1.989405.3.579.2.593 1974 Unknown [id number] 2.16.84 0.1.242562.3.579.2.593 1974 Unknown [id number] 2.16.84 0.1.398275.3.579.2.593 1974 Unknown [id number] 2.16.84 0.1.913731.3.579.2.593 1974 Unknown [id number] 2.16.84 0.1.731035.3.579.2.593 1974 Unknown [id number] 2.16.84 0.1.705743.3.579.2.593 1974 Unknown [id number] 2.16.84 0.1.111198.3.579.2.593 1974 Unknown [id number] 2.16.8 40.1.971663.3.579.2.727 1974 Unknown [id number] 2.16.84 0.1.891855.3.579.2.1259 1974 Unknown [id number] 2.16.84 0.1.952933.3.579.2.1259 1974 Unknown [id number] 2.16.84 0.1.588901.3.579.2.1259 1974 Unknown [id number] 2.16.84 0.1.053896.3.579.2.1259 1974 Unknown [id number] 2.16.84 0.1.985254.3.579.2.1259 1974 Unknown [id number] 2.16.84 0.1.180942.3.579.2.1259 1960 Medicaid [id number] 1960 Medicare [id number] Social History Date Type Detail Facility Start: 04-03-2023 Tobacco smoking stat [facility] Smokes tobacco daily [facility] History of tobacco use Cigarette Smoker [facility] Start: 06-04-2023 End: 05-03-2024 History of Social function [facility] Start: 06-04-2023 End: 05-03-2024 [id number] Health Literacy [facility] How often do you nee d to have someone help you when you read instructions, pamphlets, or other written material from your doctor or pharmacy [SILS] Never [facility] Within the last year , have you been afraid of your partner or ex-partner? No [facility] Are you now , , , , never or living with a partner? Never [facility] How often to you hav e a drink containing alcohol? Never [facility] How hard is it for y ou to pay for the very basics like food, housing, medical care, and heating Somewhat hard [facility] Do you feel stress - tense, restless, nervous, or anxious, or unable to sleep at night because your mind is troubled all the time - these days [OSQ] Only a little [facility] (I/We) worried wheth er (my/our) food would run out before (I/we) got money to buy more. Never true [facility] Start: 1975 Sex assigned at Not on file [facility] Tobacco smoking status No Smokin g Status Entered [facility] Start: 11-07-2024 End: 01-23-2025 Alcoholic beverage intake Defer [facility] Medical Equipment Procedure Code Equipment Code Equipment Origin al Text Equipment Identifier Dates [id number] Start: 01-05-2024 End: 01-04-2025 Functional Status Date Assessment Result Facility 08-15-2024 Functional Status N/A [facility] Clinical Notes 07-31-2021 to 01-23-2025 Kirby Holt MD - 01/23/2025 3:00 PM EDTTelephone Encounter - JOE Glass - 01/19/2025 1:48 PM EDTTelephone Encounter - JOE Glass - 01/19/2025 1:48 PM EDT Note Date & Type Note Facility 01-23-2025 History of Present illness Narrative Images from the original note were not included. Subjective Patient ID: Julio Louise is a 49 y.o. male who presents for Abdominal Pain. Abdominal Pain Patient complains of abdominal pain. The patient is experiencing LUQ and RUQ pain without radiation. Onset was 1 month ago. Symptoms have been gradually worsening. Aggravating factors: pressure. Alleviating factors: none. Associated symptoms: nausea and vomiting. The patient denies chills, diarrhea, fever, and hematochezia. Abdominal Pain Current Outpatient Medications on File Prior to Visit Medication Sig Dispense Refill albuterol HFA (Ventolin HFA) 90 mcg/act inhaler Inhale 2 puffs every 4 (four) hours if needed for wheezing 18 g 11 ALPRAZolam (Xanax) 0.5 MG tablet Take 0.5 mg by mouth 4 (four) times a day as needed for anxiety. famotidine (Pepcid) 20 MG tablet Take 20 mg by mouth Daily fluocinonide (Lidex) 0.05 % cream APPLY TO AFFECTED AREA TWICE A DAY 60 g 5 glucose blood test strip 1 each by Other route in the morning. insulin degludec-liraglutide (Xultophy) 100-3.6 UNIT-MG/ML pen INJECT 50 UNITS UNDER THE SKIN EVERY DAY 15 mL 9 lisinopril 5 MG tablet Take 1 tablet (5 mg) by mouth Daily 30 tablet 0 loratadine (Claritin) 10 MG tablet Take 10 mg by mouth in the morning. metoprolol tartrate (Lopressor) 50 MG tablet Take 1 tablet (50 mg) by mouth in the morning and 1 tablet (50 mg) before bedtime. 180 tablet 3 nystatin (Mycostatin) 045165 UNIT/GM powder APPLY DAILY TO SKIN TO AFFECTED AREA TWICE A DAY FOR 2 WEEKS oxyCODONE-acetaminophen (Percocet) 10-325 MG tablet Take 1 tablet by mouth every 6 (six) hours if needed for severe pain 120 tablet 0 terbinafine (LamISIL) 250 MG tablet Take 1 tablet (250 mg) by mouth in the morning. 60 tablet 0 [DISCONTINUED] methylPREDNISolone (Medrol Dospak) 4 MG tablets TAKE 6 TABLETS ON DAY 1 DIRECTED ON PACKAGE AND DECREASE BY 1 TAB EACH DAY FOR A TOTAL OF 6 DAYS 21 each 0 [DISCONTINUED] oxyCODONE-acetaminophen (Percocet) 10-325 MG tablet Take 1 tablet by mouth every 6 (six) hours if needed for severe pain 120 tablet 0 [DISCONTINUED] pantoprazole (Protonix) 20 MG EC tablet Take 20 mg by mouth in the morning. Take before meals. No current facility-administered medications on file prior to visit. I have reviewed and reconciled the history and medication list with the patient today. 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 Objective Physical Exam Cardiovascular: Rate and Rhythm: Normal rate and regular rhythm. Heart sounds: No murmur heard. Pulmonary: Effort: Pulmonary effort is normal. No respiratory distress. Breath sounds: Normal breath sounds. No wheezing. Abdominal: General: Abdomen is flat. Bowel sounds are normal. There is no distension. Palpations: There is no mass. Tenderness: There is abdominal tenderness. There is no guarding or rebound. Hernia: No hernia is present. Assessment/Plan Diagnoses and all orders for this visit: Generalized abdominal pain - Comprehensive metabolic panel; Future - Amylase; Future - Lipase; Future - CBC and differential - CT abdomen pelvis w IV contrast; Future Weight loss - CT abdomen pelvis w IV contrast; Future Gastroesophageal reflux disease, unspecified whether esophagitis present - omeprazole (PriLOSEC) [address] capsule; Take 1 capsule (40 mg) by mouth in the morning and 1 capsule (40 mg) in the evening. Take before meals. Do not crush or chew. Follow up in about 1 week (around 01/30/2025) for Test/Lab Review. documented in this encounter [facility] 01-19-2025 Telephone encounter Note OARRS reviewed, Rx sent into patient's pharmacy. [facility] 01-19-2025 Miscellaneous Notes OARRS reviewed, Rx sent into patient's pharmacy. documented in this encounter [facility] 11-07-2024 History of Present illness Narrative Images from the original note were not included. HPI Med Refill Additional comments: Lamisil, Percocet Last edited by Nessa Piedra LPN on 11/07/2024 4:07 PM. Subjective Patient ID: Julio Louise is a 49 y.o. male who presents for back pain. Julio is present today for follow up back pain. He is currently on Oxycodone as needed and it works well for him. Does not check his sugars at home. Drinking a lot of Dr. Gonzales. Is switching to sugar free. Takes the Xultophy on average 5 times a week. Sometimes forgets it. States smokes for his anxiety. Rarely takes the Xanax, only for panic attacks. States does not smoke at work. Current Outpatient Medications on File Prior to Visit Medication Sig Dispense Refill albuterol HFA (Ventolin HFA) 90 mcg/act inhaler Inhale 2 puffs every 4 (four) hours if needed for wheezing 18 g 11 ALPRAZolam (Xanax) 0.5 MG tablet Take 0.5 mg by mouth 4 (four) times a day as needed for anxiety. fluocinonide (Lidex) 0.05 % cream APPLY TO AFFECTED AREA TWICE A DAY 60 g 5 glucose blood test strip 1 each by Other route in the morning. insulin degludec-liraglutide (Xultophy) 100-3.6 UNIT-MG/ML pen INJECT 50 UNITS UNDER THE SKIN EVERY DAY 15 mL 9 insulin pen needle 31G X 8 mm mis Use to inject 1-4 times daily as directed. 100 each 3 lisinopril 5 MG tablet Take 1 tablet (5 mg) by mouth Daily 30 tablet 0 loratadine (Claritin) 10 MG tablet Take 10 mg by mouth in the morning. metoprolol tartrate (Lopressor) 50 MG tablet Take 1 tablet (50 mg) by mouth in the morning and 1 tablet (50 mg) before bedtime. 180 tablet 3 nystatin (Mycostatin) 299172 UNIT/GM powder APPLY DAILY TO SKIN TO AFFECTED AREA TWICE A DAY FOR 2 WEEKS oxyCODONE-acetaminophen (Percocet) 10-325 MG tablet Take 1 tablet by mouth every 6 (six) hours if needed for severe pain for up to 7 days 28 tablet 0 pantoprazole (Protonix) 20 MG EC tablet Take 20 mg by mouth in the morning. Take before meals. terbinafine (LamISIL) 250 MG tablet TAKE 1 TABLET (250 MG) BY MOUTH IN THE MORNING 60 tablet 0 No current facility-administered medications on file prior to visit. I have reviewed and reconciled the history and medication list with the patient today. 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 Respiratory: Negative for cough, shortness of breath and wheezing. Cardiovascular: Negative for chest pain, palpitations and leg swelling. Gastrointestinal: Negative for abdominal pain, constipation, diarrhea, nausea and vomiting. Skin: Negative for rash. Objective Physical Exam Constitutional: General: He is not in acute distress. Appearance: He is obese. Comments: Smells heavily of cigarette smoke. HENT: Head: Normocephalic and atraumatic. Eyes: General: No scleral icterus. Cardiovascular: Rate and Rhythm: Normal rate and regular rhythm. Heart sounds: No murmur heard. Pulmonary: Effort: Pulmonary effort is normal. No respiratory distress. Breath sounds: Normal breath sounds. No wheezing, rhonchi or rales. Musculoskeletal: General: No swelling. Skin: General: Skin is warm and dry. Neurological: General: No focal deficit present. Mental Status: He is alert and oriented to person, place, and time. Psychiatric: Mood and Affect: Mood normal. Behavior: Behavior normal. Office Visit on 11/07/2024 Component Date Value Ref Range Status Hemoglobin A1C 11/07/2024 8.9 Final Assessment/Plan Diagnoses and all orders for this visit: Type 2 diabetes mellitus with diabetic polyneuropathy, with long-term current use of insulin (CMS/HCC) - Microalbumin / creatinine, urine ratio; Future - POCT Glycated hemoglobin, total - Comprehensive metabolic panel; Future Advised pt that his HgbA1c remains uncontrolled at 8.9 today. We discussed today, the importance of proper diabetic control. We discussed possible complications of diabetes, including loss of vision, renal failure, increased risk of heart attacks and strokes, blood vessel and/or nerve damage. We discussed the recommended changes to reduce your blood sugars and minimize the risk of these complications. We discussed diabetic goals, including keeping A1C <7.0% and blood pressure < 130/70. The plan for achieving these goals is adherence to medications, diet, and regular activity as discussed during today's visit. We discussed current barriers to achieving these goals. Spinal stenosis of lumbar region, unspecified whether neurogenic claudication present - oxyCODONE-acetaminophen (Percocet) 10-325 MG tablet; Take 1 tablet by mouth every 6 (six) hours if needed for severe pain Medication choice and dosage is appropriate for patient's current medical conditions. Patient will continue to be required to be seen in our office at least every three months for monitoring. At each follow up visit I will reassess the patient's need for the medication. Patient is to have this medication prescribed only through this office. Failure to follow the rules and regulations will result in tapering and discontinuation of medications if applicable. Patient verbalized understanding. OARRS Report was reviewed for this patient. Onychomycosis - terbinafine (LamISIL) 250 MG tablet; Take 1 tablet (250 mg) by mouth in the morning. Refill provided on the above. senior living current use of insulin ([facility]/HCC) Patient admits he still does not take the insulin every day. Encouraged him to set a reminder on his phone, or gail the day off on a paper calendar to know if he has taken it that day or not. Stressed importance of compliance to medications. Current smoker Discussed smoking cessation with the patient. Encouraged patient to cut back and soon quit smoking. Health risks of smoking, and benefits of quitting reviewed with the patient. States he knows he could quit, he just doesn't want to quit. Generalized anxiety disorder ([facility]/HCC) Offered medication that he could take on a daily basis to help with his anxiety. Advised if his anxiety was better, he would not need to rely on the cigarettes. He declines at this time. Follow up in about 3 months (around 02/07/2025) for Medication Follow Up, Diabetes. documented in this encounter [facility] 11-02-2024 Telephone encounter Note Appt scheduled [facility] 11-02-2024 Miscellaneous Notes Appt scheduled Patient was a no show for his appointment on 10/03. Needs to be rescheduled. One week supply of medication sent. OARRS report generated and reviewed. documented in this encounter [facility] 11-02-2024 Telephone encounter Note Patient was a no show for his appointment on 10/03. Needs to be rescheduled. One week supply of medication sent. OARRS report generated and reviewed. [facility] 09-30-2024 Telephone encounter Note OARRS reviewed, Rx sent into patient's pharmacy. [facility] 09-30-2024 Miscellaneous Notes OARRS reviewed, Rx sent into patient's pharmacy. documented in this encounter [facility] 09-21-2024 History of Present illness Narrative Images from the original note were not included. Reason for Appointment: EMG Patient: Julio Louise : 1975 EMG Computer: [employer] Referring Physician: Dr. Kirby Holt EMG: BLE painter decorator: Clive Holder RT(R) Office Location: [place] Reason for EMG: c/o numbness/tingling in bilateral lower legs/feet, low back pain into left hip. Hx of surgery to low back & 1st digit on right foot amputated. Pt has psoriasis which made sensory nerves difficult to access around bilateral ankles. Hx of DM. Taking ASA. Comments: Procedure was explained to the patient who expressed understanding. Patient appeared to have tolerated the test well despite some discomfort due to the nature of the test. documented in this encounter [facility] 09-01-2024 History of Present illness Narrative Images from the original note were not included. Subjective Patient ID: Julio Louise is a 49 y.o. male who presents for Back Pain. Pt is here due to back pain and is requesting an MRI for this This started bout a month ago, pt states he was in a vehicle that had the lumbar set too high and this caused his back to begin to hurt Pt has tried heat and ice this did not help him Current Outpatient Medications on File Prior to Visit Medication Sig Dispense Refill albuterol HFA (Ventolin HFA) 90 mcg/act inhaler Inhale 2 puffs every 4 (four) hours if needed for wheezing 18 g 11 ALPRAZolam (Xanax) 0.5 MG tablet Take 0.5 mg by mouth 4 (four) times a day as needed for anxiety. fluocinonide (Lidex) 0.05 % cream APPLY TO AFFECTED AREA TWICE A DAY 60 g 5 glucose blood test strip 1 each by Other route in the morning. insulin degludec-liraglutide (Xultophy) 100-3.6 UNIT-MG/ML pen INJECT 50 UNITS UNDER THE SKIN EVERY DAY 15 mL 9 insulin pen needle 31G X 8 mm misc Use to inject 1-4 times daily as directed. 100 each 3 lisinopril 5 MG tablet Take 1 tablet (5 mg) by mouth Daily 30 tablet 0 loratadine (Claritin) 10 MG tablet Take 10 mg by mouth in the morning. metoprolol tartrate (Lopressor) 50 MG tablet Take 1 tablet (50 mg) by mouth in the morning and 1 tablet (50 mg) before bedtime. 180 tablet 3 [] naproxen (Naprosyn) 500 MG tablet nystatin (Mycostatin) 216367 UNIT/GM powder APPLY DAILY TO SKIN TO AFFECTED AREA TWICE A DAY FOR 2 WEEKS pantoprazole (Protonix) 20 MG EC tablet Take 20 mg by mouth in the morning. Take before meals. terbinafine (LamISIL) 250 MG tablet TAKE 1 TABLET (250 MG) BY MOUTH IN THE MORNING 60 tablet 0 [DISCONTINUED] oxyCODONE-acetaminophen (Percocet) 10-325 MG tablet Take 1 tablet by mouth every 6 (six) hours if needed for severe pain 120 tablet 0 No current facility-administered medications on file prior to visit. I have reviewed and reconciled the history and medication list with the patient today. 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 Appearance: He is normal weight. He is not ill-appearing. HENT: Head: Normocephalic. Cardiovascular: Rate and Rhythm: Normal rate and regular rhythm. Heart sounds: Normal heart sounds. No murmur heard. Pulmonary: Effort: Pulmonary effort is normal. Breath sounds: Normal breath sounds. Musculoskeletal: General: No swelling. Left hip: Tenderness present. No deformity or bony tenderness. Normal range of motion. Normal strength. Right lower leg: No edema. Left lower leg: No edema. Legs: Comments: Area of pain Neurological: Mental Status: He is alert. Psychiatric: Mood and Affect: Mood normal. Thought Content: Thought content normal. Judgment: Judgment normal. Assessment/Plan Diagnoses and all orders for this visit: Gluteal pain Spinal stenosis of lumbar region, unspecified whether neurogenic claudication present - oxyCODONE-acetaminophen (Percocet) 10-325 MG tablet; Take 1 tablet by mouth every 6 (six) hours if needed for severe pain - methylPREDNISolone (Medrol Dospak) 4 MG tablets; Follow schedule on package instructions - EMG AND NERVE CONDUCTION STUDY; Future Follow up for F/U 1 week after EMG. documented in this encounter [facility] 08-15-2024 Hospital Discharge instructions Patient Education 08/15/2024 13:42:33 Radicular Pain Radicular Pain Radicular pain is a type of pain that spreads from your back or neck along a spinal nerve. Spinal nerves are nerves that leave the spinal cord and go to the muscles. Radicular pain is sometimes called radiculopathy, radiculitis, or a pinched nerve. When you have this type of pain, you may also have weakness, numbness, or tingling in the area of your body that is supplied by the nerve. The pain may feel sharp and burning. Depending on which spinal nerve is affected, the pain may occur in the: Neck area (cervical radicular pain). You may also feel pain, numbness, weakness, or tingling in the arms. Mid-spine area (thoracic radicular pain). You would feel this pain in the back and chest. This type is rare. Lower back area (lumbar radicular pain). You would feel this pain as low back pain. You may feel pain, numbness, weakness, or tingling in the buttocks or legs. Sciatica is a type of lumbar radicular pain that shoots down the back of the leg. Radicular pain occurs when one of the spinal nerves becomes irritated or squeezed (compressed). It is often caused by something pushing on a spinal nerve, such as one of the bones of the spine (vertebrae) or one of the round cushions between vertebrae (intervertebral disks). This can result from: An injury. Wear and tear or aging of a disk. The growth of a bone spur that pushes on the nerve. Radicular pain often goes away when you follow instructions from your health care provider for relieving pain at home. How is this treated? Treatment may depend on the cause of the condition and may include: Working with a physical therapist. Taking pain medicine. Applying heat or ice or both to the affected areas. Doing stretches to improve flexibility. Having surgery. This may be needed if other treatments do not help. Different types of surgery may be done depending on the cause of this condition. Follow these instructions at home: Managing pain If directed, put ice on the affected area. To do this: ?Put ice in a plastic bag. ?Place a towel between your skin and the bag. ?Leave the ice on for 20 minutes, 2 3 times a day. ?Remove the ice if your skin turns bright red. This is very important. If you cannot feel pain, heat, or cold, you have a greater risk of damage to the area. If directed, apply heat to the affected area as often as told by your health care provider. Use the heat source that your health care provider recommends, such as a moist heat pack or a heating pad. ?Place a towel between your skin and the heat source. ?Leave the heat on for 20 30 minutes. ?Remove the heat if your skin turns bright red. This is especially important if you are unable to feel pain, heat, or cold. You have a greater risk of getting burned. Activity Do not sit or rest in bed for long periods of time. Try to stay as active as possible. Ask your health care provider what type of exercise or activity is best for you. Avoid activities that make your pain worse, such as bending and lifting. You may have to avoid lifting. Ask your health care provider how much you can safely lift. Practice using proper technique when lifting items. Proper lifting technique involves bending your knees and rising up. Do strength and ptipn-uy-bixbsz exercises only as told by your health care provider or physical therapist. General instructions Take ckro-eqd-dmeesqv and prescription medicines only as told by your health care provider. Pay attention to any changes in your symptoms. Keep all follow-up visits. This is important. Contact a health care provider if: Your pain and other symptoms get worse. Your pain medicine is not helping. Your pain has not improved after a few weeks of home care. You have a fever. Get help right away if: You have severe pain, weakness, or numbness. You have difficulty with bladder or bowel control. Summary Radicular pain is a type of pain that spreads from your back or neck along a spinal nerve. When you have radicular pain, you may also have weakness, numbness, or tingling in the area of your body that is supplied by the nerve. The pain may feel sharp or burning. Radicular pain may be treated with ice, heat, medicines, or physical therapy. This information is not intended to replace advice given to you by your health care provider. Make sure you discuss any questions you have with your health care provider. Document Revised: 02/27/2022 Document Reviewed: 02/27/2022 [employer] Patient Education 2023 [employer] 08/15/2024 13:42:33 Hip Pain Hip Pain The hip is the joint between the upper legs and the lower pelvis. The bones, cartilage, tendons, and muscles of your hip joint support your body and allow you to move around. Hip pain can range from a minor ache to severe pain in one or both of your hips. The pain may be felt on the inside of the hip joint near the groin, or on the outside near the buttocks and upper thigh. You may also have swelling or stiffness in your hip area. Follow these instructions at home: Managing pain, stiffness, and swelling If told, put ice on the painful area. ?Put ice in a plastic bag. ?Place a towel between your skin and the bag. ?Leave the ice on for 20 minutes, 2 3 times a day. If told, apply heat to the affected area as often as told by your health care provider. Use the heat source that your provider recommends, such as a moist heat pack or a heating pad. ?Place a towel between your skin and the heat source. ?Leave the heat on for 20 30 minutes. ?If your skin turns bright red, remove the ice or heat right away to prevent skin damage. The risk of damage is higher if you cannot feel pain, heat, or cold. Activity Do exercises as told by your provider. Avoid activities that cause pain. General instructions Take zdoy-ptb-jlzborn and prescription medicines only as told by your provider. Keep a journal of your symptoms. Write down: ?How often you have hip pain. ?The location of your pain. ?What the pain feels like. ?What makes the pain worse. Sleep with a pillow between your legs on your most comfortable side. Keep all follow-up visits. Your provider will monitor your pain and activity. Contact a health care provider if: You cannot put weight on your leg. Your pain or swelling gets worse after a week. It gets harder to walk. You have a fever. Get help right away if: You fall. You have a sudden increase in pain and swelling in your hip. Your hip is red or swollen or very tender to touch. This information is not intended to replace advice given to you by your health care provider. Make sure you discuss any questions you have with your health care provider. Document Revised: 04/28/2023 Document Reviewed: 04/28/2023 [employer] Patient Education 2023 [employer]. Follow Up Care 08/15/2024 11:34:41 With:Zoran Young Address: [address] [place] [id number] Business (1) When:08/18/2024 13:22:37 With:Rodrick Gunn Address: [address] [facility], [address] [place] [address]- [phone] Business (1) When:08/18/2024 13:22:30 [facility] 08-15-2024 Note ED Patient Education Note Orthopedics Radicular Pain Radicular pain is a type of pain that spreads from your back or neck along a spinal nerve. Spinal nerves are nerves that leave the spinal cord and go to the muscles. Radicular pain is sometimes called radiculopathy, radiculitis, or a pinched nerve. When you have this type of pain, you may also have weakness, numbness, or tingling in the area of your body that is supplied by the nerve. The pain may feel sharp and burning. Depending on which spinal nerve is affected, the pain may occur in the: ??? Neck area (cervical radicular pain). You may also feel pain, numbness, weakness, or tingling in the arms. ??? Mid-spine area (thoracic radicular pain). You would feel this pain in the back and chest. This type is rare. ??? Lower back area (lumbar radicular pain). You would feel this pain as low back pain. You may feel pain, numbness, weakness, or tingling in the buttocks or legs. Sciatica is a type of lumbar radicular pain that shoots down the back of the leg. Radicular pain occurs when one of the spinal nerves becomes irritated or squeezed (compressed). It is often caused by something pushing on a spinal nerve, such as one of the bones of the spine (vertebrae) or one of the round cushions between vertebrae (intervertebral disks). This can result from: ??? An injury. ??? Wear and tear or aging of a disk. ??? The growth of a bone spur that pushes on the nerve. Radicular pain often goes away when you follow instructions from your health care provider for relieving pain at home. How is this treated? Treatment may depend on the cause of the condition and may include: ??? Working with a physical therapist. ??? Taking pain medicine. ??? Applying heat or ice or both to the affected areas. ??? Doing stretches to improve flexibility. ??? Having surgery. This may be needed if other treatments do not help. Different types of surgery may be done depending on the cause of this condition. Follow these instructions at home: Managing pain ??? If directed, put ice on the affected area. To do this: ? Put ice in a plastic bag. ? Place a towel between your skin and the bag. ? Leave the ice on for 20 minutes, 2?3 times a day. ? Remove the ice if your skin turns bright red. This is very important. If you cannot feel pain, heat, or cold, you have a greater risk of damage to the area. ??? If directed, apply heat to the affected area as often as told by your health care provider. Use the heat source that your health care provider recommends, such as a moist heat pack or a heating pad. ? Place a towel between your skin and the heat source. ? Leave the heat on for 20?30 minutes. ? Remove the heat if your skin turns bright red. This is especially important if you are unable to feel pain, heat, or cold. You have a greater risk of getting burned. Activity ??? Do not sit or rest in bed for long periods of time. ??? Try to stay as active as possible. Ask your health care provider what type of exercise or activity is best for you. ??? Avoid activities that make your pain worse, such as bending and lifting. ??? You may have to avoid lifting. Ask your health care provider how much you can safely lift. ??? Practice using proper technique when lifting items. Proper lifting technique involves bending your knees and rising up. ??? Do strength and unxec-uk-andskv exercises only as told by your health care provider or physical therapist. General instructions ??? Take qbqc-zsv-wvpoasr and prescription medicines only as told by your health care provider. ??? Pay attention to any changes in your symptoms. ??? Keep all follow-up visits. This is important. Contact a health care provider if: ??? Your pain and other symptoms get worse. ??? Your pain medicine is not helping. ??? Your pain has not improved after a few weeks of home care. ??? You have a fever. Get help right away if: ??? You have severe pain, weakness, or numbness. ??? You have difficulty with bladder or bowel control. Summary ??? Radicular pain is a type of pain that spreads from your back or neck along a spinal nerve. ??? When you have radicular pain, you may also have weakness, numbness, or tingling in the area of your body that is supplied by the nerve. ??? The pain may feel sharp or burning. ??? Radicular pain may be treated with ice, heat, medicines, or physical therapy. This information is not intended to replace advice given to you by your health care provider. Make sure you discuss any questions you have with your health care provider. Document Revised: 02/27/2022 Document Reviewed: 02/27/2022 [employer] Patient Education ? 2023 [employer] Hip Pain The hip is the joint between the upper legs and the lower pelvis. The bones, cartilage, tendons, and muscles of your hip joint support your body and allow you to move a (more content not included)... [facility] 08-01-2024 History of Present illness Narrative Images from the original note were not included. HPI Med Refill Additional comments: [facility] Last edited by Billie Cuevas LPN on 08/01/2024 4:15 PM. Subjective Patient ID: Julio Louise is a 48 y.o. male who presents for Follow-up, Diabetes, and Med Refill ([facility]). C/O SINUSITIS sinus pressure,headache,dizziness x 1 week Diabetes Mellitus Patient presents for follow up of diabetes. Current symptoms include: none. Patient denies foot ulcerations, hypoglycemia , paresthesia of the feet, polydipsia, polyuria, and visual disturbances. Evaluation to date has included: fasting blood sugar, fasting lipid panel, and hemoglobin A1C. Home sugars: patient does not check sugars. Diabetes Pertinent negatives for diabetes include no chest pain, no fatigue and no weakness. Med Refill Associated symptoms include numbness. Pertinent negatives include no abdominal pain, chest pain, coughing, fatigue, nausea, vomiting or weakness. Current Outpatient Medications on File Prior to Visit Medication Sig Dispense Refill albuterol HFA (Ventolin HFA) 90 mcg/act inhaler Inhale 2 puffs every 4 (four) hours if needed for wheezing 18 g 11 ALPRAZolam (Xanax) 0.5 MG tablet Take 0.5 mg by mouth 4 (four) times a day as needed for anxiety. fluocinonide (Lidex) 0.05 % cream APPLY TO AFFECTED AREA TWICE A DAY 60 g 5 glucose blood test strip 1 each by Other route in the morning. insulin degludec-liraglutide (Xultophy) 100-3.6 UNIT-MG/ML pen INJECT 50 UNITS UNDER THE SKIN EVERY DAY 15 mL 9 insulin pen needle 31G X 8 mm misc Use to inject 1-4 times daily as directed. 100 each 3 lisinopril 5 MG tablet Take 1 tablet (5 mg) by mouth Daily 30 tablet 0 loratadine (Claritin) 10 MG tablet Take 10 mg by mouth in the morning. metoprolol tartrate (Lopressor) 50 MG tablet Take 1 tablet (50 mg) by mouth in the morning and 1 tablet (50 mg) before bedtime. 180 tablet 3 nystatin (Mycostatin) 015661 UNIT/GM powder APPLY DAILY TO SKIN TO AFFECTED AREA TWICE A DAY FOR 2 WEEKS pantoprazole (Protonix) 20 MG EC tablet Take 20 mg by mouth in the morning. Take before meals. terbinafine (LamISIL) 250 MG tablet TAKE 1 TABLET (250 MG) BY MOUTH IN THE MORNING 60 tablet 0 [DISCONTINUED] oxyCODONE-acetaminophen (Percocet) 10-325 MG tablet Take 1 tablet by mouth every 6 (six) hours if needed for severe pain 120 tablet 0 [DISCONTINUED] lisinopril 5 MG tablet Take 1 tablet (5 mg) by mouth Daily 100 tablet 3 No current facility-administered medications on file prior to visit. I have reviewed and reconciled the history and medication list with the patient today. 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 Respiratory: Negative for cough. Cardiovascular: Negative for chest pain. Gastrointestinal: Negative for abdominal pain, nausea and vomiting. Neurological: Positive for numbness. Negative for weakness. Objective Physical Exam Constitutional: General: He is not in acute distress. Appearance: He is normal weight. He is not ill-appearing. HENT: Head: Normocephalic. Nose: Congestion present. Mouth/Throat: Pharynx: Oropharyngeal exudate and posterior oropharyngeal erythema present. Cardiovascular: Rate and Rhythm: Normal rate and regular rhythm. Heart sounds: Normal heart sounds. No murmur heard. Pulmonary: Effort: Pulmonary effort is normal. Prolonged expiration present. Breath sounds: Normal breath sounds. Decreased air movement present. Musculoskeletal: General: No swelling. Right lower leg: No edema. Left lower leg: No edema. Neurological: Mental Status: He is alert. Psychiatric: Mood and Affect: Mood normal. Thought Content: Thought content normal. Judgment: Judgment normal. Office Visit on 08/01/2024 Component Date Value Ref Range Status Hemoglobin A1C 08/01/2024 8.9 Final Assessment/Plan Diagnoses and all orders for this visit: Acute non-recurrent sinusitis, unspecified location - amoxicillin-clavulanate (Augmentin) 875-125 MG tablet; Take 1 tablet (875 mg) by mouth in the morning and 1 tablet (875 mg) before bedtime. Do all this for 10 days. Type 2 diabetes mellitus with diabetic polyneuropathy, with long-term current use of insulin ([facility]) - POCT Glycated hemoglobin, total - He will stop drinking Dr Gonzales and start taking his Xultophy daily as directed. Spinal stenosis of lumbar region, unspecified whether neurogenic claudication present - oxyCODONE-acetaminophen (Percocet) 10-325 MG tablet; Take 1 tablet by mouth every 6 (six) hours if needed for severe pain Follow up in about 2 months (around 10/01/2024) for DM- A1C. documented in this encounter [facility] 05-04-2024 History of Present illness Narrative Images from the original note were not included. HPI Follow-up Additional comments: Pain med Med Refill Additional comments: Lisinopril,lamisil,percocet-- [facility] Last edited by Billie Cuevas LPN on 05/04/2024 11:20 AM. Subjective Patient ID: Julio Louise is a 48 y.o. male who presents for Follow-up (Pain med), Diabetes, and Med Refill (Lisinopril,lamisil,percocet-- [facility]). Diabetes Mellitus Patient presents for follow up of diabetes. Current symptoms include: none. Patient denies foot ulcerations, hypoglycemia , paresthesia of the feet, polydipsia, polyuria, and visual disturbances. Evaluation to date has included: fasting blood sugar, fasting lipid panel, and hemoglobin A1C. Home sugars: patient does not check sugars. Diabetes Pertinent negatives for diabetes include no chest pain, no fatigue and no weakness. Med Refill Associated symptoms include numbness. Pertinent negatives include no abdominal pain, chest pain, coughing, fatigue, nausea, vomiting or weakness. Current Outpatient Medications on File Prior to Visit Medication Sig Dispense Refill albuterol HFA 90 mcg/act inhaler Inhale 1 puff every 6 (six) hours if needed for wheezing or shortness of breath. ALPRAZolam (Xanax) 0.5 MG tablet Take 0.5 mg by mouth 4 (four) times a day as needed for anxiety. azithromycin (Zithromax) 250 MG tablet fluocinonide (Lidex) 0.05 % cream APPLY TO AFFECTED AREA TWICE A DAY 60 g 5 glucose blood test strip 1 each by Other route in the morning. insulin degludec-liraglutide (Xultophy) 100-3.6 UNIT-MG/ML pen Inject 50 Units under the skin Daily 15 pen 3 insulin pen needle 31G X 8 mm misc Use to inject 1-4 times daily as directed. 100 each 3 lisinopril 5 MG tablet Take 1 tablet (5 mg) by mouth in the morning. 100 tablet 3 loratadine (Claritin) 10 MG tablet Take 10 mg by mouth in the morning. nystatin (Mycostatin) 313970 UNIT/GM powder APPLY DAILY TO SKIN TO AFFECTED AREA TWICE A DAY FOR 2 WEEKS oxyCODONE-acetaminophen (Percocet) 10-325 MG tablet Take 1 tablet by mouth every 6 (six) hours if needed for severe pain 120 tablet 0 pantoprazole (Protonix) 20 MG EC tablet Take 20 mg by mouth in the morning. Take before meals. predniSONE (Deltasone) 20 MG tablet terbinafine (LamISIL) 250 MG tablet TAKE 1 TABLET BY MOUTH IN THE MORNING 60 tablet 0 metoprolol tartrate (Lopressor) 50 MG tablet Take 1 tablet (50 mg) by mouth in the morning and 1 tablet (50 mg) before bedtime. 180 tablet 3 No current facility-administered medications on file prior to visit. 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 Respiratory: Negative for cough. Cardiovascular: Negative for chest pain. Gastrointestinal: Negative for abdominal pain, nausea and vomiting. Neurological: Positive for numbness. Negative for weakness. Objective Physical Exam Constitutional: General: He is not in acute distress. Appearance: He is normal weight. He is not ill-appearing. HENT: Head: Normocephalic. Cardiovascular: Rate and Rhythm: Normal rate and regular rhythm. Heart sounds: Normal heart sounds. No murmur heard. Pulmonary: Effort: Pulmonary effort is normal. Prolonged expiration present. Breath sounds: Decreased air movement present. Musculoskeletal: General: No swelling. Right lower leg: No edema. Left lower leg: No edema. Neurological: Mental Status: He is alert. Psychiatric: Mood and Affect: Mood normal. Assessment/Plan Diagnoses and all orders for this visit: Moderate persistent asthma with exacerbation (CMS/HCC) - Seen in ER 2 days ago, treated and released. He is on ATB and steroids at present. 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 Discussed importance of properly storing and disposing of the medication. Reviewed the goals of treatment, including improving pain control and improving functional status. Medication choice and dosage is appropriate for patient's current medical conditions. Reviewed the rules and regulations surrounding prescription of opioids and compliance at length with the patient. Patient will be required to be seen in our office at least every three months for monitoring. At each follow up visit I will reassess the patient's need for the medication. Patient is to have this medication prescribed only through this office. Failure to follow the rules and regulations will result in tapering and discontinuation of medications if applicable. Patient verbalized understanding. OARRS Report was reviewed for this patient. Onychomycosis Comments: Lamisil renewed today. Discussed most common side effects with the pt today. Orders: - terbinafine (LamISIL) 250 MG tablet; Take 1 tablet (250 mg) by mouth in the morning. Essential hypertension (CMS/HCC) - lisinopril 5 MG tablet; Take 1 tablet (5 mg) by mouth Daily No follow-ups on file. documented in this encounter [facility] 07-31-2021 Note PROCEDURE: XR FOOT R T MIN 3 VIEWS HISTORY: Pain in right foot ; chronic ulceration of right first toe COMPARISON: XR foot bilateral 10/18/2019 FINDINGS: BONES:Destructive osseous changes of the tip of the first distal phalanx. SOFT TISSUES:Soft tissue irregularity and swelling of distal first right toe. EFFUSION:None visible. OTHER: Negative. IMPRESSION: 1. Findings consistent with ulceration and osteomyelitis of the right first toe distal phalanx. Electronically authenticated by: JOYA SILVESTRE Date: 2021-07-31 12:14 [facility] 07-31-2021 Note PROCEDURE: XR FOOT R T MIN 3 VIEWS HISTORY: Postoperative care COMPARISON: XR foot right 07/30/2021 FINDINGS: BONES:Interval amputation of the first toe at the metatarsophalangeal joint. SOFT TISSUES:Soft tissue swelling and changes consistent with recent amputation. Small amount of postsurgical air within the soft tissues. EFFUSION:None visible. OTHER: Negative. IMPRESSION: 1. Right first toe amputation with expected postsurgical findings. Electronically authenticated by: JOYA SILVESTRE Date: 2021-07-31 07:15 [facility] Evaluation + Plan note No data available for this section [facility] Evaluation note Diagnosis Acute non-recurrent sinusitis, unspecified location- Primary Type 2 diabetes mellitus with diabetic polyneuropathy, with long-term current use of insulin ([facility]/HCC) Spinal stenosis of lumbar region, unspecified whether neurogenic claudication present documented in this encounter [facility] HealthcareEvaluation note* Diagnosis Moderate persistent asthma with exacerbation (CMS/HCC)- Primary Unspecified asthma, with exacerbation Type 2 diabetes mellitus with foot ulcer (CODE) (CMS/HCC) Non-pressure chronic ulcer of other part of unspecified foot with unspecified severity (CMS/HCC) Major depressive disorder, single episode, moderate (HCC) ([facility]) Major depressive disorder, single episode, moderate Atherosclerosis of [place] arteries of left leg with ulceration of other part of foot ([facility]) Spinal stenosis of lumbar region, unspecified whether neurogenic claudication present Onychomycosis Dermatophytosis of nail Essential hypertension ([facility]) Unspecified essential hypertension documented in this encounter [facility]* Diagnosis Spinal stenosis of lumbar region, unspecified whether neurogenic claudication present Tachycardia Unspecified tachycardia documented in this encounter [facility]* Diagnosis Gluteal pain- Primary Spinal stenosis of lumbar region, unspecified whether neurogenic claudication present documented in this encounter [facility]* Diagnosis Idiopathic peripheral neuropathy- Primary Unspecified hereditary and idiopathic peripheral neuropathy Spinal stenosis of lumbar region, unspecified whether neurogenic claudication present Numbness and tingling Disturbance of skin sensation documented in this encounter [facility]* Diagnosis Spinal stenosis of lumbar region, unspecified whether neurogenic claudication present documented [facility] this encounter [facility]* Diagnosis Spinal stenosis of lumbar region, unspecified whether neurogenic claudication present documented [facility] this encounter [facility]* Diagnosis Type 2 diabetes mellitus with diabetic polyneuropathy, with long-term current use of insulin ([facility])- Primary Spinal stenosis of lumbar region, unspecified whether neurogenic claudication present Onychomycosis Dermatophytosis of nail senior living current use of insulin ([facility]) Current smoker Generalized anxiety disorder ([facility]) Generalized anxiety disorder documented in this encounter [facility]* Diagnosis Spinal stenosis of lumbar region, unspecified whether neurogenic claudication present documented [facility] this encounter [facility]* Diagnosis Generalized abdominal pain- Primary Abdominal pain, generalized Weight loss Loss of weight Gastroesophageal reflux disease, unspecified whether esophagitis present documented in this encounter [facility] No data available for this section [facility] Reason for visit Narrative* Other Medical (Routine) - Closed Specialty Diagnoses / Procedures Referred By Contac t Referred To Contact Neurology Diagnoses Spinal stenosis of lumbar region, unspecified whether neurogenic claudication present Procedures [employer]CTION STUDY Kirby Holt MD [address] [place] [address] Phone: tel: fax: Anuj Robertson DO [id number] [place] [address] Phone: tel: fax: Referral ID Status Reason Start Date Expiration Date V isits Requested Visits Authorized [id number] Closed Perform Procedure 09/01/2024 02/28/2025 1 1 [facility] Summary Purpose Family History No Family History Records FoundNo Family History Records FoundNo Family History Records Found No data available for this section No Family History Records FoundNo Family History Records Found Advance Directives No Advanced Directives Records FoundNo Advanced Directives Records FoundNo Advanced Directives Records FoundNo Advanced Directives Records FoundNo Advanced Directives Records Found Additional Source Comments (unrecognized sect ion and content) No Status Records FoundNo Status Records FoundNo Status Records FoundNo Status Records FoundNo Status Records Found INFORMATION SOURCE (unrecogn ized section and content) DATE CREATED AUTHOR 03/30/2018 [facility] DATE CREATED AUTHOR AUTHOR'S ORGANIZ ATION 01/06/2022 [facility] dical Specialist DATE CREATED AUTHOR AUTHOR'S ORGANIZ ATION 03/16/2022 [facility] DATE CREATED AUTHOR AUTHOR'S ORGANIZ ATION 08/21/2024 [facility] DATE CREATED AUTHOR AUTHOR'S ORGANIZ ATION 01/24/2025 [facility] dical Specialists EPIC Care Teams (unrecognized sec tion and content) Import/Export Clerk Relationship Specialty Start Date End Date Kirby Holt MD [address] [place] [address] PCP - General Internal Medicine 02/26/23 Kirby Holt MD [address] [place] [address] PCP - ACO Reach 11/06/23ThuSantiagoFaith LPN [address] [place] [address] Licensed Practical Nurse Family Medicine 05/02/24 Import/Export Clerk Relationship Specialty Start Date End Date Kirby Holt MD [address] [place] [address] PCP - General Internal Medicine 02/26/23 Kirby Holt MD [address] [place] [address] PCP - ACO Reach 11/06/23Thursday, Faith, INSTRUCTIONAL TECHNOLOGY INSTRUCTOR [address] [place] [address] Licensed Practical Nurse Family Medicine 05/02/24 Import/Export Clerk Relationship Specialty Start Date End Date Kirby Holt MD [address] [place] [address] PCP - General Internal Medicine 02/26/23 Kirby Holt MD [address] [place] [address] PCP - ACO Reach 11/06/23Thursday, Faith, INSTRUCTIONAL TECHNOLOGY INSTRUCTOR [address] [place] [address] Licensed Practical Nurse Family Medicine 05/02/24 Import/Export Clerk Relationship Specialty Start Date End Date Kirby Holt MD [address] [place] [address] PCP - General Internal Medicine 02/26/23 Kirby Holt MD [address] [place] [address] PCP - ACO Reach 11/06/23Thursday, Faith, INSTRUCTIONAL TECHNOLOGY INSTRUCTOR [address] [place] [address] Licensed Practical Nurse Family Medicine 05/02/24 Import/Export Clerk Relationship Specialty Start Date End Date Kirby Holt MD [address] [place] [address] PCP - General Internal Medicine 02/26/23 Kirby Holt MD [address] [place] [address] PCP - ACO Reach 11/06/23Thursday, Faith, INSTRUCTIONAL TECHNOLOGY INSTRUCTOR [address] [place] [address] Licensed Practical Nurse Family Medicine 05/02/24 Import/Export Clerk Relationship Specialty Start Date End Date Kirby Holt MD [address] [place] [address] PCP - General Internal Medicine 02/26/23 Kirby Holt MD [address] [place] [address] PCP - ACO Reach 11/06/23Thursday, Faith, INSTRUCTIONAL TECHNOLOGY INSTRUCTOR [address] [place] [address] Licensed Practical Nurse Family Medicine 05/02/24 Import/Export Clerk Relationship Specialty Start Date End Date Kirby Holt MD [address] [place] [address] PCP - General Internal Medicine 02/26/23 Kirby Holt MD [address] [place] [address] PCP - ACO Reach 11/06/23Thursday, Faith, INSTRUCTIONAL TECHNOLOGY INSTRUCTOR [address] [place] [address] Licensed Practical Nurse Family Medicine 05/02/24 Import/Export Clerk Relationship Specialty Start Date End Date Kirby Holt MD [address] [place] [address] PCP - General Internal Medicine 02/26/23 Kirby Holt MD [address] [place] [address] PCP - ACO Reach 11/06/23Thursday FaithОЛЕГ [address] [place] [address] Licensed Practical Nurse Family Medicine 05/02/24 Import/Export Clerk Relationship Specialty Start Date End Date Kirby Holt MD [address] [place] [address] PCP - General Internal Medicine 02/26/23 Kirby Holt MD [address] [place] [address] PCP - ACO Reach 11/06/23 Zahra Wright, RN Licensed Practical Nurse Family Medicine 10/14/24 Import/Export Clerk Relationship Specialty Start Date End Date Kirby Holt MD [address] [place] [address] PCP - General Internal Medicine 02/26/23 Kirby Holt MD [address] [place] [address] PCP - ACO Reach 11/06/23 Zahra Wright, RN Licensed Practical Nurse Family Medicine 10/14/24 Import/Export Clerk Relationship Specialty Start Date End Date Kirby Holt MD [address] [place] [address] PCP - General Internal Medicine 02/26/23 Kirby Holt MD [address] [place] [address] PCP - ACO Reach 11/06/23 Zahra Wright, DAGO Licensed Practical Nurse Family Medicine 10/14/24 Import/Export Clerk Relationship Specialty Start Date End Date Kirby Holt MD [address] [place] [address] PCP - General Internal Medicine 02/26/23 Kirby Holt MD [address] [place] [address] PCP - ACO Reach 11/06/23 Humera Santiago LPN 11/25/24 Import/Export Clerk Relationship Specialty Start Date End Date Kirby Holt MD [address] [place] [address] PCP - General Internal Medicine 02/26/23 Kirby Holt MD [address] [place] [address] PCP - ACO Reach 11/06/23 Humera Santiago LPN 11/25/24 Import/Export Clerk Relationship Specialty Start Date End Date Kirby Holt MD [address] [place] [address] PCP - General Internal Medicine 02/26/23 Kirby Holt MD [address] [place] [address] PCP - ACO Reach 11/06/23 Humera Santiago LPN 11/25/24 Import/Export Clerk Relationship Specialty Start Date End Date Kirby Holt MD [address] [place] [address] PCP - General Internal Medicine 02/26/23 Kirby Holt MD [address] [facility] [address] [place] [address] PCP - ACO Reach 11/06/23 Humera Santiago LPN 11/25/24 Reason for Visit (unrecogniz ed section and content) Reason Comments Follow-up Diabetes Med Refill [facility]COCET--[facility] Reason Comments Follow-up Pain med Diabetes Med Refill Lisinopril,lamisil,p ercocet-- [facility] Reason Onset Date Comments Med Refill 06/02/2024 Reason Comments Back Pain Reason Onset Date Comments Med Refill 09/29/2024 Reason Onset Date Comments Med Refill 10/31/2024 Reason Comments Med Refill Lamisil, Percocet Reason Onset Date Comments Med Refill 12/12/2024 Reason Onset Date Comments Med Refill 01/18/2025 Reason Comments Abdominal Pain FOR RECORDS PERTAINING TO PATIENTS WHO ARE OR HAVE BEEN ENROLLED IN A CHEMICAL DEPENDENCY/SUBSTANCEABUSE PROGRAM, SOME INFORMATION MAY BE OMITTED. This clinical summary was aggregated from multiple sources. Caution should be exercised in using it in the provision of clinical care. This summary normalizes information from multiple sources, and as a consequence, information in this document may materially change the coding, format and clinical context of patient data. In addition, data may be omitted in some cases. CLINICAL DECISIONS SHOULD BE BASED ON THE PRIMARY CLINICAL RECORDS. [employer] [facility]. provides no warranty or guarantee of the accuracy or completeness of information in this document.
== END 2025-01-31 13:49 | disposition home or self-care (01) ==
LOC: CT 13:50
PROVIDERS: Family Provider Internal Medicine; Visit Provider Internal Medicine
DX: R10.84 Generalized abdominal pain (principal); R63.4 Abnormal weight loss; K86.89 Other specified diseases of pancreas
CPT/HCPCS: 36415; 74177; 80053; 82150; 83690; 85025; Q9967